=== PATIENT | male | born 1990 | race Caucasian/White ===

== ENCOUNTER 2017-04-25 16:50 | Inpatient (IN) ==
[2017-04-25 18:13] LABS: Basophils % 0.2 %; Eosinophils # 0.2 K/mcL (0.0-0.6); Hematocrit 41.9 % (37.5-50.1); Hemoglobin 14.3 g/dL (12.9-16.9); INR 1.4; Lymphocytes # 1.4 K/mcL (0.6-4.6); Lymphocytes % 7.1 %; Mean Corpuscular HGB Conc 34.1 g/dL (31.6-35.5); Mean Corpuscular Hemoglobin 31.6 pg (28.0-33.3); Mean Corpuscular Volume 92.5 fL (83.0-100.0); Mean Platelet Volume 9.4 fL (9.4-12.4); Monocytes % 4.9 %; Neutrophils # 16.6 K/mcL (1.6-8.9); Platelet Count 153 K/mcL (140-400); Prothrombin Time 15.1 Seconds (9.4-12.1); Red Blood Count 4.53 M/mcL (4.19-5.50); Red Cell Distribution Width 12.3 % (11.5-14.5); Segmented Neutrophils % 85.8 %
[2017-04-25 18:16] LABS: Activated Partial Thrombo Time 30.5 Seconds (26.0-36.0)
[2017-04-25] MEDS: 0.9 % Sodium Chloride 1,000 ML IVC SCH ×3 (18:21→22:57)
[2017-04-25] MEDS ORDERED: Piperacillin/Tazobactam 3.375 GM in D5% in Water (Mini-Bag+) 100 ML IVPB ONE (18:21)
[2017-04-25] MEDS ORDERED: *HR* FentaNYL (PF) 100 MCG/2 ML VIAL IVP ONE (18:21)
[2017-04-25 18:23] LABS: Alanine Aminotransferase 47 Units/L (0-55); Albumin 3.2 g/dL (3.5-5.0); Albumin/Globulin Ratio 0.9 (1.1-2.2); Alkaline Phosphatase 89 Units/L (38-126); Aspartate Amino Transferase 16 Units/L (5-34); BUN/Creatinine Ratio 11 (6-26); Bilirubin,Direct 0.2 mg/dL (0.0-0.5); Bilirubin,Indirect 0.4 mg/dL (0.0-1.2); Bilirubin,Total 0.6 mg/dL (0.2-1.2); Blood Urea Nitrogen 11 mg/dL (8-26); Calcium 10.4 mg/dL (8.6-10.8); Carbon Dioxide 19 mEq/L (19-29); Chloride 100 mEq/L (98-109); Globulin 3.7 g/dL (2.4-3.5); Glucose 474 mg/dL (70-99); Magnesium 1.7 mg/dL (1.6-2.6); Osmolality,Calculated 288 (280-300); Phosphorous 1.8 mg/dL (2.3-4.7); Potassium 4.5 mEq/L (3.5-4.5); Sodium 129 mEq/L (136-145); Total Protein 6.9 g/dL (6.0-8.3); eGFR For African Americans > 60 (> 60); eGFR For Non-African Americans > 60 (> 60)
--- NOTE | 2017-04-25 18:37 | Emergency Department Note ---
Disposition Clinical Impression: Sepsis Qualifiers: Sepsis type: sepsis due to unspecified organism Qualified Code(s): A41.9 - Sepsis, unspecified organism Cellulitis Qualifiers: Site of cellulitis: extremity Site of cellulitis of extremity: lower extremity Laterality: left Qualified Code(s): L03.116 - Cellulitis of left lower limb Disposition: Admitted As Inpatient Condition: Good Skin/Abscess/FB HPI Chief complaint: ED Skin/Abscess/Foreign Body Stated complaint: abscess to leg Time Seen by Provider: 04/25/17 17:33 Source: patient Mode of arrival: ambulatory Limitations: no limitations Nursing Notes Reviewed: Yes Vital Signs Reviewed: Yes HPI Narrative: 26-year-old male presents to the emergency department with concerns of pain and swelling to the left lower extremity. Patient states he has long history of abscesses of the groin. He tried "popping a pimple" of the left medial thigh within the past week. It developed increasing redness and pain. He was seen in urgent care within the past 2 days who incised and drained the area. They also gave him a prescription of doxycycline of which she has taken 2-3 doses. He should not states the erythema has increased and his pain is increased. Patient is now febrile and tachycardic in the emergency department. Home Medications Medication Instructions Recorded Confirmed Buprenorphine HCl/Naloxone HCl 1.5 each SL DAILY 04/25/17 04/25/17 [Suboxone 8 mg-2 mg Sl Film] Doxycycline Hyclate [Vibramycin] 100 mg PO BID 04/25/17 04/25/17 Gabapentin [Neurontin] 300 mg PO TID PRN 04/25/17 04/25/17 Ibuprofen [Motrin] 800 mg PO Q6H PRN 04/25/17 04/25/17 Allergies Allergy/AdvReac Type Severity Reaction Status Date / Time amphotericin B Allergy Anaphylaxis Verified 04/25/17 17:23 clindamycin Allergy Rash Verified 06/06/16 19:10 vancomycin Allergy Rash Verified 06/06/16 19:10 All systems ED: reviewed and negative except as stated. Review of Systems: As Per HPI Constitutional: Reports: fever. Denies: weakness Cardiovascular: Denies: chest pain, palpitations, dyspnea on exertion Respiratory: Denies: cough, dyspnea, wheezes Gastrointestinal: Reports: nausea. Denies: abdominal pain Musculoskeletal: Denies: back pain, neck pain Integumentary: Reports: rash. Denies: abrasion, lesions Past Medical History - Past Medical History Attestation: Yes The following information was validated with the patient. Source: patient Medical history: Reports: cancer Surgical history: Reports: no surgical history Psychiatric history: Reports: no psych history - Social History Smoking Status: Current every day smoker Smokeless Tobacco Status: No Alcohol use: Reports: none Drug use: Reports: none Physical Exam General: Alert and in no acute distress Skin: Warm, dry, 20 x 20 cm area of erythema to the left superior medial thigh. Head: Normocephalic and atraumatic Neck: Supple, trachea midline and no tenderness Cardiovascular: Tachycardic, no murmur, normal perfusion Respiratory: CTAB, no wheezing, cough, or respiratory distress Musculoskeletal: Normal strength, no tenderness, swelling or deformity GI: Soft, nontender, nondistended. Bowel sounds present Neuro: A&O to person, place, time and situation. No focal deficits noted on exam Psychiatric: cooperative and appropriate mood and affect. - General General appearance: alert, in no apparent distress Course Vital Signs Temperature 101.9 F H 04/25/17 17:20 Pulse Rate 131 04/25/17 17:20 Respiratory Rate 16 04/25/17 17:20 Blood Pressure 121/80 04/25/17 17:20 O2 Sat by Pulse Oximetry 96 04/25/17 17:20 Temperature 0 F L 04/25/17 20:13 Pulse Rate 110 04/25/17 19:09 Respiratory Rate 18 04/25/17 20:13 Blood Pressure 124/82 04/25/17 20:13 O2 Sat by Pulse Oximetry 98 04/25/17 19:09 Oxygen Delivery Oxygen Delivery Room Air Skin/Abscess/Foreign Body - MDM Narrative Medical decision making narrative: Patient is likely septic from his cellulitis. Bedside ultrasound did not reveal evidence of abscess for drainage. Patient given Zosyn and Linezolid in the emergency department. Patient admitted to the hospital for further care and evaluation. - Medical Records Medical records reviewed: Yes I reviewed the patient's medical records. - Lab Data Lab results reviewed: Yes I reviewed the patient's lab results. Result diagrams: 04/25/17 17:55 04/25/17 17:55 Lab Results 04/25/17 04/25/17 04/25/17 Range/Units 17:55 17:55 17:55 WBC 19.3 H (4.3-11.1) K/mcL RBC 4.53 (4.19-5.50) M/mcL Hgb 14.3 (12.9-16.9) g/dL Hct 41.9 (37.5-50.1) % MCV 92.5 (83.0-100.0) fL MCH 31.6 (28.0-33.3) pg MCHC 34.1 (31.6-35.5) g/dL RDW 12.3 (11.5-14.5) % Plt Count 153 (140-400) K/mcL MPV 9.4 (9.4-12.4) fL Immature Gran % 1.0 (0-4) % Seg Neutrophils % 85.8 % Lymphocytes % 7.1 % Monocytes % 4.9 % Eosinophils % 1.0 % Basophils % 0.2 % Neutrophils # 16.6 H (1.6-8.9) K/mcL Lymphocytes # 1.4 (0.6-4.6) K/mcL Monocytes # 1.0 (0.0-1.3) K/mcL Eosinophils # 0.2 (0.0-0.6) K/mcL Basophils # 0.0 (0.0-0.2) K/mcL PT 15.1 H (9.4-12.1) Seconds INR 1.4 APTT 30.5 (26.0-36.0) Seconds Sodium 129 L (136-145) mEq/L Potassium 4.5 (3.5-4.5) mEq/L Chloride 100 (98-109) mEq/L Carbon Dioxide 19 (19-29) mEq/L BUN 11 (8-26) mg/dL Creatinine 0.97 (0.72-1.25) mg/dL Est GFR ( Amer) > 60 (> 60) Est GFR (Non-Af Amer) > 60 (> 60) BUN/Creatinine Ratio 11 (6-26) Glucose 474 H (70-99) mg/dL Calculated Osmolality 288 (280-300) Lactic Acid (0.5-2.2) mmol/L Calcium 10.4 (8.6-10.8) mg/dL Phosphorus 1.8 L (2.3-4.7) mg/dL Magnesium 1.7 (1.6-2.6) mg/dL Total Bilirubin 0.6 (0.2-1.2) mg/dL Direct Bilirubin 0.2 (0.0-0.5) mg/dL Indirect Bilirubin 0.4 (0.0-1.2) mg/dL AST 16 (5-34) Units/L ALT 47 (0-55) Units/L Alkaline Phosphatase 89 (38-126) Units/L Troponin I (0-0.03) ng/mL Serum Total Protein 6.9 (6.0-8.3) g/dL Albumin 3.2 L (3.5-5.0) g/dL Globulin 3.7 H (2.4-3.5) g/dL Albumin/Globulin Ratio 0.9 L (1.1-2.2) 04/25/17 04/25/17 Range/Units 17:55 17:55 WBC (4.3-11.1) K/mcL RBC (4.19-5.50) M/mcL Hgb (12.9-16.9) g/dL Hct (37.5-50.1) % MCV (83.0-100.0) fL MCH (28.0-33.3) pg MCHC (31.6-35.5) g/dL RDW (11.5-14.5) % Plt Count (140-400) K/mcL MPV (9.4-12.4) fL Immature Gran % (0-4) % Seg Neutrophils % % Lymphocytes % % Monocytes % % Eosinophils % % Basophils % % Neutrophils # (1.6-8.9) K/mcL Lymphocytes # (0.6-4.6) K/mcL Monocytes # (0.0-1.3) K/mcL Eosinophils # (0.0-0.6) K/mcL Basophils # (0.0-0.2) K/mcL PT (9.4-12.1) Seconds INR APTT (26.0-36.0) Seconds Sodium (136-145) mEq/L Potassium (3.5-4.5) mEq/L Chloride (98-109) mEq/L Carbon Dioxide (19-29) mEq/L BUN (8-26) mg/dL Creatinine (0.72-1.25) mg/dL Est GFR ( Amer) (> 60) Est GFR (Non-Af Amer) (> 60) BUN/Creatinine Ratio (6-26) Glucose (70-99) mg/dL Calculated Osmolality (280-300) Lactic Acid 1.7 (0.5-2.2) mmol/L Calcium (8.6-10.8) mg/dL Phosphorus (2.3-4.7) mg/dL Magnesium (1.6-2.6) mg/dL Total Bilirubin (0.2-1.2) mg/dL Direct Bilirubin (0.0-0.5) mg/dL Indirect Bilirubin (0.0-1.2) mg/dL AST (5-34) Units/L ALT (0-55) Units/L Alkaline Phosphatase (38-126) Units/L Troponin I 0.01 (0-0.03) ng/mL Serum Total Protein (6.0-8.3) g/dL Albumin (3.5-5.0) g/dL Globulin (2.4-3.5) g/dL Albumin/Globulin Ratio (1.1-2.2) - Radiology Data Radiology results reviewed: Yes I reviewed the patient's radiology results. - EKG Data EKG attestation: Yes I reviewed and interpreted this EKG. EKG results narrative: Sinus tachycardia with a rate of 119 without evidence of ischemia or STEMI.
[2017-04-25] MEDS ORDERED: *HR* Promethazine 25 MG/ML VIAL IVP ONE (19:29)
[2017-04-25] MEDS ORDERED: Gabapentin 300 MG CAPSULE PO PRN (20:34)
[2017-04-25] MEDS ORDERED: Naloxone 0.4 MG/ML INJ IVP PRN (20:36)
[2017-04-25] MEDS ORDERED: *HR* Dextrose 50 % in Water (Syg) 50 ML SYRINGE IVP PRN (20:44)
[2017-04-25] MEDS ORDERED: Dextrose Gel 15 GM PO PRN ×2 (20:44)
[2017-04-25] MEDS ORDERED: D5% in Water 1,000 ML IVC PRN (20:44)
--- NOTE | 2017-04-25 20:51 | Internal Med History&Physical ---
Date of Encounter: 04/25/17 Time of Encounter: 20:48 Assessment and Plan (1) Abscess Current visit: Yes Status: Acute with overlying cellulitis. Continue linezolid in the ED given allergies. D/w Dr Lord of surgery who will evaluated in the morning. IVF (2) Cellulitis Current visit: Yes Status: Acute continue antibiotics above Qualifiers: Site of cellulitis: extremity Site of cellulitis of extremity: lower extremity Qualified Code(s): L03.116 - Cellulitis of left lower limb (3) Diabetes type 2, uncontrolled Current visit: Yes Status: Acute no prior hx of DMII but sugars high. Check A1c, ISS for now. Likely newly dx DMII Qualifiers: Diabetes mellitus complication status: with hyperglycemia Diabetes mellitus rat exterminator insulin use: unspecified rat exterminator insulin use status Qualified Code(s): E11.65 - Type 2 diabetes mellitus with hyperglycemia Internal Medicine - H&P: HPI Chief complaint: Left thigh abscess History of present illness: Mr. Ansari is a 26 year old male who presents with acute left medial thigh abscess and cellulitis. He has a hx of recurrent cellulitis around his inner thighs. 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 He explained that he would often that a folliculitis that progress into an abscess. In the last 2 days, noted progressive swelling, erythema and pain locally. He went to the [facility] [place] urgent care where is was drained yesterday evening but developed worsening swelling and erythema leading to ED visit. Associated with fever 102, 101.9 Of note, he has allergy to clinda and vanco on chart He uses suboxone and appears to be off drugs at current Past Med Surg Social Fam HX - Past Medical History Medical history: cancer Psychiatric history: no psych history - Past Surgical History Surgical History: no surgical history - Social History Smoking Status: Current every day smoker Smokeless Tobacco Status: No Alcohol use: none Drug use: none Internal Medicine - H&P: Meds Buprenorphine HCl/Naloxone HCl [Suboxone 8 mg-2 mg Sl Film] 1.5 each SL DAILY [History] Doxycycline Hyclate [Vibramycin] 100 mg PO BID 04/25/17 [History] Gabapentin [Neurontin] 300 mg PO TID PRN 04/25/17 [History] Ibuprofen [Motrin] 800 mg PO Q6H PRN 04/25/17 [History] 3 Allergy/AdvReac Type Severity Reaction Status Date / Time amphotericin B Allergy Anaphylaxis Verified 04/25/17 17:23 clindamycin Allergy Rash Verified 06/06/16 19:10 vancomycin Allergy Rash Verified 06/06/16 19:10 All Systems PM: A 10-system review of systems was performed and is negative for pertinent findings except as documented above in the HPI. Review of systems: ROS 14 point review of systems reviewed as best as possible given presentation. Pertinent positive or negative as per HPI or otherwise reviewed as negative - Constitutional Vitals: Temp Pulse Resp BP Pulse Ox 0 F L 110 18 124/82 98 04/25/17 20:13 04/25/17 19:09 04/25/17 20:13 04/25/17 20:13 04/25/17 19:09 Exam: General - AAO x 3. Obesity Psych - Appropriate affect/speech. No agitation Eyes - OFELIA. Eye lids intact. No scleral icterus Heart - Sinus. RRR. S1 and S2 present. No added HS/murmurs appreciated. No elevated JVD appreciated. Lung - Adequate air entry b/l, No crackles/wheezes appreciated GI - Soft, non-tender. No hepatosplenomegaly/ascites. BS+ - No CVA/suprapubic tenderness or palpable bladder distension Skin -left thigh by erythema and swelling MSK - Joints with normal ROM. No joint swellings Internal Med - H&P Results - Labs CBC & Chem 7: 04/25/17 17:55 04/25/17 17:55
[2017-04-25] MEDS ORDERED: 0.9 % Sodium Chloride 1,000 ML IVC ONE (20:56)
[2017-04-25] MEDS: Ibuprofen 800 MG TABLET PO PRN (23:02)
[2017-04-26] MEDS: *HR* Morphine 2 MG/ML SYRINGE IVP PRN ×5 (00:12→22:36)
[2017-04-26] MEDS: Insulin LISPRO 300 UNITS/3 ML VIAL SQ SCH ×5 (01:23→21:12)
[2017-04-26] MEDS: *HR* Enoxaparin 40 MG/0.4 ML SYRINGE SQ SCH ×2 (05:30→05:34)
[2017-04-26 05:59] LABS: Basophils % 0.2 %; Eosinophils # 0.3 K/mcL (0.0-0.6); Hematocrit 39.2 % (37.5-50.1); Hemoglobin 12.9 g/dL (12.9-16.9); Immature Granulocytes % 1.4 % (0-4); Lymphocytes # 1.5 K/mcL (0.6-4.6); Lymphocytes % 9.3 %; Mean Corpuscular HGB Conc 32.9 g/dL (31.6-35.5); Mean Corpuscular Hemoglobin 30.6 pg (28.0-33.3); Mean Corpuscular Volume 93.1 fL (83.0-100.0); Mean Platelet Volume 9.3 fL (9.4-12.4); Monocytes % 5.8 %; Neutrophils # 13.4 K/mcL (1.6-8.9); Platelet Count 148 K/mcL (140-400); Red Blood Count 4.21 M/mcL (4.19-5.50); Red Cell Distribution Width 12.4 % (11.5-14.5); Segmented Neutrophils % 81.3 %
[2017-04-26 06:05] LABS: Hemoglobin A1C 7.4 %
[2017-04-26 06:09] LABS: BUN/Creatinine Ratio 13 (6-26); Blood Urea Nitrogen 10 mg/dL (8-26); Calcium 9.5 mg/dL (8.6-10.8); Carbon Dioxide 23 mEq/L (19-29); Chloride 104 mEq/L (98-109); Glucose 283 mg/dL (70-99); Osmolality,Calculated 287 (280-300); Sodium 134 mEq/L (136-145); eGFR For African Americans > 60 (> 60); eGFR For Non-African Americans > 60 (> 60)
[2017-04-26] MEDS ORDERED: *HR* Buprenorphine HCl 8 MG TAB.SUBL SL SCH (09:00)
[2017-04-26] MEDS ORDERED: Patient Taking Own Medication 1 EACH SL SCH (09:00)
--- NOTE | 2017-04-26 10:37 | General Surgery Consult Note ---
<Katie Baker Doreen - Last Filed: 04/26/17 10:34> Date of Encounter: 04/26/17 Time of Encounter: 10:35 Assessment and Plan (1) Cellulitis Current Visit: Yes Status: Acute Ultrasound soft tissue left lower extremity, continue IV antibiotics continue packing 1/4 inch playing gauze to the previous I and D site further recommendations pending Will add Duoneb treatments given smoking history and current wheezes Qualifiers: Site of cellulitis: extremity Site of cellulitis of extremity: lower extremity Laterality: left Qualified Code(s): L03.116 - Cellulitis of left lower limb (2) Smoking addiction Current Visit: Yes Status: Chronic Scheduled Duonebs Smoking Cessation (3) Sepsis Current Visit: Yes Status: Acute Per medicine Qualifiers: Sepsis type: sepsis due to unspecified organism Qualified Code(s): A41.9 - Sepsis, unspecified organism History of Present Illness Consult date: 04/25/17 (Dr. Gurinder Causey) Reason for consult: other (LLE abscess) Requesting physician: Chaz Benson History of present illness: Constantine is a 26 year old male with a history of AML (2005 and treated with chemo/radiation), DVT, smoking addiction (one pack per day for 7 years), obesity, opioid dependency (uses Suboxone) and frequent skin abscesses/ folliculitis. He presented yesterday with complaints of left lower extremity abscess, fever, and left leg discomfort. He states he had went to an urgent care where the abscess was drained, packed, and he was given a Rocephin injection as well as DC online doxycycline. He states that the discomfort and size of the abscess has only gotten larger. He is noted to have an allergy to vancomycin and clindamycin. He denies headache, dizziness chest pain, shortness of breath, nausea, vomiting , changes in bowel habits, or IV drug use. We have been asked to evaluate the patient for possible surgical intervention for left lower extremity abscess. Past Med Surg Social Fam HX - Past Medical History Source: patient Medical history: cancer, DVT Psychiatric history: no psych history - Past Surgical History Surgical History: no surgical history - Social History Smoking Status: Current every day smoker Packs per day: 1 Smokeless Tobacco Status: No Alcohol use: none Drug use: none Occupational status: unemployed (Fast-food porter) Current living situation: Home - Independent Recent Out of Country Travel Within the Last 8 Weeks: No Exposure or Possible Exposure to Illness During Travel: No - Family History Mother Living Status: Still Living Hx Family Endocrine Disorder: Yes (DM) Father Living Status: Still Living Hx Family Cardiac Disorders: Yes Medications and Allergies Buprenorphine HCl/Naloxone HCl [Suboxone 8 mg-2 mg Sl Film] 1.5 each SL DAILY [History] Doxycycline Hyclate [Vibramycin] 100 mg PO BID 04/25/17 [History] Gabapentin [Neurontin] 300 mg PO TID PRN 04/25/17 [History] Ibuprofen [Motrin] 800 mg PO Q6H PRN 04/25/17 [History] 3 Allergy/AdvReac Type Severity Reaction Status Date / Time amphotericin B Allergy Anaphylaxis Verified 04/25/17 17:23 clindamycin Allergy Rash Verified 06/06/16 19:10 vancomycin Allergy Rash Verified 06/06/16 19:10 Review of Systems All systems PM: A 10-system review of systems was performed and is negative for pertinent findings except as documented above in the HPI. General Surgery Exam Initial Vital Signs Temp Pulse Resp BP Pulse Ox 101.9 F H 131 16 121/80 96 04/25/17 17:20 04/25/17 17:20 04/25/17 17:20 04/25/17 17:20 04/25/17 17:20 - General physical appearance well developed, well nourished, no distress, obese - ENT atraumatic, normocephalic - Neck trachea midline, no venous distension - Respiratory other (Decreased respiratory expansion. Upper lobe expiratory wheezes) - Cardiovascular Cardiovascular exam: Present: RRR, distant heart sounds - Abdomen Abdomen general surgery: Present: bowel sounds present, soft, non tender Hernia: Present: none - Integumentary Integumentary general surgery: Present: warm and dry, other (Left medial thigh with approximately cantaloupe sized area of cellulitis. No area of fluctuations is appreciated. There is a small previous incision with packing in place. The packing is removed no purluent drainage noted. Multiple tattoos noted.) - Neurologic Present: CN 2-12 grossly intact, normal coordination, normal sensation - Musculoskeletal Present: normal gait, normal posture - Psychiatric Psychiatric general surgery: Present: A&Ox3, appropriate, oriented to person, oriented to place, oriented to time, speech is normal, memory intact Exam Initial Vital Signs Temp Pulse Resp BP Pulse Ox 101.9 F H 131 16 121/80 96 04/25/17 17:20 04/25/17 17:20 04/25/17 17:20 04/25/17 17:20 04/25/17 17:20 Results - Labs 04/26/17 05:49 04/26/17 05:49 Abnormal lab results WBC 16.4 K/mcL (4.3-11.1) H 04/26/17 05:49 MPV 9.3 fL (9.4-12.4) L 04/26/17 05:49 Neutrophils # 13.4 K/mcL (1.6-8.9) H 04/26/17 05:49 PT 15.1 Seconds (9.4-12.1) H 04/25/17 17:55 Sodium 134 mEq/L (136-145) L 04/26/17 05:49 Glucose 283 mg/dL (70-99) H 04/26/17 05:49 POC Glucose 276 (58-89) H 04/26/17 07:09 Hemoglobin A1c 7.4 % (-5.6) H 04/26/17 05:49 Phosphorus 1.8 mg/dL (2.3-4.7) L 04/25/17 17:55 Albumin 3.2 g/dL (3.5-5.0) L 04/25/17 17:55 Globulin 3.7 g/dL (2.4-3.5) H 04/25/17 17:55 Albumin/Globulin Ratio 0.9 (1.1-2.2) L 04/25/17 17:55 Diabetes panel 04/26/17 04/26/17 Range/Units 05:49 05:49 Sodium 134 L (136-145) mEq/L Potassium 4.0 (3.5-4.5) mEq/L Chloride 104 (98-109) mEq/L Carbon Dioxide 23 (19-29) mEq/L BUN 10 (8-26) mg/dL Creatinine 0.80 (0.72-1.25) mg/dL Glucose 283 H (70-99) mg/dL Hemoglobin A1c 7.4 H ( - 5.6) % Calcium 9.5 (8.6-10.8) mg/dL Calcium panel 04/26/17 Range/Units 05:49 Calcium 9.5 (8.6-10.8) mg/dL Pituitary panel 04/26/17 Range/Units 05:49 Sodium 134 L (136-145) mEq/L Potassium 4.0 (3.5-4.5) mEq/L Chloride 104 (98-109) mEq/L Carbon Dioxide 23 (19-29) mEq/L BUN 10 (8-26) mg/dL Creatinine 0.80 (0.72-1.25) mg/dL Glucose 283 H (70-99) mg/dL Calcium 9.5 (8.6-10.8) mg/dL Adrenal panel 04/26/17 Range/Units 05:49 Sodium 134 L (136-145) mEq/L Potassium 4.0 (3.5-4.5) mEq/L Chloride 104 (98-109) mEq/L Carbon Dioxide 23 (19-29) mEq/L BUN 10 (8-26) mg/dL Creatinine 0.80 (0.72-1.25) mg/dL Glucose 283 H (70-99) mg/dL Calcium 9.5 (8.6-10.8) mg/dL All other labs normal. Consult Discharge Plan - Plan Referrals: Leona Calderón MD [Primary Care Provider] - <Gurinder Causey - Last Filed: 04/26/17 14:19> Date of Encounter: 04/26/17 Review of Systems All systems PM: A 10-system review of systems was performed and is negative for pertinent findings except as documented above in the HPI. General Surgery Exam Initial Vital Signs Temp Pulse Resp BP Pulse Ox 101.9 F H 131 16 121/80 96 04/25/17 17:20 04/25/17 17:20 04/25/17 17:20 04/25/17 17:20 04/25/17 17:20 Exam Initial Vital Signs Temp Pulse Resp BP Pulse Ox 101.9 F H 131 16 121/80 96 04/25/17 17:20 04/25/17 17:20 04/25/17 17:20 04/25/17 17:20 04/25/17 17:20 Results - Labs 04/26/17 05:49 04/26/17 05:49 Abnormal lab results WBC 16.4 K/mcL (4.3-11.1) H 04/26/17 05:49 MPV 9.3 fL (9.4-12.4) L 04/26/17 05:49 Neutrophils # 13.4 K/mcL (1.6-8.9) H 04/26/17 05:49 PT 15.1 Seconds (9.4-12.1) H 04/25/17 17:55 Sodium 134 mEq/L (136-145) L 04/26/17 05:49 Glucose 283 mg/dL (70-99) H 04/26/17 05:49 POC Glucose 270 (58-89) H 04/26/17 11:58 Hemoglobin A1c 7.4 % (-5.6) H 04/26/17 05:49 Phosphorus 1.8 mg/dL (2.3-4.7) L 04/25/17 17:55 Albumin 3.2 g/dL (3.5-5.0) L 04/25/17 17:55 Globulin 3.7 g/dL (2.4-3.5) H 04/25/17 17:55 Albumin/Globulin Ratio 0.9 (1.1-2.2) L 04/25/17 17:55 Diabetes panel 04/26/17 04/26/17 Range/Units 05:49 05:49 Sodium 134 L (136-145) mEq/L Potassium 4.0 (3.5-4.5) mEq/L Chloride 104 (98-109) mEq/L Carbon Dioxide 23 (19-29) mEq/L BUN 10 (8-26) mg/dL Creatinine 0.80 (0.72-1.25) mg/dL Glucose 283 H (70-99) mg/dL Hemoglobin A1c 7.4 H ( - 5.6) % Calcium 9.5 (8.6-10.8) mg/dL Calcium panel 04/26/17 Range/Units 05:49 Calcium 9.5 (8.6-10.8) mg/dL Pituitary panel 04/26/17 Range/Units 05:49 Sodium 134 L (136-145) mEq/L Potassium 4.0 (3.5-4.5) mEq/L Chloride 104 (98-109) mEq/L Carbon Dioxide 23 (19-29) mEq/L BUN 10 (8-26) mg/dL Creatinine 0.80 (0.72-1.25) mg/dL Glucose 283 H (70-99) mg/dL Calcium 9.5 (8.6-10.8) mg/dL Adrenal panel 04/26/17 Range/Units 05:49 Sodium 134 L (136-145) mEq/L Potassium 4.0 (3.5-4.5) mEq/L Chloride 104 (98-109) mEq/L Carbon Dioxide 23 (19-29) mEq/L BUN 10 (8-26) mg/dL Creatinine 0.80 (0.72-1.25) mg/dL Glucose 283 H (70-99) mg/dL Calcium 9.5 (8.6-10.8) mg/dL All other labs normal. - Attending Attestation I examined this patient and my medical decision-making was reviewed with the Resident Physician. I agree with the documented findings, disposition and treatment plan as described except to the extent set forth below. The patient is seen and evaluated with the resident. I made careful evaluation of the left thigh. He has a good deal of erythema but the ultrasound in the emergency room failed to demonstrate a fluid collection. We will repeat the ultrasound of the left thigh and continue treating aggressively with IV antibiotics. His hemoglobin A1c is elevated. Gurinder Causey MD FACS
[2017-04-26] MEDS: Ipratropium/Albuterol Neb 3 ML IH SCH ×6 (11:17→23:17)
[2017-04-26] MEDS: 0.9 % Sodium Chloride 1,000 ML IVC SCH (17:02)
--- NOTE | 2017-04-26 17:47 | Internal Med Progress Note ---
Date of Encounter: 04/26/17 Time of Encounter: 10:00 - Assessment and plan (1) Cellulitis Current Visit: Yes Status: Acute Assessment and plan: -General surgery following recommendations to continue packing 1/4 inch playing gauze to the previous I and D site. -Will continue IV linezolid. Qualifiers: Site of cellulitis: extremity Site of cellulitis of extremity: lower extremity Laterality: left Qualified Code(s): L03.116 - Cellulitis of left lower limb (2) Sepsis Current Visit: Yes Status: Resolved Assessment and plan: -Secondary to above Qualifiers: Sepsis type: sepsis due to unspecified organism Qualified Code(s): A41.9 - Sepsis, unspecified organism (3) Diabetes type 2, uncontrolled Current Visit: Yes Status: Acute Assessment and plan: -Patient claims not to be diabetic per nursing. -Patient will be covered with sliding scale insulin while inpatient. Qualifiers: Diabetes mellitus complication status: with hyperglycemia Diabetes mellitus fdc insulin use: unspecified continuous churn buttermaker insulin use status Qualified Code(s): E11.65 - Type 2 diabetes mellitus with hyperglycemia - Subjective Interval history: Patient with left lower extremity discomfort secondary to left lower leg cellulitis. - Constitutional Vitals: Temp Pulse Resp BP Pulse Ox 99.5 F 112 18 147/84 96 04/26/17 15:07 04/26/17 15:07 04/26/17 15:07 04/26/17 15:07 04/26/17 15:07 - Respiratory Respiratory exam: Present: CTAB. Absent: accessory muscle use, rales, rhonchi, wheezes - Cardiovascular Cardiovascular exam: Present: RRR, +S1, +S2. Absent: diastolic murmur, gallop, rubs, systolic murmur - Expanded Lower Extremities Exam Lower Leg exam: Present: erythema, tenderness Internal Medicine: Result - Labs CBC & Chem 7: 04/26/17 05:49 04/26/17 05:49 Labs: Short CBC 04/26/17 Range/Units 05:49 WBC 16.4 H (4.3-11.1) K/mcL Hgb 12.9 (12.9-16.9) g/dL Hct 39.2 (37.5-50.1) % Plt Count 148 (140-400) K/mcL Neutrophils # 13.4 H (1.6-8.9) K/mcL BMP 09/27/17 05:49 Sodium 134 L Potassium 4.0 Chloride 104 Carbon Dioxide 23 BUN 10 Creatinine 0.80 Glucose 283 H Calcium 9.5 - ABG Interpretation ABG results: PT/INR, D-dimer PT 15.1 Seconds (9.4-12.1) H 04/25/17 17:55 - Impressions Impressions Extremity Ultrasound 04/26/17 10:30 IMPRESSION: Focal cellulitis at the area of concern in the medial left thigh. An underlying abscess measures at least 0.4 cm x 2.3 cm x 1.2 cm. Of note, the most medial portion of the abscess was partially excluded, and the entire extent may be slightly underestimated. Consider further evaluation with CT or MRI if there are clinical findings suggestive of deeper infection. D/ / iMtchell Davila MD / Mitchell Davila MD Interpreting Provider: Mitchell Davila MD Consult Discharge Plan - Plan Referrals: Leona Calderón MD [Primary Care Provider] -
--- NOTE | 2017-04-26 18:52 | Electrocardiograph Report ---
[place] [id number] Test Date: 2017-04-25 Pat Name: Constantine Ansari Department: 102 Room: 3A Gender: M Storage Engineer: Tmr : 1990 Requested By: Mateo Livingston Order Number: [id number] Reading MD: Parveen Lay MD Measurements Intervals [place] Rate: 119 P: 71 IN: 116 QRS: 81 QRSD: 88 T: 37 QT: 285 QTc: 356 Interpretive Statements SINUS TACHYCARDIA WITH SHORT IN INTERVAL Electronically Signed On 04-26-2017 18:51:03 EDT by Parveen Lay MD
[2017-04-27] MEDS: Ipratropium/Albuterol Neb 3 ML IH SCH ×6 (03:29→23:16)
[2017-04-27 04:45] LABS: Basophils % 0.3 %; Eosinophils # 0.3 K/mcL (0.0-0.6); Eosinophils % 2.9 %; Hematocrit 38.7 % (37.5-50.1); Hemoglobin 12.5 g/dL (12.9-16.9); Immature Granulocytes % 1.3 % (0-4); Lymphocytes # 1.8 K/mcL (0.6-4.6); Lymphocytes % 15.4 %; Mean Corpuscular HGB Conc 32.3 g/dL (31.6-35.5); Mean Corpuscular Hemoglobin 30.7 pg (28.0-33.3); Mean Corpuscular Volume 95.1 fL (83.0-100.0); Mean Platelet Volume 9.6 fL (9.4-12.4); Monocytes # 0.7 K/mcL (0.0-1.3); Monocytes % 6.3 %; Neutrophils # 8.4 K/mcL (1.6-8.9); Platelet Count 146 K/mcL (140-400); Red Blood Count 4.07 M/mcL (4.19-5.50); Red Cell Distribution Width 12.4 % (11.5-14.5); Segmented Neutrophils % 73.8 %
[2017-04-27 04:55] LABS: BUN/Creatinine Ratio 12 (6-26); Blood Urea Nitrogen 9 mg/dL (8-26); Calcium 9.4 mg/dL (8.6-10.8); Carbon Dioxide 22 mEq/L (19-29); Chloride 106 mEq/L (98-109); Glucose 323 mg/dL (70-99); Osmolality,Calculated 291 (280-300); Potassium 4.8 mEq/L (3.5-4.5); Sodium 135 mEq/L (136-145); eGFR For African Americans > 60 (> 60); eGFR For Non-African Americans > 60 (> 60)
[2017-04-27] MEDS: *HR* Morphine 2 MG/ML SYRINGE IVP PRN ×3 (05:25→18:44)
[2017-04-27] MEDS: *HR* Enoxaparin 40 MG/0.4 ML SYRINGE SQ SCH ×2 (05:25→09:35)
[2017-04-27] MEDS: 0.9 % Sodium Chloride 1,000 ML IVC SCH ×2 (05:32→09:35)
[2017-04-27] MEDS: Insulin LISPRO 300 UNITS/3 ML VIAL SQ SCH ×4 (09:34→22:33)
[2017-04-27] MEDS: Ibuprofen 800 MG TABLET PO PRN (09:35)
--- NOTE | 2017-04-27 10:45 | General Surgery Progress Note ---
Date of Encounter: 04/27/17 Time of Encounter: 10:42 - Assessment and Plan (1) Cellulitis Current Visit: Yes Status: Acute Ultrasound soft tissue left lower extremity completed yesterday and indicated a small are of fluid collection. Erythema has decreased significantly with IV ABX. Previous I&D site appears consistent with cellutlitis. There remains no area amenable to further I&D. -continue IV antibiotics -Continue Wound care daily: Remove packing. Shower/wash with soap and water. Repack with 1/4 inch plain gauze (to the previous I and D site), cover with dry dressing. Ordered warm compresses Q4H on 04/26/2017. Per pt this has not been completed. Continue warm compresses Q4H to left thigh. Will review with bedside RN. Qualifiers: Site of cellulitis: extremity Site of cellulitis of extremity: lower extremity Laterality: left Qualified Code(s): L03.116 - Cellulitis of left lower limb (2) Smoking addiction Current Visit: Yes Status: Chronic Scheduled Duonebs Smoking Cessation (3) Sepsis Current Visit: Yes Status: Resolved Per medicine Qualifiers: Sepsis type: sepsis due to unspecified organism Qualified Code(s): A41.9 - Sepsis, unspecified organism Subjective Patient reports: no new complaints, feels better, still having pain, pain is less, tolerating a regular diet, voiding w/o difficulty, no bowel movement, afebrile Objective Vital Signs - Last 8 Hours Temp Pulse Resp BP Pulse Ox 04/27/17 06:24 98.3 F 89 18 132/80 98 04/27/17 03:29 97.9 F 89 18 122/86 99 Intake and Output 04/26/17 04/27/17 04/27/17 23:59 07:59 15:59 Intake Total 780 / 780 1000 / 1000 1240 / 1240 Output Total 400 / 400 175 / 175 0 / 0 Balance 380 / 380 825 / 825 1240 / 1240 Intake: IV Fluids 300 / 300 1000 / 1000 1000 / 1000 0.9 % Sodium Chloride 1,000 ML 1000 / 1000 1000 / 1000 @ 100 mls/hr IVC .Q10H [facility] Rx#: [id number] Zyvox Premix 600mg/300mL 600 mg 300 / 300 In 300 ml @ 150 mls/hr IVPB Q12HR [facility] Rx#:[id number] Oral 480 / 480 240 / 240 Output: Urine 400 / 400 175 / 175 0 / 0 Other: Meal Dinner Breakfast Percent of Meal Consumed 100% 100% Weight 148.688 kg Blood Glucose* 230 267 Patient Weight 04/27/17 23:59 Weight 148.688 kg - General physical appearance no distress, moderate pain - ENT atraumatic, normocephalic - Neck Neck exam: trachea midline - Respiratory normal expansion, normal respiratory effort, clear to auscultation - Cardiovascular Cardiovascular exam: Present: RRR, distant heart sounds - Abdomen Abdomen: Present: bowel sounds present, soft, non tender - Integumentary no rash, other (LLE (thigh) erythema has decreased. The area surrounding the previous I&D site appears consistent with cellutlitis. There remains no area amenable to furhter I&D.) - Neurologic CN 2-12 grossly intact, normal coordination - Musculoskeletal normal gait - Psychiatric oriented to time, oriented to person, oriented to place, speech is normal, memory intact - Labs 04/27/17 04:31 04/27/17 04:31 Diabetes panel 04/27/17 Range/Units 04:31 Sodium 135 L (136-145) mEq/L Potassium 4.8 H (3.5-4.5) mEq/L Chloride 106 (98-109) mEq/L Carbon Dioxide 22 (19-29) mEq/L BUN 9 (8-26) mg/dL Creatinine 0.76 (0.72-1.25) mg/dL Glucose 323 H (70-99) mg/dL Calcium 9.4 (8.6-10.8) mg/dL Calcium panel 04/27/17 Range/Units 04:31 Calcium 9.4 (8.6-10.8) mg/dL Pituitary panel 04/27/17 Range/Units 04:31 Sodium 135 L (136-145) mEq/L Potassium 4.8 H (3.5-4.5) mEq/L Chloride 106 (98-109) mEq/L Carbon Dioxide 22 (19-29) mEq/L BUN 9 (8-26) mg/dL Creatinine 0.76 (0.72-1.25) mg/dL Glucose 323 H (70-99) mg/dL Calcium 9.4 (8.6-10.8) mg/dL Adrenal panel 04/27/17 Range/Units 04:31 Sodium 135 L (136-145) mEq/L Potassium 4.8 H (3.5-4.5) mEq/L Chloride 106 (98-109) mEq/L Carbon Dioxide 22 (19-29) mEq/L BUN 9 (8-26) mg/dL Creatinine 0.76 (0.72-1.25) mg/dL Glucose 323 H (70-99) mg/dL Calcium 9.4 (8.6-10.8) mg/dL Consult Discharge Plan - Plan Referrals: Leona Calderón MD [Primary Care Provider] -
[2017-04-27] MEDS: *HR* Metformin 500 MG TABLET PO SCH ×2 (13:30→18:35)
--- NOTE | 2017-04-27 18:46 | Internal Med Progress Note ---
Date of Encounter: 04/27/17 Time of Encounter: 10:00 - Assessment and plan (1) Cellulitis Current Visit: Yes Status: Acute Assessment and plan: -Erythema is decreasing and receding from marked borders. -General surgery following recommendations to continue packing 1/4 inch playing gauze to the previous I and D site. -Will continue IV linezolid. Qualifiers: Site of cellulitis: extremity Site of cellulitis of extremity: lower extremity Laterality: left Qualified Code(s): L03.116 - Cellulitis of left lower limb (2) Sepsis Current Visit: Yes Status: Resolved Assessment and plan: -Secondary to above Qualifiers: Sepsis type: sepsis due to unspecified organism Qualified Code(s): A41.9 - Sepsis, unspecified organism (3) Diabetes type 2, uncontrolled Current Visit: Yes Status: Acute Assessment and plan: -Patient started on metformin. Qualifiers: Diabetes mellitus complication status: with hyperglycemia Diabetes mellitus watermaster insulin use: unspecified watermaster insulin use status Qualified Code(s): E11.65 - Type 2 diabetes mellitus with hyperglycemia - Subjective Interval history: Patient with left lower extremity discomfort secondary to left lower leg cellulitis. - Constitutional Vitals: Temp Pulse Resp BP Pulse Ox 98.0 F 95 16 117/77 97 04/27/17 15:11 04/27/17 15:11 04/27/17 15:16 04/27/17 15:11 04/27/17 15:16 - Respiratory Respiratory exam: Present: CTAB. Absent: accessory muscle use, rales, rhonchi, wheezes - Cardiovascular Cardiovascular exam: Present: RRR, +S1, +S2. Absent: diastolic murmur, gallop, rubs, systolic murmur - Skin Skin exam: Present: erythema Additional comments: Erythema has decreased and is receding from marked borders. Internal Medicine: Result - Labs CBC & Chem 7: 04/27/17 04:31 04/27/17 04:31 Labs: Short CBC 04/27/17 Range/Units 04:31 WBC 11.4 H (4.3-11.1) K/mcL Hgb 12.5 L (12.9-16.9) g/dL Hct 38.7 (37.5-50.1) % Plt Count 146 (140-400) K/mcL Neutrophils # 8.4 (1.6-8.9) K/mcL [facility] 04/27/17 04:31 Sodium 135 L Potassium 4.8 H Chloride 106 Carbon Dioxide 22 BUN 9 Creatinine 0.76 Glucose 323 H Calcium 9.4 - ABG Interpretation ABG results: PT/INR, D-dimer PT 15.1 Seconds (9.4-12.1) H 04/25/17 17:55 Consult Discharge Plan - Plan Referrals: Leona Calderón MD [Primary Care Provider] -
[2017-04-28] MEDS: Ipratropium/Albuterol Neb 3 ML IH SCH ×3 (03:05→11:10)
[2017-04-28] MEDS: *HR* Morphine 2 MG/ML SYRINGE IVP PRN ×2 (04:41→10:49)
[2017-04-28 05:47] LABS: Basophils % 0.2 %; Eosinophils # 0.2 K/mcL (0.0-0.6); Eosinophils % 2.4 %; Hematocrit 38.8 % (37.5-50.1); Hemoglobin 12.5 g/dL (12.9-16.9); Immature Granulocytes % 0.9 % (0-4); Lymphocytes # 1.9 K/mcL (0.6-4.6); Lymphocytes % 21.9 %; Mean Corpuscular HGB Conc 32.2 g/dL (31.6-35.5); Mean Corpuscular Hemoglobin 30.4 pg (28.0-33.3); Mean Corpuscular Volume 94.4 fL (83.0-100.0); Mean Platelet Volume 9.3 fL (9.4-12.4); Monocytes # 0.6 K/mcL (0.0-1.3); Neutrophils # 5.8 K/mcL (1.6-8.9); Platelet Count 197 K/mcL (140-400); Red Blood Count 4.11 M/mcL (4.19-5.50); Red Cell Distribution Width 12.3 % (11.5-14.5); Segmented Neutrophils % 67.6 %
[2017-04-28 06:03] LABS: BUN/Creatinine Ratio 13 (6-26); Blood Urea Nitrogen 10 mg/dL (8-26); Carbon Dioxide 25 mEq/L (19-29); Chloride 103 mEq/L (98-109); Glucose 176 mg/dL (70-99); Osmolality,Calculated 285 (280-300); Sodium 136 mEq/L (136-145); eGFR For African Americans > 60 (> 60); eGFR For Non-African Americans > 60 (> 60)
[2017-04-28] MEDS: *HR* Enoxaparin 40 MG/0.4 ML SYRINGE SQ SCH (06:18)
[2017-04-28] MEDS: Insulin LISPRO 300 UNITS/3 ML VIAL SQ SCH ×2 (08:24→12:25)
[2017-04-28] MEDS: *HR* Metformin 500 MG TABLET PO SCH (08:24)
--- NOTE | 2017-04-28 09:02 | General Surgery Progress Note ---
<Ana Paula Maurice - Last Filed: 04/28/17 08:58> Date of Encounter: 04/28/17 Time of Encounter: 06:50 - Assessment and Plan (1) Abscess Current Visit: Yes Status: Acute Ultrasound soft tissue left lower extremity completed and indicated a small are of fluid collection. Erythema has decreased significantly with IV Linazolid. Previous I&D site appears consistent with cellutlitis. There remains no area amenable to further I &D. Per patient's significant other she called urgent care for the wound cultures and he was found to have MRSA. Patient placed on precautions. Plan: - continue IV antibiotics - Continue Wound care daily: Remove packing. Shower/wash with soap and water. Repack with 1/4 inch plain gauze (to the previous I and D site), cover with dry dressing. - Ordered warm compresses Q4H on 04/26/2017. Per pt this has not been completed. Continue warm compresses Q4H to left thigh. Will review with bedside RN. (2) Sepsis Current Visit: Yes Status: Resolved Patient still febrile with a max of 100.5, tachicardic and a confirmed source of infection, MRSA reported by the patient's significant other from prior culture. Continue Linezolid. Qualifiers: Sepsis type: sepsis due to unspecified organism Qualified Code(s): A41.9 - Sepsis, unspecified organism (3) Smoking addiction Current Visit: Yes Status: Chronic DuoNebs Q4hrs. Today is not wheezing. (4) Diabetes type 2, uncontrolled Current Visit: Yes Status: Acute Will delay wound healing if blood glucose is uncontrolled. Will keep sugars under control with sliding scale. Qualifiers: Diabetes mellitus complication status: with hyperglycemia Diabetes mellitus nursing home insulin use: unspecified terminal carman insulin use status Qualified Code(s): E11.65 - Type 2 diabetes mellitus with hyperglycemia Subjective Narrative: Patient is a 26-year-old male past medical history of Suboxone use, diabetes, recurrent cellulitis presented to the hospital at the left medial thigh abscess and cellulitis and found to have sepsis. Today, patient is feeling a little better and has noticed decrease in redness at the abscess site. Denies N/V, SOB, or chest pain. Objective Vital Signs - Last 8 Hours Temp Pulse Resp BP Pulse Ox 04/28/17 07:33 98.2 F 88 17 136/78 97 04/28/17 04:18 98.2 F 90 16 139/85 97 Intake and Output 04/27/17 04/28/17 04/28/17 23:59 07:59 15:59 Intake Total 540 / 540 300 / 300 Output Total 350 / 350 400 / 400 Balance 190 / 190 -400 / -400 300 / 300 Intake: IV Fluids 300 / 300 300 / 300 Zyvox Premix 600mg/300mL 600 mg 300 / 300 300 / 300 In 300 ml @ 150 mls/hr IVPB Q12HR [facility]UL[facility] Rx#:[id number] Oral 240 / 240 Output: Urine 350 / 350 400 / 400 Other: Meal Dinner Percent of Meal Consumed 100% # Voids 1 Weight 146.964 kg Blood Glucose* 222 181 Patient Weight 04/28/17 23:59 Weight 146.964 kg - Additional Exam Constitutional: Alert, in no acute distress, well nourished, well developed. Head: Normocephalic, atraumatic, normal contour and symmetric, no masses, lesions or scars Heart: Normal, regular rate and rhythm, no murmurs Lungs: Clear to auscultation, no wheezes, rales, or rhonchi Abdomen: Soft, nondistended, nontender, and no masses palpable, bowel sounds present and normal, no guarding or rigidity. Extremities: No clubbing, cyanosis, or edema, radial pulse +2/4, capillary refill <2sec. Skin: abcess present extending from the midline of the anterior aspect of his L thigh wrapping around medial to the posterior aspect, line has been drawn to delineate spread and redness has decreased from the initial margins, abscess is hard and red without fluculants with about 1.5cm incision at the epicenter. Neurologic: Cranial nerves II through XII grossly intact, no focal deficits, strength within normal limits in all extremities Psych: Cooperative with exam, good eye contact, cognitive function intact, judgment good insight good, speech clear, thought process logical, and goal directed - Labs 04/28/17 04:55 04/28/17 04:55 Diabetes panel 04/28/17 Range/Units 04:55 Sodium 136 (136-145) mEq/L Potassium 4.0 (3.5-4.5) mEq/L Chloride 103 (98-109) mEq/L Carbon Dioxide 25 (19-29) mEq/L BUN 10 (8-26) mg/dL Creatinine 0.78 (0.72-1.25) mg/dL Glucose 176 H (70-99) mg/dL Calcium 10.0 (8.6-10.8) mg/dL Calcium panel 04/28/17 Range/Units 04:55 Calcium 10.0 (8.6-10.8) mg/dL Pituitary panel 04/28/17 Range/Units 04:55 Sodium 136 (136-145) mEq/L Potassium 4.0 (3.5-4.5) mEq/L Chloride 103 (98-109) mEq/L Carbon Dioxide 25 (19-29) mEq/L BUN 10 (8-26) mg/dL Creatinine 0.78 (0.72-1.25) mg/dL Glucose 176 H (70-99) mg/dL Calcium 10.0 (8.6-10.8) mg/dL Adrenal panel 04/28/17 Range/Units 04:55 Sodium 136 (136-145) mEq/L Potassium 4.0 (3.5-4.5) mEq/L Chloride 103 (98-109) mEq/L Carbon Dioxide 25 (19-29) mEq/L BUN 10 (8-26) mg/dL Creatinine 0.78 (0.72-1.25) mg/dL Glucose 176 H (70-99) mg/dL Calcium 10.0 (8.6-10.8) mg/dL Consult Discharge Plan - Plan Referrals: Leona Calderón MD [Primary Care Provider] - Prescriptions: Sulfamethoxazole/Trimeth DS [Bactrim DS] 1 each PO BID #20 tablet <Gurinder Causey - Last Filed: 04/28/17 15:30> Date of Encounter: 04/28/17 Objective Vital Signs - Last 8 Hours Temp Pulse Resp BP Pulse Ox 04/28/17 14:39 98.0 F 103 18 157/92 96 04/28/17 10:28 98.2 F 94 18 152/87 97 04/28/17 07:33 98.2 F 88 17 136/78 97 Intake and Output 04/27/17 04/28/17 04/28/17 23:59 07:59 15:59 Intake Total 540 / 540 300 / 300 Output Total 350 / 350 400 / 400 525 / 525 Balance 190 / 190 -400 / -400 -225 / -225 Intake: IV Fluids 300 / 300 300 / 300 Zyvox Premix 600mg/300mL 600 mg 300 / 300 300 / 300 In 300 ml @ 150 mls/hr IVPB Q12HR [facility]UL[facility] Rx#:[id number] Oral 240 / 240 0 / 0 Output: Urine 350 / 350 400 / 400 525 / 525 Other: Meal Dinner Percent of Meal Consumed 100% # Voids 1 Weight 146.964 kg Blood Glucose* 222 181 197 Patient Weight 04/28/17 23:59 Weight 146.964 kg - Labs 04/28/17 04:55 04/28/17 04:55 Diabetes panel 04/28/17 Range/Units 04:55 Sodium 136 (136-145) mEq/L Potassium 4.0 (3.5-4.5) mEq/L Chloride 103 (98-109) mEq/L Carbon Dioxide 25 (19-29) mEq/L BUN 10 (8-26) mg/dL Creatinine 0.78 (0.72-1.25) mg/dL Glucose 176 H (70-99) mg/dL Calcium 10.0 (8.6-10.8) mg/dL Calcium panel 04/28/17 Range/Units 04:55 Calcium 10.0 (8.6-10.8) mg/dL Pituitary panel 04/28/17 Range/Units 04:55 Sodium 136 (136-145) mEq/L Potassium 4.0 (3.5-4.5) mEq/L Chloride 103 (98-109) mEq/L Carbon Dioxide 25 (19-29) mEq/L BUN 10 (8-26) mg/dL Creatinine 0.78 (0.72-1.25) mg/dL Glucose 176 H (70-99) mg/dL Calcium 10.0 (8.6-10.8) mg/dL Adrenal panel 04/28/17 Range/Units 04:55 Sodium 136 (136-145) mEq/L Potassium 4.0 (3.5-4.5) mEq/L Chloride 103 (98-109) mEq/L Carbon Dioxide 25 (19-29) mEq/L BUN 10 (8-26) mg/dL Creatinine 0.78 (0.72-1.25) mg/dL Glucose 176 H (70-99) mg/dL Calcium 10.0 (8.6-10.8) mg/dL - Attending Attestation I examined this patient and my medical decision-making was reviewed with the Resident Physician. I agree with the documented findings, disposition and treatment plan as described except to the extent set forth below. The patient seen and evaluated with rectal morning rounds. The area of erythema on the proximal left thigh is somewhat smaller. This does not appear to be fluctuant at this point. We will continue to monitor closely for any signs of well-developed abscess Gurinder Causey MD FACS
[2017-04-28] MEDS: Ibuprofen 800 MG TABLET PO PRN (10:49)
[2017-04-28 14:41] VITALS: BP 157/92
--- NOTE | 2017-04-28 14:53 | Discharge Summary ---
Date of Encounter: 04/28/17 Time of Encounter: 04:00 - Discharge Diagnosis (1) Cellulitis Priority: Primary Status: Acute Qualifiers: Site of cellulitis: extremity Site of cellulitis of extremity: lower extremity Laterality: left Qualified Code(s): L03.116 - Cellulitis of left lower limb (2) Sepsis Priority: Primary Status: Resolved Qualifiers: Sepsis type: sepsis due to unspecified organism Qualified Code(s): A41.9 - Sepsis, unspecified organism (3) Diabetes type 2, uncontrolled Priority: Secondary Status: Acute Qualifiers: Diabetes mellitus complication status: with hyperglycemia Diabetes mellitus fci insulin use: unspecified superintendent marine oil terminal insulin use status Qualified Code(s): E11.65 - Type 2 diabetes mellitus with hyperglycemia - Discharge Medications Prescriptions: Sulfamethoxazole/Trimeth DS [Bactrim DS] 1 each PO BID #20 tablet Home Medications: Buprenorphine HCl/Naloxone HCl [Suboxone 8 mg-2 mg Sl Film] 1.5 each SL DAILY [History] Ibuprofen [Motrin] 800 mg PO Q6H PRN 04/25/17 [History] Sulfamethoxazole/Trimeth DS [Bactrim DS] 1 each PO BID #20 tablet 04/28/17 [Rx] Allergies/Adverse Reactions: 3 Allergy/AdvReac Type Severity Reaction Status Date / Time amphotericin B Allergy Anaphylaxis Verified 04/25/17 17:23 clindamycin Allergy Rash Verified 06/06/16 19:10 vancomycin Allergy Rash Verified 06/06/16 19:10 Procedures/tests Complete & Pending: Procedures Performed prior 72 hours Category Date Time Status US extremity nonvascular LT [US] Stat Exams 04/26/17 10:30 Completed Date of admission: 04/25/17 20:36 Primary care physician: Leona Calderón Consults: 04/25/17 20:46 Consult to Surgery [CONS] Routine Consulting Provider: [facility] Reason for Consult: abscess Call Completed: Yes - Patient Status Disposition: Home Health Service - Discharge Instructions Hospital course: Patient is a 26 year old male with past medical history significant for opiate addiction (on Suboxone), morbid obesity and uncontrolled diabetes who presented to the ER on 04/25/17 with acute left medial thigh abscess and cellulitis. Patient stated that he noticed his inner thigh was red and painful approximately 2 days prior to admission. Patient does have a history of recurrent cellulitis around his inner thighs. 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 He stated that he would often have a folliculitis that progress into an abscess. During patients hospital stay, he was treated with IV linezolid. As a result, patients erythema decreased and receded from marked borders. Patients pain also improved. Patient will be discharged to continue a 10 day course of Bactrim. In addition, patient was also started on metformin during his inpatient stay and will continue on discharge. Patient has been instructed to follow-up with his primary care provider. Home health care nurse will also see patient for monitoring of left lower extremity cellulitis and to help with packing/dressing changes. - Time Spent with Patient Total time spent providing and/or coordinating discharge services: - Constitutional Vitals: Temp Pulse Resp BP Pulse Ox 98.0 F 103 18 157/92 96 04/28/17 14:39 04/28/17 14:39 04/28/17 14:39 04/28/17 14:39 04/28/17 14:39 - Skin Additional comments: Erythematous region has decreased and has receded from marked orders.
== END 2017-04-28 16:50 | disposition home health service (06) | DRG 720 ==
LOC: EMEROO 16:50 → 3ANU 16:50
PROVIDERS: ADMIT Nurse Practitioner Acute Care; ATTEND Hospitalist

== ENCOUNTER 2017-12-28 00:12 | Inpatient (IN) ==
[2017-12-28] MEDS ORDERED: 0.9 % Sodium Chloride 1,000 ML IVC ONE (00:25)
[2017-12-28 00:55] LABS: Basophils % 0.4 %; Eosinophils % 0.7 %; Hematocrit 38.2 % (37.5-50.1); Hemoglobin 12.5 g/dL (12.9-16.9); Immature Granulocytes % 0.6 % (0-4); Lymphocytes # 0.5 K/mcL (0.6-4.6); Mean Corpuscular HGB Conc 32.7 g/dL (31.6-35.5); Mean Corpuscular Hemoglobin 29.1 pg (28.0-33.3); Mean Corpuscular Volume 88.8 fL (83.0-100.0); Mean Platelet Volume 8.4 fL (9.4-12.4); Monocytes # 0.2 K/mcL (0.0-1.3); Monocytes % 3.1 %; Neutrophils # 4.6 K/mcL (1.6-8.9); Platelet Count 188 K/mcL (140-400); Segmented Neutrophils % 85.2 %
[2017-12-28 01:16] LABS: BUN/Creatinine Ratio 6 (6-26); Blood Urea Nitrogen 4 mg/dL (6-20); C-Reactive Protein 30 mg/L (Less than 10); Carbon Dioxide 27 mEq/L (23-29); Chloride 96 mEq/L (98-107); Glucose 135 mg/dL (70-105); Osmolality,Calculated 269 (280-300); Potassium 3.5 mEq/L (3.5-5.1); Sodium 130 mEq/L (136-145); eGFR For African Americans > 60 (> 60); eGFR For Non-African Americans > 60 (> 60)
--- NOTE | 2017-12-28 01:16 | Emergency Department Note ---
Disposition Clinical Impression: Cellulitis Qualifiers: Site of cellulitis: extremity Site of cellulitis of extremity: upper extremity Laterality: left Qualified Code(s): L03.114 - Cellulitis of left upper limb Disposition: Admitted As Inpatient Condition: Fair Time of Disposition: 02:36 Skin/Abscess/FB HPI Chief complaint: ED Skin/Abscess/Foreign Body Stated complaint: left arm abscess Time Seen by Provider: 12/28/17 00:19 Source: patient Mode of arrival: ambulatory Limitations: no limitations Nursing Notes Reviewed: Yes Vital Signs Reviewed: Yes HPI Narrative: Patient presents to the ED with the chief complaint of infection to his left arm. Patient states that he was lifting some steel about 2 weeks ago and it pinched his arm just below his left antecubital fossa. States that there is some induration. There that he thought that that was just from the injury. States over the preceding week he has developed swelling and redness and an ulcerated lesion there. States that yesterday he started developing fevers up to 102. States he has felt very hot and sweaty and fatigued. 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 Home Medications Medication Instructions Recorded Confirmed Buprenorphine HCl/Naloxone HCl 1.5 each SL DAILY 04/25/17 12/28/17 [Suboxone 8 mg-2 mg Sl Film] Allergies Allergy/AdvReac Type Severity Reaction Status Date / Time amphotericin B Allergy Anaphylaxis Verified 04/25/17 17:23 clindamycin Allergy Rash Verified 06/06/16 19:10 vancomycin Allergy Rash Verified 06/06/16 19:10 Review of Systems: As reviewed in the HPI. All other systems reviewed are negative or normal. Past Medical History - Past Medical History Attestation: Yes The following information was validated with the patient. Source: patient Medical history: Reports: cancer, DVT Surgical history: Reports: no surgical history Psychiatric history: Reports: no psych history - Social History Smoking Status: Current every day smoker Smokeless Tobacco Status: No Alcohol use: Reports: none Drug use: Reports: none Physical Exam - General Limitations: no limitations General appearance: alert, in no apparent distress - Head Head exam: atraumatic, normocephalic, normal inspection - Eye Eye exam: Present: normal appearance, PERRL, EOMI Course Vital Signs Temperature 100.9 F H 12/28/17 00:15 Pulse Rate 130 05/31/18 00:15 Respiratory Rate 16 12/28/17 00:15 Blood Pressure 121/64 12/28/17 00:15 O2 Sat by Pulse Oximetry 95 12/28/17 00:15 Temperature 100.0 F H 12/28/17 03:50 Pulse Rate 125 12/28/17 03:50 Respiratory Rate 18 12/28/17 03:50 Blood Pressure 134/72 12/28/17 03:50 O2 Sat by Pulse Oximetry 95 12/28/17 03:50 Oxygen Delivery Oxygen Delivery Room Air Skin/Abscess/Foreign Body - Lab Data Result diagrams: 12/28/17 00:23 12/28/17 00:23 Lab Results 12/28/17 12/28/17 12/28/17 Range/Units 00:23 00:23 00:23 WBC 5.4 (4.3-11.1) K/mcL RBC 4.30 (4.19-5.50) M/mcL Hgb 12.5 L (12.9-16.9) g/dL Hct 38.2 (37.5-50.1) % MCV 88.8 (83.0-100.0) fL MCH 29.1 (28.0-33.3) pg MCHC 32.7 (31.6-35.5) g/dL RDW 12.0 (11.5-14.5) % Plt Count 188 (140-400) K/mcL MPV 8.4 L (9.4-12.4) fL Immature Gran % 0.6 (0-4) % Seg Neutrophils % 85.2 % Lymphocytes % 10.0 % Monocytes % 3.1 % Eosinophils % 0.7 % Basophils % 0.4 % Neutrophils # 4.6 (1.6-8.9) K/mcL Lymphocytes # 0.5 L (0.6-4.6) K/mcL Monocytes # 0.2 (0.0-1.3) K/mcL Eosinophils # 0.0 (0.0-0.6) K/mcL Basophils # 0.0 (0.0-0.2) K/mcL Sodium 130 L (136-145) mEq/L Potassium 3.5 (3.5-5.1) mEq/L Chloride 96 L (98-107) mEq/L Carbon Dioxide 27 (23-29) mEq/L BUN 4 L (6-20) mg/dL Creatinine 0.71 (0.70-1.30) mg/dL Est GFR ( Amer) > 60 (> 60) Est GFR (Non-Af Amer) > 60 (> 60) BUN/Creatinine Ratio 6 (6-26) Glucose 135 H (70-105) mg/dL Calculated Osmolality 269 L (280-300) Lactic Acid 2.1 (0.5-2.2) mmol/L Calcium 9.0 (8.6-10.3) mg/dL C-Reactive Protein 30 H (Less than 10) mg/L Urine Color (Yellow) Urine Clarity (Clear) Urine pH (5.0-8.0) pH Units Ur Specific [place] (1.010-1.025) Urine Protein (Neg-Trace) mg/dL Urine Glucose (UA) (Normal) mg/dL Urine Ketones (Negative) mg/dL Urine Blood (Negative) Urine Nitrite (Negative) Urine Bilirubin (Negative) Urine Urobilinogen (Normal) mg/dL Ur Leukocyte Esterase (Negative) Urine Microscopic RBC (0-3) per hpf Urine Microscopic WBC (0-3) per hpf Ur Squamous Epith Cells (None-Few) per lpf Urine Bacteria (None-Few) per hpf Hyaline Casts (None-Few) per lpf Ur Culture Indicated? (NO) 12/28/17 Range/Units 02:00 WBC (4.3-11.1) K/mcL RBC (4.19-5.50) M/mcL Hgb (12.9-16.9) g/dL Hct (37.5-50.1) % MCV (83.0-100.0) fL MCH (28.0-33.3) pg MCHC (31.6-35.5) g/dL RDW (11.5-14.5) % Plt Count (140-400) K/mcL MPV (9.4-12.4) fL Immature Gran % (0-4) % Seg Neutrophils % % Lymphocytes % % Monocytes % % Eosinophils % % Basophils % % Neutrophils # (1.6-8.9) K/mcL Lymphocytes # (0.6-4.6) K/mcL Monocytes # (0.0-1.3) K/mcL Eosinophils # (0.0-0.6) K/mcL Basophils # (0.0-0.2) K/mcL Sodium (136-145) mEq/L Potassium (3.5-5.1) mEq/L Chloride (98-107) mEq/L Carbon Dioxide (23-29) mEq/L BUN (6-20) mg/dL Creatinine (0.70-1.30) mg/dL Est GFR ( Amer) (> 60) Est GFR (Non-Af Amer) (> 60) BUN/Creatinine Ratio (6-26) Glucose (70-105) mg/dL Calculated Osmolality (280-300) Lactic Acid (0.5-2.2) mmol/L Calcium (8.6-10.3) mg/dL C-Reactive Protein (Less than 10) mg/L Urine Color Yellow (Yellow) Urine Clarity Clear (Clear) Urine pH 6.5 (5.0-8.0) pH Units Ur Specific [place] 1.022 (1.010-1.025) Urine Protein Negative (Neg-Trace) mg/dL Urine Glucose (UA) Normal (Normal) mg/dL Urine Ketones Negative (Negative) mg/dL Urine Blood Negative (Negative) Urine Nitrite Negative (Negative) Urine Bilirubin Negative (Negative) Urine Urobilinogen 2.0 H (Normal) mg/dL Ur Leukocyte Esterase Trace H (Negative) Urine Microscopic RBC 0-3 (0-3) per hpf Urine Microscopic WBC 5-15 H (0-3) per hpf Ur Squamous Epith Cells Many H (None-Few) per lpf Urine Bacteria None Seen (None-Few) per hpf Hyaline Casts None Seen (None-Few) per lpf Ur Culture Indicated? NO. A (NO) Attestation Statement - Attestation Attestation: I examined this patient and my medical decision-making was reviewed with the Resident Physician. I agree with the documented findings, disposition and treatment plan as described except to the extent set forth below. 27-year-old male presents ED because of left arm pain and fever. Several days ago he has arm pinched and with local bruising and abrasions of the skin. He subsequently developed Erythema that is extended across the arm. He denies any high fevers or generalized weakness. Denies focal joint pain. No vomiting. No chest pain or dyspnea. Patient is tachycardic and appears uncomfortable. Febrile Oropharynx clear mucous membranes membranes dry. Neck supple. Chest is clear to auscultation bilaterally. Cardiac exam tachycardic, regular. Abdomen soft, nondistended and nontender. Left upper extremity with moderate erythema and warmth with asymmetric swelling of the left arm compared to the right. No severe pain with passive flexion or extension of the wrist or fingers. Imaging of the extremity is negative for any suggestion of necrotizing fasciitis. He is given IV antibiotics will be admitted for further treatment.
[2017-12-28] MEDS ORDERED: Piperacillin/Tazobactam 3.375 GM in 0.9 % Sodium Chloride Mini Bag 100 ML IVPB ONE (01:22)
[2017-12-28] MEDS ORDERED: 0.9 % Sodium Chloride 1,000 ML ONE (01:43)
[2017-12-28] MEDS: 0.9 % Sodium Chloride 1,000 ML IVC SCH ×2 (01:44→02:33)
[2017-12-28 02:16] LABS: Bilirubin,Urine Negative (Negative); Blood,Urine Negative (Negative); Clarity,Urine Clear (Clear); Color,Urine Yellow (Yellow); Glucose,Urine (UA) Normal (Normal); Ketones,Urine Negative (Negative); Leukocyte Esterase,Urine Trace (Negative); Nitrite,Urine Negative (Negative); PH,Urine 6.5 pH Units (5.0-8.0); Protein,Urine Negative (Neg-Trace); Specific Gravity,Urine 1.022 (1.010-1.025)
[2017-12-28 02:18] LABS: Bacteria,Urine None Seen per hpf (None-Few); Hyaline Casts,Urine None Seen per lpf (None-Few); RBC,Urine 0-3 per hpf (0-3); Squamous Epithelial Cell,Urine Many per lpf (None-Few)
[2017-12-28] MEDS ORDERED: Naloxone 0.4 MG/ML INJ IVP PRN (03:01)
--- NOTE | 2017-12-28 03:08 | Internal Med History&Physical ---
Date of Encounter: 12/28/17 Time of Encounter: 03:06 Internal Medicine - H&P: HPI Chief complaint: left forearm cellulitis History of present illness: Mr. Ansari is a 27 year old male who presents with left forearm cellulitis associated with prior trauma. Approximately 2 weeks ago he was carrying metal poles in his arms when he tripped and fell with trauma to the left forearm. It immediately left a bruise and swelling which did not improve. It worsened to include the development of local pain, spreading erythema and warmth. He developed temperature of 103 today. Given his persistent and progressive symptoms to set come into the ER for evaluation Of note he has a history of pain medicine abuse and is currently on Suboxone 8 mg twice a day per self report. He reports being clean of opiates for the last 2 years. In addition he also reports 6 months history of methamphetamine usage last smoked 4 days ago. Denies IVDU He is a history of AML H 16 treated at [facility] and is in remission He reports allergy to vancomycin causing red man syndrome, clindamycin causing rash, amphotericin causing his heart to stop XR/XR chest 1V portable IMPRESSION: Negative portable chest. CT/CT UE LT w con IMPRESSION: Soft tissue swelling without focal abscess. Past Med Surg Social Fam HX - Past Medical History Medical history: cancer, DVT Additional medical history: leukemia Psychiatric history: no psych history - Past Surgical History Surgical History: no surgical history Additional surgical history: Surgery on mastoid bone. - Social History Smoking Status: Current every day smoker Smokeless Tobacco Status: No Alcohol use: none Drug use: none - Family History Mother Living Status: Still Living Hx Family Endocrine Disorder: Yes (DM) Father Living Status: Still Living Hx Family Cardiac Disorders: Yes Internal Medicine - H&P: Meds Buprenorphine HCl/Naloxone HCl [Suboxone 8 mg-2 mg Sl Film] 1.5 each SL DAILY [History] Ibuprofen [Motrin] 800 mg PO Q6H PRN 04/25/17 [History] Sulfamethoxazole/Trimeth DS [Bactrim DS] 1 each PO BID #20 tablet 04/28/17 [Rx] 3 Allergy/AdvReac Type Severity Reaction Status Date / Time amphotericin B Allergy Anaphylaxis Verified 04/25/17 17:23 clindamycin Allergy Rash Verified 06/06/16 19:10 vancomycin Allergy Rash Verified 06/06/16 19:10 All Systems PM: A 10-system review of systems was performed and is negative for pertinent findings except as documented above in the HPI. Review of systems: ROS 14 point review of systems reviewed as best as possible given presentation. Pertinent positive or negative as per HPI or otherwise reviewed as negative - Constitutional Vitals: Temp Pulse Resp BP Pulse Ox 101.3 F H 118 16 110/48 94 12/28/17 02:38 12/28/17 02:38 12/28/17 02:38 12/28/17 02:38 12/28/17 02:38 Exam: General - AAO x 3 Psych - Appropriate affect/speech. No agitation Eyes - OFELIA. Eye lids intact. No scleral icterus Neuro - No gross peripheral or central neuro deficits on inspection Heart - Sinus. RRR. S1 and S2 present. No added HS/murmurs appreciated. No elevated JVD appreciated. Lung - Adequate air entry b/l, No crackles/wheezes appreciated GI - Soft, non-tender. No hepatosplenomegaly/ascites. BS+ - No CVA/suprapubic tenderness or palpable bladder distension Skin - left forearm erythema and swelling along ventral aspect Internal Med - H&P Results - Labs CBC & Chem 7: 12/28/17 00:23 12/28/17 00:23 Labs: Short CBC 12/28/17 Range/Units 00:23 WBC 5.4 (4.3-11.1) K/mcL Hgb 12.5 L (12.9-16.9) g/dL Hct 38.2 (37.5-50.1) % Plt Count 188 (140-400) K/mcL Neutrophils # 4.6 (1.6-8.9) K/mcL BMP 12/28/17 00:23 Sodium 130 L Potassium 3.5 Chloride 96 L Carbon Dioxide 27 BUN 4 L Creatinine 0.71 Glucose 135 H Calcium 9.0 Urine 12/28/17 Range/Units 02:00 Urine Color Yellow (Yellow) Urine Clarity Clear (Clear) Urine pH 6.5 (5.0-8.0) pH Units Ur Specific [place] 1.022 (1.010-1.025) Urine Protein Negative (Neg-Trace) mg/dL Urine Glucose (UA) Normal (Normal) mg/dL - Impressions ITS Impressions Upper Extremity CT 12/28/17 00:49 IMPRESSION: Soft tissue swelling without focal abscess. D/ / Chalino Solomon MD / Chalino Solomon MD Interpreting Provider: Chalino Solomon MD Chest X-Ray 12/28/17 01:40 IMPRESSION: Negative portable chest. D/ / Chalino Solomon MD / Chalino Solomon MD Interpreting Provider: Chalino Solomon MD - Assessment and plan (1) Cellulitis Current Visit: Yes Status: Acute Assessment and plan: IV Unasyn, IV doxycycline IV fluids given mild hyponatremia Blood cultures pending Check A1c diabetes screen Qualifiers: Site of cellulitis: extremity Site of cellulitis of extremity: upper extremity Laterality: left Qualified Code(s): L03.114 - Cellulitis of left upper limb (2) Opiate dependence Current Visit: Yes Status: Acute Assessment and plan: On Suboxone 8 mg twice a day per patient report Qualifiers: Substance use status: uncomplicated Qualified Code(s): F11.20 - Opioid dependence, uncomplicated - Time Spent With Patient Total time spent is greater than 50% in coordination of care (as documented) at patient's floor/unit and/or counseling patient:
[2017-12-28] MEDS ORDERED: 0.9 % Sodium Chloride 1,000 ML IVC SCH (03:15)
[2017-12-28] MEDS: Doxycycline 100 MG in 0.9 % Sodium Chloride Mini Bag 100 ML IVPB SCH ×2 (06:24→18:47)
[2017-12-28] MEDS: *HR* Enoxaparin 40 MG/0.4 ML SYRINGE SQ SCH ×2 (06:24→11:35)
[2017-12-28] MEDS: Ampicillin/Sulbactam 1,500 MG in 0.9 % Sodium Chloride Mini Bag 100 ML IVPB SCH ×3 (10:04→21:27)
--- NOTE | 2017-12-28 16:02 | Event Note ---
Date of Encounter: 12/28/17 Time of Encounter: 12:30 Pt's female rap artist at bedside. I asked pt what happened vidal his arm and he states " I don't know." Pt reported to nurse that he is on Suboxone but is last prescription from a provider from back in Jun 2017. Female rap artist at bedside states pt lanced and drained his own wound at home. Pt has not had any purulent drainage so far. Pt does report significant reduction in pain and swelling of the arm since his admission. No acute changes since pt was seen after midnight. Will continue IV antibiotic for now.
[2017-12-28] MEDS: Ibuprofen 800 MG TABLET PO PRN (19:02)
[2017-12-28] MEDS: *HR* Buprenorphine HCl 8 MG TAB.SUBL SL SCH (21:16)
[2017-12-28] MEDS ORDERED: Acetaminophen IV 1,000 MG/100 ML INFUS..BTL IVPB ONE (22:10)
[2017-12-28 22:51] LABS: Amphetamine Screen,Urine Negative ng/mL (Cutoff=1000); Barbiturate Screen,Urine Negative ng/mL (Cutoff=200); Benzodiazepines Screen,Urine Negative ng/mL (Cutoff=200); Cannabinoid Screen,Urine Negative ng/mL (Cutoff = 50); Cocaine Screen,Urine Negative ng/mL (Cutoff= 300); Opiate Screen,Urine Negative ng/mL (Cutoff=300); Phencyclidine Screen,Urine Negative ng/mL (Cutoff=25)
[2017-12-29 02:02] LABS: Hematocrit 37.6 % (37.5-50.1); Hemoglobin 12.4 g/dL (12.9-16.9); Lymphocytes # 0.4 K/mcL (0.6-4.6); Mean Corpuscular Hemoglobin 29.2 pg (28.0-33.3); Mean Corpuscular Volume 88.5 fL (83.0-100.0); Mean Platelet Volume 8.8 fL (9.4-12.4); Platelet Count 155 K/mcL (140-400); Red Blood Count 4.25 M/mcL (4.19-5.50); Red Cell Distribution Width 12.5 % (11.5-14.5)
[2017-12-29 02:21] LABS: BUN/Creatinine Ratio 15 (6-26); Blood Urea Nitrogen 11 mg/dL (6-20); Calcium 7.9 mg/dL (8.6-10.3); Carbon Dioxide 24 mEq/L (23-29); Chloride 100 mEq/L (98-107); Glucose 121 mg/dL (70-105); Osmolality,Calculated 271 (280-300); Potassium 3.6 mEq/L (3.5-5.1); Sodium 130 mEq/L (136-145); eGFR For African Americans > 60 (> 60); eGFR For Non-African Americans > 60 (> 60)
[2017-12-29 03:13] LABS: Monocytes # 0.1 K/mcL (0.0-1.3); Neutrophils # 5.5 K/mcL (1.6-8.9); Platelet Estimate Normal (Normal)
[2017-12-29] MEDS: Ampicillin/Sulbactam 1,500 MG in 0.9 % Sodium Chloride Mini Bag 100 ML IVPB SCH ×4 (03:37→19:55)
[2017-12-29] MEDS: *HR* Enoxaparin 40 MG/0.4 ML SYRINGE SQ SCH (06:04)
[2017-12-29] MEDS: Doxycycline 100 MG in 0.9 % Sodium Chloride Mini Bag 100 ML IVPB SCH ×2 (06:05→17:30)
[2017-12-29] MEDS: *HR* Buprenorphine HCl 8 MG TAB.SUBL SL SCH ×2 (08:06→19:55)
[2017-12-29 12:02] LABS: Estimated Average Glucose 134 mg/dl; Hemoglobin A1C 6.3 %
[2017-12-29] MEDS ORDERED: *HR* Promethazine 25 MG/ML VIAL IVP ONE (12:13)
--- NOTE | 2017-12-29 14:02 | Discharge Summary ---
Orders not resulted at time of discharge: Pending orders 12/28/17 00:43 Culture,Blood [BC] Stat 12/28/17 04:34 Culture,Blood,Additional [BC] Routine Date of Encounter: 12/29/17 - Discharge Diagnosis (1) Cellulitis Priority: Primary Status: Acute Qualifiers: Site of cellulitis: extremity Site of cellulitis of extremity: upper extremity Laterality: left Qualified Code(s): L03.114 - Cellulitis of left upper limb (2) Opiate dependence Priority: Secondary Status: Chronic Qualifiers: Substance use status: uncomplicated Qualified Code(s): F11.20 - Opioid dependence, uncomplicated (3) Pre-diabetes Priority: Secondary Status: Acute (4) Obesity Priority: Secondary Status: Chronic Qualifiers: Obesity type: unspecified obesity type Obesity classification: adult class 2 (BMI 35 - 39.9) Serious obesity comorbidity presence: without serious comorbidity Body mass index: BMI 36.0-36.9 Qualified Code(s): E66.9 - Obesity, unspecified; Z68.36 - Body mass index (BMI) 36.0-36.9, adult (5) Smoking addiction Priority: Secondary Status: Chronic Hospital course: Mr. Ansari is a 27 year old male - Time Spent with Patient Total time spent providing and/or coordinating discharge services: - Discharge Medications Home Medications: No Known Home Drugs 12/28/17 [History] Allergies/Adverse Reactions: 3 Allergy/AdvReac Type Severity Reaction Status Date / Time amphotericin B Allergy Anaphylaxis Verified 04/25/17 17:23 clindamycin Allergy Rash Verified 06/06/16 19:10 vancomycin Allergy Rash Verified 06/06/16 19:10 Date of admission: 12/28/17 03:07 Primary care physician: Leona Calderón - Constitutional Vitals: Temp Pulse Resp BP Pulse Ox 98.5 F 121 16 118/64 99 12/29/17 09:53 12/29/17 09:53 12/29/17 09:53 12/29/17 09:53 12/29/17 09:53 General appearance: Present: disheveled, A&O X 3, no acute distress, obese - Head Head exam: Present: atraumatic, normocephalic - Eye Eye exam: Present: PERRL, conjuntiva pink, sclera anicteric Pupils: Present: PERRL - Neck Neck exam general surgery: Present: supple, trachea midline. Absent: lymphadenopathy - Respiratory Respiratory exam: Present: CTAB. Absent: accessory muscle use, rales, rhonchi, wheezes - Cardiovascular Cardiovascular exam: Present: RRR, +S1, +S2. Absent: diastolic murmur, gallop, rubs, systolic murmur - GI/Abdominal GI/Abdominal exam: Present: normal bowel sounds, soft, no peritoneal signs. Absent: distended, tenderness - Extremities Exam Additional comments: Left arm with ~2X2cm abscess with very minimal flutucancy, punctum visible no visible drainage - Neurological Exam Neurological exam: Present: alert, CN II-XII intact, oriented X3, no focal deficits. Absent: pronater drift, facial droop, speech deficit - Skin Skin exam: Present: dry, intact - Patient Status Condition: Fair - Discharge Instructions Follow Up With: Leona Calderón MD [Primary Care Provider] -
--- NOTE | 2017-12-29 14:10 | Internal Med Progress Note ---
Date of Encounter: 12/29/17 Time of Encounter: 14:05 - Assessment and plan (1) Sepsis Current Visit: Yes Status: Acute Assessment and plan: Patient met sepsis criteria with fever Tmax 103, he is still tachycardic, last febrile episode less than 24 hrs ago Source is his Left arm cellulitis with abscess Blood culture is negative We will consult surgery for incision and drainage of his L arm abscess L arm CT scan noted IVF hydration , will give 1L STAT Continue unasyn and docycycline till culture reprts, patient reports allergies to vanco and clinda Qualifiers: Sepsis type: sepsis due to unspecified organism Qualified Code(s): A41.9 - Sepsis, unspecified organism (2) Cellulitis Current Visit: Yes Status: Acute Assessment and plan: As above Qualifiers: Site of cellulitis: extremity Site of cellulitis of extremity: upper extremity Laterality: left Qualified Code(s): L03.114 - Cellulitis of left upper limb (3) Opiate dependence Current Visit: Yes Status: Chronic Assessment and plan: On Suboxone 8 mg twice a day per patient report, continue same Qualifiers: Substance use status: uncomplicated Qualified Code(s): F11.20 - Opioid dependence, uncomplicated (4) Pre-diabetes Current Visit: Yes Status: Chronic Assessment and plan: A1C 6.4 not on any meds per chart Will start on Metformin FS ACHS Change diet to diabetic (5) Obesity Current Visit: Yes Status: Chronic Assessment and plan: encourage lifestyle modification Qualifiers: Obesity type: unspecified obesity type Obesity classification: adult class 2 (BMI 35 - 39.9) Serious obesity comorbidity presence: without serious comorbidity Body mass index: BMI 36.0-36.9 Qualified Code(s): E66.9 - Obesity, unspecified; Z68.36 - Body mass index (BMI) 36.0-36.9, adult (6) Smoking addiction Current Visit: Yes Status: Chronic Assessment and plan: encouraged cessation - Time Spent With Patient Total time spent is greater than 50% in coordination of care (as documented) at patient's floor/unit and/or counseling patient: - Subjective Interval history: Seen and examined at bedside with spouse They both report improvement in L arm swelling No new complains Last fever episode <24 hrs ago still tachycardic to 120s - Constitutional Vitals: Temp Pulse Resp BP Pulse Ox 98.5 F 121 16 118/64 99 06/01/18 09:53 12/29/17 09:53 12/29/17 09:53 12/29/17 09:53 12/29/17 09:53 General appearance: Present: disheveled, A&O X 3, no acute distress, obese - Head Head exam: Present: atraumatic, normocephalic - Eye Eye exam: Present: PERRL, conjuntiva pink, sclera anicteric Pupils: Present: PERRL - Neck Neck exam general surgery: Present: supple, trachea midline. Absent: lymphadenopathy - Respiratory Respiratory exam: Present: CTAB. Absent: accessory muscle use, rales, rhonchi, wheezes - Cardiovascular Cardiovascular exam: Present: RRR, +S1, +S2. Absent: diastolic murmur, gallop, rubs, systolic murmur - GI/Abdominal GI/Abdominal exam: Present: normal bowel sounds, soft, no peritoneal signs. Absent: distended, tenderness - Extremities Exam Additional comments: L arm with ~2X2cm abscess, mild fluctuancy with punctum, not actively draining - Neurological Exam Neurological exam: Present: alert, CN II-XII intact, oriented X3, no focal deficits. Absent: pronater drift, facial droop, speech deficit - Skin Skin exam: Present: dry, intact Internal Medicine: Result - Labs CBC & Chem 7: 12/29/17 01:27 12/29/17 01:27 Labs: Short CBC 12/29/17 Range/Units 01:27 WBC 6.1 (4.3-11.1) K/mcL Hgb 12.4 L (12.9-16.9) g/dL Hct 37.6 (37.5-50.1) % Plt Count 155 (140-400) K/mcL Neutrophils # 5.5 (1.6-8.9) K/mcL BMP 12/29/17 01:27 Sodium 130 L Potassium 3.6 Chloride 100 Carbon Dioxide 24 BUN 11 Creatinine 0.73 Glucose 121 H Calcium 7.9 L Consult Discharge Plan - Plan Referrals: Leona Calderón MD [Primary Care Provider] -
[2017-12-29] MEDS ORDERED: 0.9 % Sodium Chloride 1,000 ML IVC ONE (14:14)
[2017-12-29] MEDS ORDERED: Lidocaine -MPF 1% 2 ML VIAL INFILT STA (15:12)
[2017-12-29] MEDS ORDERED: Lidocaine -MPF 1% 5 ML AMPUL ONE (15:13)
[2017-12-29] MEDS ORDERED: Lidocaine 1% 20 ML MDV INFILT ONE (15:14)
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
[2017-12-29] MEDS: *HR* Metformin 500 MG TABLET PO SCH ×2 (17:29→17:47)
[2017-12-29] MEDS ORDERED: Ondansetron 4 MG/2 ML VIAL IVP PRN (17:58)
[2017-12-29] MEDS: Ibuprofen 800 MG TABLET PO PRN (18:27)
[2017-12-30] MEDS: Ampicillin/Sulbactam 1,500 MG in 0.9 % Sodium Chloride Mini Bag 100 ML IVPB SCH (04:29)
[2017-12-30] MEDS: Doxycycline 100 MG in 0.9 % Sodium Chloride Mini Bag 100 ML IVPB SCH (06:29)
[2017-12-30] MEDS: *HR* Enoxaparin 40 MG/0.4 ML SYRINGE SQ SCH ×2 (06:29→06:32)
[2017-12-30 07:19] VITALS: BP 107/63
[2017-12-30] MEDS: *HR* Metformin 500 MG TABLET PO SCH (07:49)
[2017-12-30] MEDS: *HR* Buprenorphine HCl 8 MG TAB.SUBL SL SCH (07:50)
--- NOTE | 2017-12-30 13:31 | Event Note ---
Date of Encounter: 12/30/17 Time of Encounter: 13:31
--- NOTE | 2017-12-30 14:14 | Discharge Summary ---
Orders not resulted at time of discharge: Pending orders 12/28/17 00:43 Culture,Blood [BC] Stat 12/28/17 04:34 Culture,Blood,Additional [BC] Routine Date of Encounter: 12/30/17 Time of Encounter: 14:13 - Discharge Diagnosis (1) Sepsis Priority: Primary Status: Acute Qualifiers: Sepsis type: sepsis due to unspecified organism Qualified Code(s): A41.9 - Sepsis, unspecified organism (2) Cellulitis Priority: Primary Status: Acute Qualifiers: Site of cellulitis: extremity Site of cellulitis of extremity: upper extremity Laterality: left Qualified Code(s): L03.114 - Cellulitis of left upper limb (3) Opiate dependence Priority: Secondary Status: Chronic Qualifiers: Substance use status: uncomplicated Qualified Code(s): F11.20 - Opioid dependence, uncomplicated (4) Pre-diabetes Priority: Secondary Status: Chronic (5) Obesity Priority: Secondary Status: Chronic Qualifiers: Obesity type: unspecified obesity type Obesity classification: adult class 2 (BMI 35 - 39.9) Serious obesity comorbidity presence: without serious comorbidity Body mass index: BMI 36.0-36.9 Qualified Code(s): E66.9 - Obesity, unspecified; Z68.36 - Body mass index (BMI) 36.0-36.9, adult (6) Smoking addiction Priority: Secondary Status: Chronic Hospital course: Mr. Ansari is a 27 year old male Patient was not evaluated He had left AMA prior to my eval - Time Spent with Patient Total time spent providing and/or coordinating discharge services: - Discharge Medications Home Medications: No Known Home Drugs 12/28/17 [History] Allergies/Adverse Reactions: 3 Allergy/AdvReac Type Severity Reaction Status Date / Time amphotericin B Allergy Anaphylaxis Verified 04/25/17 17:23 clindamycin Allergy Rash Verified 06/06/16 19:10 vancomycin Allergy Rash Verified 06/06/16 19:10 Date of admission: 12/28/17 03:07 Primary care physician: Leona Calderón Consults: 12/29/17 14:07 Consult to Surgery [CONS] Routine Consulting Provider: [facility] Reason for Consult: Incision and drainage of Left arm abscess Call Completed: Yes Discharging clinician: Yohannes Spears Anticipated date of discharge: 12/30/17 - Constitutional Vitals: Temp Pulse Resp BP Pulse Ox 98 F 79 16 107/63 99 12/30/17 06:40 12/30/17 06:40 12/30/17 06:40 12/30/17 06:40 12/30/17 06:40 General appearance: Present: disheveled, A&O X 3, no acute distress, obese - Patient Status Disposition: Left Against Medical Advice Condition: Fair Functional capacity at discharge: independent ambulation - Discharge Instructions Follow Up With: Leona Calderón MD [Primary Care Provider] -
--- NOTE | 2018-01-01 16:23 | Electrocardiograph Report ---
[address] [address] Test Date: 2017-12-29 Pat Name: Constantine Ansari Department: 114 Room: [facility] Gender: M [employer] Supervisor: : [id number] Requested By: Ranjit Lema Order Number: [id number] Reading MD: Ranjeet Franklin Measurements Intervals [place] Rate: 111 P: 66 MD: 134 QRS: 73 QRSD: 92 T: 36 QT: 306 QTc: 371 Interpretive Statements SINUS TACHYCARDIA Electronically Signed On 01-01-2018 16:22:08 EDT by Ranjeet Franklin
== END 2017-12-30 10:30 | disposition left against medical advice (07) | DRG 720 ==
LOC: EMEROO 00:12 → 3NENU 00:12
PROVIDERS: ADMIT Internal Medicine; ATTEND Internal Medicine

== ENCOUNTER 2019-11-10 01:24 | Inpatient (IN) ==
[2019-11-10] MEDS ORDERED: *HR* Promethazine 25 MG/ML VIAL IVP ONE (02:06)
[2019-11-10] MEDS ORDERED: 0.9 % Sodium Chloride 1,000 ML IVC ONE ×2 (02:09→05:55)
[2019-11-10] MEDS: 0.9 % Sodium Chloride 1,000 ML IVC SCH ×3 (02:13→02:20)
[2019-11-10 02:16] LABS: VBG HCO3 24 mEq/L (21-27); VBG PCO2 43 mmHg (41-51); VBG PH 7.35 pH Units (7.32-7.42); VBG PO2 76 mmHg (25-50)
[2019-11-10 02:26] LABS: Basophils % 0.3 %; Eosinophils % 0.1 %; Hematocrit 38.3 % (37.5-50.1); Hemoglobin 12.7 g/dL (12.9-16.9); Immature Granulocytes % 0.5 % (0-4); Lymphocytes # 0.7 K/mcL (0.6-4.6); Lymphocytes % 6.3 %; Mean Corpuscular HGB Conc 33.2 g/dL (31.6-35.5); Mean Corpuscular Hemoglobin 29.8 pg (28.0-33.3); Mean Corpuscular Volume 89.9 fL (83.0-100.0); Monocytes # 0.7 K/mcL (0.0-1.3); Platelet Count 161 K/mcL (140-400); Red Blood Count 4.26 M/mcL (4.19-5.50); Red Cell Distribution Width 12.8 % (11.5-14.5); Segmented Neutrophils % 86.8 %; White Blood Count 11.5 K/mcL (4.3-11.1)
[2019-11-10 02:43] LABS: Platelet Estimate Normal (Normal)
[2019-11-10] MEDS ORDERED: cefTRIAXone 1,000 MG in Water for inj. (sterile) 10 ML IVP ONE (02:45)
[2019-11-10] MEDS ORDERED: Azithromycin 500 MG in 0.9 % Sodium Chloride 250 ML IVPB ONE (02:45)
[2019-11-10 03:18] LABS: INR 1.6; Prothrombin Time 17.7 Seconds (9.4-12.1)
[2019-11-10 03:20] LABS: Activated Partial Thrombo Time 30.8 Seconds (26.0-36.0)
[2019-11-10 03:25] LABS: Alanine Aminotransferase 17 Units/L (7-52); Albumin 3.3 g/dL (3.5-5.7); Albumin/Globulin Ratio 1.1 (1.1-2.2); Alkaline Phosphatase 98 Units/L (34-104); Aspartate Amino Transferase 24 Units/L (13-39); BUN/Creatinine Ratio 12 (6-26); Bilirubin,Direct 1.1 mg/dL (0.0-0.2); Bilirubin,Indirect 0.6 mg/dL (0.0-1.0); Bilirubin,Total 1.7 mg/dL (0.3-1.0); Blood Urea Nitrogen 35 mg/dL (6-20); C-Reactive Protein > 300 mg/L (Less than 10); Calcium 9.5 mg/dL (8.6-10.3); Carbon Dioxide 21 mEq/L (23-29); Chloride 85 mEq/L (98-107); Ferritin 686 ng/mL (20-250); Globulin 3.1 g/dL (2.4-3.5); Glucose 182 mg/dL (70-105); Lactate Dehydrogenase 224 Units/L (140-271); Magnesium 1.5 mg/dL (1.6-2.6); Osmolality,Calculated 267 (280-300); Phosphorous 2.7 mg/dL (2.7-4.5); Potassium 4.8 mEq/L (3.5-5.1); Sodium 122 mEq/L (136-145); Total Protein 6.4 g/dL (6.4-8.9); Troponin I < 0.03 ng/mL (< 0.04); eGFR For African Americans 31 (> 60); eGFR For Non-African Americans 25 (> 60)
[2019-11-10] MEDS ORDERED: *HR* Etomidate 20 MG/10 ML AMPUL IVP ONE ×2 (03:57→04:29)
[2019-11-10] MEDS ORDERED: 0.9 % Sodium Chloride 1,000 ML ONE (04:06)
[2019-11-10] MEDS ORDERED: Artificial Tears SOLN 15 ML BOTTLE BOTH EYES PRN (04:32)
[2019-11-10] MEDS: FentaNYL (PF) 1,000 MCG in 0.9 % Sodium Chloride 80 ML IVC SCH ×3 (04:45→16:16)
[2019-11-10] MEDS ORDERED: *HR* Heparin 5,000 UNIT/ML VIAL IVP ONE (04:50)
[2019-11-10] MEDS ORDERED: *HR* Heparin 5,000 UNIT/ML VIAL IVP PRN (04:50)
[2019-11-10 05:00] LABS: ABG Base Excess -6 mEq/L (-2 to 3); ABG HCO3 24 mEq/L (21-27); ABG Oxygen Saturation 99 % (95-98); ABG PCO2 67 mmHg (35-45); ABG PH 7.16 pH Units (7.32-7.45); ABG PO2 155 mmHg (85-104); ABG TCO2 26 mEq/L (20-26); Blood Gas Modality ASSIST CONTROL; Blood Gas VT 550 cc
[2019-11-10 06:41] LABS: Hematocrit 35.5 % (37.5-50.1); Hemoglobin 11.6 g/dL (12.9-16.9); Mean Corpuscular HGB Conc 32.7 g/dL (31.6-35.5); Mean Corpuscular Volume 91.7 fL (83.0-100.0); Mean Platelet Volume 10.5 fL (9.4-12.4); Platelet Count 137 K/mcL (140-400); Red Blood Count 3.87 M/mcL (4.19-5.50); Red Cell Distribution Width 13.1 % (11.5-14.5); White Blood Count 9.4 K/mcL (4.3-11.1)
[2019-11-10] MEDS ORDERED: Ondansetron 4 MG/2 ML VIAL IVP PRN (06:48)
[2019-11-10] MEDS ORDERED: Naloxone 0.4 MG/ML INJ IVP PRN (06:48)
[2019-11-10] MEDS ORDERED: D5% in Water 1,000 ML IVC PRN (06:56)
[2019-11-10] MEDS ORDERED: *HR* Dextrose 50 % in Water (Syg) 50 ML SYRINGE IVP PRN (06:56)
[2019-11-10] MEDS ORDERED: Dextrose Gel 15 GM/37.5 ML TUBE PO PRN ×2 (06:56)
[2019-11-10] MEDS: Heparin 25,000 UNIT/250 ML D5W 25,000 UNIT/250 ML IV.SOLN IVC SCH ×2 (07:28→20:04)
[2019-11-10] MEDS ORDERED: Doxycycline 100 MG in 0.9 % Sodium Chloride Mini Bag 100 ML IVPB SCH (08:00)
[2019-11-10] MEDS: Piperacillin/Tazobactam 3.375 GM in 0.9 % Sodium Chloride Mini Bag 100 ML IVPB SCH ×3 (08:55→23:45)
[2019-11-10] MEDS: Artificial Tears SOLN 15 ML BOTTLE BOTH EYES SCH ×4 (08:55→20:03)
[2019-11-10] MEDS: Chlorhexidine Rinse 15 ML MOUTHWASH MM SCH ×2 (08:56→20:03)
[2019-11-10] MEDS ORDERED: Albumin 25% 25gram/100mL 25 GM/100 ML IV.SOLN IVPB ONE (09:49)
[2019-11-10] MEDS: Norepinephrine 4 MG in 0.9 % Sodium Chloride 250 ML IVC SCH ×3 (09:52→16:15)
[2019-11-10 09:56] LABS: ABG Base Excess -3 mEq/L (-2 to 3); ABG HCO3 23 mEq/L (21-27); ABG Oxygen Saturation 100 % (95-98); ABG PCO2 45 mmHg (35-45); ABG PH 7.32 pH Units (7.32-7.45); ABG PO2 233 mmHg (85-104); ABG TCO2 24 mEq/L (20-26); Blood Gas Modality ASSIST CONTROL; Blood Gas VT 500 cc
[2019-11-10 10:17] LABS: Bilirubin,Urine Moderate (Negative); Blood,Urine Small (Negative); Clarity,Urine Turbid (Clear); Color,Urine Red (Yellow); Glucose,Urine (UA) 100 mg/dL (Normal); Ketones,Urine Trace mg/dL (Negative); Leukocyte Esterase,Urine Small (Negative); Nitrite,Urine Positive (Negative); Protein,Urine 100 mg/dL (Neg-Trace)
[2019-11-10 10:20] LABS: Squamous Epithelial Cell,Urine Many per lpf (None-Few)
[2019-11-10 10:29] LABS: Amphetamine Screen,Urine Positive ng/mL (Cutoff=1000); Barbiturate Screen,Urine Negative ng/mL (Cutoff=200); Benzodiazepines Screen,Urine Negative ng/mL (Cutoff=200); Cannabinoid Screen,Urine Negative ng/mL (Cutoff = 50); Cocaine Screen,Urine Negative ng/mL (Cutoff= 300); Opiate Screen,Urine Negative ng/mL (Cutoff=300); Phencyclidine Screen,Urine Negative ng/mL (Cutoff=25)
[2019-11-10 10:32] LABS: Alanine Aminotransferase 14 Units/L (7-52); Albumin 2.8 g/dL (3.5-5.7); Alkaline Phosphatase 82 Units/L (34-104); Aspartate Amino Transferase 26 Units/L (13-39); BUN/Creatinine Ratio 12 (6-26); Bilirubin,Total 2.1 mg/dL (0.3-1.0); Blood Urea Nitrogen 44 mg/dL (6-20); Calcium 8.4 mg/dL (8.6-10.3); Carbon Dioxide 23 mEq/L (23-29); Chloride 89 mEq/L (98-107); Chol/HDL Ratio 17.5 (0-4.9); Cholesterol 70 mg/dL (< 200); Globulin 2.9 g/dL (2.4-3.5); Glucose 162 mg/dL (70-105); HDL Cholesterol 4 mg/dL (40-59); LDL Cholesterol,Calculated 5 mg/dL (0-99); Magnesium 1.6 mg/dL (1.6-2.6); Osmolality,Calculated 273 (280-300); Phosphorous 4.2 mg/dL (2.7-4.5); Potassium 4.5 mEq/L (3.5-5.1); Sodium 124 mEq/L (136-145); Total Protein 5.7 g/dL (6.4-8.9); Triglycerides 303 mg/dL (< 150); Troponin I < 0.03 ng/mL (< 0.04); eGFR For African Americans 24 (> 60); eGFR For Non-African Americans 20 (> 60)
[2019-11-10 10:36] LABS: Bacteria,Urine Many per hpf (None-Few); WBC,Urine 15-30 per hpf (0-3)
[2019-11-10] MEDS: Insulin LISPRO 300 UNITS/3 ML VIAL SQ SCH ×2 (11:21→17:37)
[2019-11-10] MEDS: *HR* Heparin 5,000 UNIT/ML VIAL IVP PRN (13:05)
[2019-11-10 13:12] LABS: Sodium 125 mEq/L (136-145)
[2019-11-10 13:13] LABS: Troponin I < 0.03 ng/mL (< 0.04)
[2019-11-10] MEDS: Azithromycin 500 MG in 0.9 % Sodium Chloride 250 ML IVPB SCH (13:42)
[2019-11-10] MEDS: Vasopressin 40 UNIT in D5% in Water 100 ML IVC SCH (15:14)
[2019-11-10 16:08] LABS: Enterococcus by PCR Not Detected (Not Detect); mecA Methicillin-Resist Gene DETECTED (Not Detect)
[2019-11-10 16:09] LABS: Acinetobacter baumannii by PCR Not Detected (Not Detect); Candida albicans by PCR Not Detected (Not Detect); Candida glabrata by PCR Not Detected (Not Detect); Candida krusei by PCR Not Detected (Not Detect); Candida parapsilosis by PCR Not Detected (Not Detect); Candida tropicalis by PCR Not Detected (Not Detect); Enterobacter cloacae Cmplx PCR Not Detected (Not Detect); Enterobacteriaceae by PCR Not Detected (Not Detect); Escherichia coli by PCR Not Detected (Not Detect); Klebsiella oxytoca by PCR Not Detected (Not Detect); Klebsiella pneumoniae by PCR Not Detected (Not Detect); Proteus by PCR Not Detected (Not Detect); Pseudomonas aeruginosa by PCR Not Detected (Not Detect); Serratia marcescens by PCR Not Detected (Not Detect); Staphylococcus aureus by PCR DETECTED (Not Detect); Streptococcus agalactiae(B)PCR Not Detected (Not Detect); Streptococcus by PCR Not Detected (Not Detect); Streptococcus pneumoniae PCR Not Detected (Not Detect); Streptococcus pyogenes (A) PCR Not Detected (Not Detect)
[2019-11-10] MEDS ORDERED: EPINEPHrine 1 MG/ML VIAL IM PRN (16:21)
[2019-11-10 16:23] LABS: Rheumatoid Factor 14 IU/mL (Less than 14)
[2019-11-10 16:27] LABS: Complement C3 72 mg/dL (87-200)
[2019-11-10] MEDS ORDERED: Albumin Human 5% 12.5 GM/250 ML IV.SOLN IVC ONE (16:54)
[2019-11-10] MEDS ORDERED: DAPTOmycin 800 MG in 0.9 % Sodium Chloride 100 ML IVPB ONE (17:00)
[2019-11-10 17:01] LABS: VBG Ionized Calcium 0.94 mmol/L (1.15-1.35)
[2019-11-10 17:05] LABS: Hepatitis B Surface Antigen Nonreactive (Nonreactive)
[2019-11-10] MEDS ORDERED: Ringers Solution, Lactated 1,000 ML ONE (17:09)
[2019-11-10 17:19] LABS: Albumin/Globulin Ratio 1.1 (1.1-2.2); Bilirubin,Total 2.4 mg/dL (0.3-1.0); Calcium 8.2 mg/dL (8.6-10.3); Globulin 2.8 g/dL (2.4-3.5); Magnesium 1.6 mg/dL (1.6-2.6); Phosphorous 3.5 mg/dL (2.7-4.5); Potassium 4.4 mEq/L (3.5-5.1); Total Protein 5.8 g/dL (6.4-8.9)
[2019-11-10 17:34] LABS: ABG Base Excess -5 mEq/L (-2 to 3); ABG HCO3 21 mEq/L (21-27); ABG Oxygen Saturation 93 % (95-98); ABG PCO2 42 mmHg (35-45); ABG PH 7.31 pH Units (7.32-7.45); ABG PO2 74 mmHg (85-104); ABG TCO2 22 mEq/L (20-26); Blood Gas Modality ASSIST CONTROL; Blood Gas VT 500 cc
[2019-11-10 17:34] LABS: Hepatitis B Core IgM Nonreactive (Nonreactive)
[2019-11-10] MEDS: Norepinephrine 8 MG in 0.9 % Sodium Chloride 250 ML IVC SCH ×2 (18:22→23:47)
[2019-11-10 22:03] LABS: Troponin I 0.07 ng/mL (< 0.04)
[2019-11-10] MEDS ORDERED: Ringers Solution, Lactated 500 ML IVC ONE (22:43)
[2019-11-10 23:38] LABS: Hepatitis A Antibody IgM Equivocal (Nonreactive); Hepatitis C Virus Antibody Reactive (Nonreactive)
[2019-11-11] MEDS: Insulin LISPRO 300 UNITS/3 ML VIAL SQ SCH ×4 (01:17→18:44)
[2019-11-11] MEDS: Artificial Tears SOLN 15 ML BOTTLE BOTH EYES SCH ×6 (01:18→20:52)
[2019-11-11 03:42] LABS: Hematocrit 31.5 % (37.5-50.1); Hemoglobin 10.2 g/dL (12.9-16.9); Mean Corpuscular HGB Conc 32.4 g/dL (31.6-35.5); Mean Corpuscular Hemoglobin 29.8 pg (28.0-33.3); Mean Corpuscular Volume 92.1 fL (83.0-100.0); Mean Platelet Volume 10.5 fL (9.4-12.4); Platelet Count 155 K/mcL (140-400); Red Blood Count 3.42 M/mcL (4.19-5.50); Red Cell Distribution Width 13.6 % (11.5-14.5)
[2019-11-11 03:49] LABS: White Blood Count 14.5 K/mcL (4.3-11.1)
[2019-11-11] MEDS: FentaNYL (PF) 1,000 MCG in 0.9 % Sodium Chloride 80 ML IVC SCH ×2 (03:52→13:57)
[2019-11-11] MEDS ORDERED: Ringers Solution, Lactated 500 ML IVC ONE (03:54)
[2019-11-11 03:56] LABS: ABG Ionized Calcium 0.97 mmol/L (1.15-1.35)
[2019-11-11 03:59] LABS: ABG Base Excess -4 mEq/L (-2 to 3); ABG HCO3 22 mEq/L (21-27); ABG Oxygen Saturation 96 % (95-98); ABG PCO2 40 mmHg (35-45); ABG PH 7.34 pH Units (7.32-7.45); ABG PO2 90 mmHg (85-104); ABG TCO2 23 mEq/L (20-26); Blood Gas Modality ASSIST CONTROL; Blood Gas VT 500 cc
[2019-11-11 04:02] LABS: Albumin 2.9 g/dL (3.5-5.7); Calcium 8.2 mg/dL (8.6-10.3); Eosinophils # 0.6 K/mcL (0.0-0.6); Globulin 2.9 g/dL (2.4-3.5); Lymphocytes # 1.5 K/mcL (0.6-4.6); Magnesium 1.7 mg/dL (1.6-2.6); Neutrophils # 12.5 K/mcL (1.6-8.9); Potassium 5.1 mEq/L (3.5-5.1); Total Protein 5.8 g/dL (6.4-8.9)
[2019-11-11 04:03] LABS: Platelet Estimate Normal (Normal); Toxic Granulation Present (Not Present)
[2019-11-11] MEDS ORDERED: Potassium Chloride 40 MEQ/200 ML BAG IVPB PRN (05:27)
[2019-11-11] MEDS ORDERED: Potassium Phosphate 44 MEQ in 0.9 % Sodium Chloride 250 ML IVPB PRN (05:27)
[2019-11-11] MEDS: Calcium Gluconate 1gm/50mL 1 GM/50 ML BAG IVPB PRN ×2 (05:39→14:51)
[2019-11-11] MEDS: *HR* Heparin 5,000 UNIT/ML VIAL IVP PRN ×3 (05:40→18:48)
[2019-11-11] MEDS: Heparin 25,000 UNIT/250 ML D5W 25,000 UNIT/250 ML IV.SOLN IVC SCH ×2 (09:56→17:39)
[2019-11-11] MEDS: Piperacillin/Tazobactam 3.375 GM in 0.9 % Sodium Chloride Mini Bag 100 ML IVPB SCH (09:58)
[2019-11-11] MEDS: Chlorhexidine Rinse 15 ML MOUTHWASH MM SCH ×2 (09:59→20:51)
[2019-11-11 10:54] LABS: INR 1.3; Prothrombin Time 14.7 Seconds (9.4-12.1)
[2019-11-11 10:56] LABS: Activated Partial Thrombo Time 40.7 Seconds (26.0-36.0)
[2019-11-11 11:32] LABS: Heparin anti-factor XA UFH 0.12 IU/mL (0.30-0.70)
[2019-11-11 11:44] LABS: C-Reactive Protein > 300 mg/L (Less than 10); Ferritin 588 ng/mL (20-250); Magnesium 2.3 mg/dL (1.6-2.6)
[2019-11-11] MEDS: Azithromycin 500 MG in 0.9 % Sodium Chloride 250 ML IVPB SCH (13:50)
[2019-11-11] MEDS: Vasopressin 40 UNIT in D5% in Water 100 ML IVC SCH (13:51)
[2019-11-11] MEDS: Norepinephrine 8 MG in 0.9 % Sodium Chloride 250 ML IVC SCH (13:57)
[2019-11-11 14:42] LABS: VBG Ionized Calcium 1.01 mmol/L (1.15-1.35)
[2019-11-11] MEDS ORDERED: *HR* Propofol 200 MG/20 ML VIAL IVP ONE (16:09)
[2019-11-11] MEDS ORDERED: *HR* Rocuronium Bromide 100 MG/10 ML VIAL IVC ONE (16:09)
[2019-11-11] MEDS ORDERED: *HR* Etomidate 40 MG/20 ML VIAL IVP ONE (16:09)
[2019-11-11] MEDS: D5 IVPB SCH (17:36)
[2019-11-11] MEDS: WATER IVPB SCH (17:36)
[2019-11-11] MEDS: CEFTAROLINE FOSAMIL ACETATE IVPB SCH (17:36)
[2019-11-12] MEDS: Insulin LISPRO 300 UNITS/3 ML VIAL SQ SCH ×3 (00:20→15:15)
[2019-11-12] MEDS: Artificial Tears SOLN 15 ML BOTTLE BOTH EYES SCH ×3 (00:21→07:39)
[2019-11-12] MEDS: Heparin 25,000 UNIT/250 ML D5W 25,000 UNIT/250 ML IV.SOLN IVC SCH ×2 (00:38→08:37)
[2019-11-12] MEDS: FentaNYL (PF) 1,000 MCG in 0.9 % Sodium Chloride 80 ML IVC SCH ×2 (01:00→09:18)
[2019-11-12] MEDS: *HR* Heparin 5,000 UNIT/ML VIAL IVP PRN (02:08)
[2019-11-12] MEDS: Norepinephrine 8 MG in 0.9 % Sodium Chloride 250 ML IVC SCH ×2 (03:19→09:34)
[2019-11-12 04:05] LABS: Hematocrit 31.6 % (37.5-50.1); Hemoglobin 10.3 g/dL (12.9-16.9); Mean Corpuscular HGB Conc 32.6 g/dL (31.6-35.5); Mean Corpuscular Hemoglobin 30.2 pg (28.0-33.3); Mean Corpuscular Volume 92.7 fL (83.0-100.0); Mean Platelet Volume 10.5 fL (9.4-12.4); Platelet Count 190 K/mcL (140-400); Red Blood Count 3.41 M/mcL (4.19-5.50); Red Cell Distribution Width 14.3 % (11.5-14.5)
[2019-11-12 04:09] LABS: White Blood Count 24.4 K/mcL (4.3-11.1)
[2019-11-12 04:09] LABS: ABG Ionized Calcium 1.03 mmol/L (1.15-1.35)
[2019-11-12 04:25] LABS: Calcium 8.5 mg/dL (8.6-10.3); Magnesium 2.7 mg/dL (1.6-2.6); Phosphorous 4.3 mg/dL (2.7-4.5); Potassium 4.7 mEq/L (3.5-5.1)
[2019-11-12 04:31] LABS: Lymphocytes # 3.4 K/mcL (0.6-4.6); Monocytes # 0.5 K/mcL (0.0-1.3); Neutrophils # 20.5 K/mcL (1.6-8.9); Platelet Estimate Normal (Normal)
[2019-11-12 04:58] LABS: ABG Base Excess -5 mEq/L (-2 to 3); ABG HCO3 22 mEq/L (21-27); ABG Oxygen Saturation 96 % (95-98); ABG PCO2 43 mmHg (35-45); ABG PH 7.31 pH Units (7.32-7.45); ABG PO2 93 mmHg (85-104); ABG TCO2 23 mEq/L (20-26); Blood Gas Modality AF; Blood Gas VT 500 cc
[2019-11-12] MEDS: WATER IVPB SCH (05:23)
[2019-11-12] MEDS: CEFTAROLINE FOSAMIL ACETATE IVPB SCH (05:23)
[2019-11-12] MEDS: D5 IVPB SCH (05:23)
[2019-11-12] MEDS: Calcium Gluconate 1gm/50mL 1 GM/50 ML BAG IVPB PRN (06:06)
[2019-11-12] MEDS ORDERED: *HR* Heparin 5,000 UNIT/ML VIAL CRRT PRN (07:17)
[2019-11-12] MEDS ORDERED: PrismaSATE BGK 4/2.5 5,000 ML CRRT SCH ×2 (07:30)
[2019-11-12] MEDS ORDERED: 0.9 % Sodium Chloride 1,000 ML PRIME SCH (07:30)
[2019-11-12] MEDS: Chlorhexidine Rinse 15 ML MOUTHWASH MM SCH (07:38)
[2019-11-12 08:56] LABS: Heparin anti-factor XA UFH 0.1 IU/mL (0.30-0.70); INR 1.1; Prothrombin Time 12.8 Seconds (9.4-12.1)
[2019-11-12] MEDS ORDERED: Ipratropium/Albuterol Neb 3 ML ONE (09:14)
[2019-11-12] MEDS ORDERED: Ipratropium/Albuterol Neb 3 ML IH PRN (09:30)
[2019-11-12] MEDS: Ipratropium/Albuterol Neb 3 ML IH SCH ×4 (09:38→16:10)
[2019-11-12] MEDS ORDERED: MetroNIDAZOLE 500 MG/100 ML 500 MG/100 ML BAG IVPB SCH (11:00)
[2019-11-12 13:14] LABS: Protein/Creatinine Ratio,Urine 1.9 mg/mg (0.00-0.20)
[2019-11-12] MEDS ORDERED: Norepinephrine 4 MG in 0.9 % Sodium Chloride 250 ML IVC SCH (14:00)
[2019-11-12 14:03] VITALS: BP 111/47
[2019-11-12] MEDS ORDERED: DAPTOmycin 800 MG in 0.9 % Sodium Chloride 100 ML IVPB ONE (14:09)
[2019-11-12] MEDS: Vasopressin 40 UNIT in D5% in Water 100 ML IVC SCH (15:15)
[2019-11-13 10:05] LABS: ANA IgG by ELISA NONE DETECTED (None Detected)
[2019-11-13 17:11] LABS: APTT (LE Anticoag) 62 sec (32-48); Diluted Russell Viper Venom 49 sec (33-44); LE Coag APTT Mixing 55 sec (32-48); LE Dil. Russell Viper Mix 1:1 42 sec (33-44); PT (LE-Anticoag) 17.1 sec (12.0-15.5); Thrombin Time 19.5 sec (14.7-19.5)
[2019-11-13 23:43] LABS: Urine Collection Volume RANDOM mL
[2019-11-14 09:02] LABS: Serine Protease-3 Antibody 1 AU/mL (0-19)
[2019-11-14 09:03] LABS: GBM IgG Multiplex Bead Assay 0 AU/mL (0-19); Glomerular Basement Memb IgG NEGATIVE (Negative)
[2019-11-14 10:04] LABS: Alpha 2 Globulin (PEP) 0.82 g/dL (0.48-1.05); Beta Globulin (PEP) 0.52 g/dL (0.48-1.10)
[2019-11-14 12:15] LABS: IFE Reflexed NOT DONE
== END 2019-11-12 16:10 | disposition critical access hospital (66) | DRG 720 ==
LOC: EMEROOARM 01:24 → 2NNU 05:20 → ICNU 11-11 22:42
PROVIDERS: ADMIT Student in an Organized Health Care Education/Training Program; ATTEND Student in an Organized Health Care Education/Training Program

== ENCOUNTER 2020-07-25 21:02 | Inpatient (IN) ==
[2020-07-25] MEDS ORDERED: *HR* Rocuronium Bromide 100 MG/10 ML VIAL IVP ONE (21:04)
[2020-07-25] MEDS ORDERED: *HR* Etomidate 20 MG/10 ML AMPUL IVP ONE (21:04)
[2020-07-25] MEDS ORDERED: Isovue-370 500 ML BOTTLE IVP ONE ×2 (21:15→21:20)
[2020-07-25] MEDS ORDERED: *HR* LORazepam 2 MG/ML VIAL IVP ONE (21:24)
[2020-07-25 21:48] LABS: Basophils % 0.4 %; Eosinophils % 0.2 %; Hematocrit 50.6 % (37.5-50.1); Hemoglobin 16.1 g/dL (12.9-16.9); Immature Granulocytes % 0.2 % (0-4); Lymphocytes # 0.9 K/mcL (0.6-4.6); Lymphocytes % 15.8 %; Mean Corpuscular HGB Conc 31.8 g/dL (31.6-35.5); Mean Corpuscular Hemoglobin 27.9 pg (28.0-33.3); Mean Corpuscular Volume 87.7 fL (83.0-100.0); Mean Platelet Volume 8.5 fL (9.4-12.4); Monocytes # 0.4 K/mcL (0.0-1.3); Monocytes % 6.7 %; Neutrophils # 4.2 K/mcL (1.6-8.9); Platelet Count 215 K/mcL (140-400); Red Blood Count 5.77 M/mcL (4.19-5.50); Red Cell Distribution Width 13.6 % (11.5-14.5); Segmented Neutrophils % 76.7 %; White Blood Count 5.5 K/mcL (4.3-11.1)
[2020-07-25 21:49] LABS: VBG HCO3 26 mEq/L (21-27); VBG PCO2 54 mmHg (41-51); VBG PH 7.29 pH Units (7.32-7.42); VBG PO2 145 mmHg (25-50)
[2020-07-25 22:09] LABS: ABG Base Excess -3 mEq/L (-2 to 3); ABG HCO3 27 mEq/L (21-27); ABG Oxygen Saturation 95 % (95-98); ABG PCO2 65 mmHg (35-45); ABG PH 7.23 pH Units (7.32-7.45); ABG PO2 95 mmHg (85-104); ABG TCO2 29 mEq/L (20-26); Blood Gas Modality ASSIST CONTROL; Blood Gas VT 500 cc
[2020-07-25 22:12] LABS: BUN/Creatinine Ratio 15 (6-26); Blood Urea Nitrogen 11 mg/dL (6-20); Calcium 9.5 mg/dL (8.6-10.3); Carbon Dioxide 23 mEq/L (23-29); Chloride 100 mEq/L (98-107); Glucose 152 mg/dL (70-105); Osmolality,Calculated 278 (280-300); Potassium 4.2 mEq/L (3.5-5.1); Sodium 133 mEq/L (136-145); eGFR For African Americans > 60 (> 60); eGFR For Non-African Americans > 60 (> 60)
[2020-07-25 22:17] LABS: Troponin I 0.04 ng/mL (< 0.04)
[2020-07-25] MEDS ORDERED: *HR* Midazolam HCl 5 MG/5 ML VIAL IVP ONE (22:41)
[2020-07-25] MEDS: Midazolam HCl 50 MG/100 ML IV.SOLN IVC SCH (22:52)
[2020-07-25] MEDS ORDERED: Piperacillin/Tazobactam 3.375 GM in 0.9 % Sodium Chloride Mini Bag 100 ML IVPB ONE (23:03)
[2020-07-25] MEDS ORDERED: 0.9 % Sodium Chloride 1,000 ML IVC ONE ×2 (23:11→23:59)
[2020-07-25 23:23] LABS: Bilirubin,Urine Negative (Negative); Blood,Urine Negative (Negative); Clarity,Urine Clear (Clear); Color,Urine Light-Yellow (Yellow); Glucose,Urine (UA) Normal (Normal); Ketones,Urine Negative (Negative); Leukocyte Esterase,Urine Negative (Negative); Nitrite,Urine Negative (Negative); Protein,Urine Negative (Neg-Trace); Specific Gravity,Urine 1.016 (1.010-1.025); Urobilinogen,Urine Normal (Normal)
[2020-07-25 23:34] LABS: ABG Base Excess -2 mEq/L (-2 to 3); ABG HCO3 28 mEq/L (21-27); ABG Oxygen Saturation 96 % (95-98); ABG PCO2 69 mmHg (35-45); ABG PH 7.22 pH Units (7.32-7.45); ABG PO2 101 mmHg (85-104); ABG TCO2 30 mEq/L (20-26); Blood Gas Modality ASSIST CONTROL; Blood Gas VT 500 cc
[2020-07-26] MEDS ORDERED: Ondansetron ODT 4 MG TAB.RAPDIS SL PRN (00:19)
[2020-07-26] MEDS ORDERED: Naloxone 0.4 MG/ML INJ IVP PRN ×2 (00:19→01:06)
[2020-07-26] MEDS: Midazolam HCl 50 MG/100 ML IV.SOLN IVC SCH ×3 (00:40→20:15)
[2020-07-26] MEDS ORDERED: Acetaminophen 650 MG RECTAL SUPP RC ONE (00:55)
[2020-07-26 00:58] LABS: ABG Base Excess -2 mEq/L (-2 to 3); ABG HCO3 26 mEq/L (21-27); ABG Oxygen Saturation 99 % (95-98); ABG PCO2 52 mmHg (35-45); ABG PO2 147 mmHg (85-104); ABG TCO2 27 mEq/L (20-26); Blood Gas Modality ASSIST CONTROL; Blood Gas VT 550 cc
[2020-07-26] MEDS ORDERED: Artificial Tears SOLN 15 ML BOTTLE BOTH EYES PRN (01:04)
[2020-07-26] MEDS: Chlorhexidine Rinse 15 ML MOUTHWASH MM SCH ×3 (01:25→20:16)
[2020-07-26] MEDS: 0.9 % Sodium Chloride 1,000 ML IVC SCH ×2 (02:34→03:41)
[2020-07-26] MEDS: *HR* Heparin 5,000 UNIT/ML VIAL SQ SCH ×3 (02:37→21:13)
[2020-07-26] MEDS: Artificial Tears SOLN 15 ML BOTTLE BOTH EYES SCH ×6 (04:31→23:07)
[2020-07-26 04:51] LABS: Hematocrit 26.1 % (37.5-50.1); Lymphocytes # 0.8 K/mcL (0.6-4.6); Mean Corpuscular HGB Conc 30.7 g/dL (31.6-35.5); Mean Corpuscular Hemoglobin 28.6 pg (28.0-33.3); Mean Corpuscular Volume 93.2 fL (83.0-100.0); Mean Platelet Volume 8.7 fL (9.4-12.4); Platelet Count 107 K/mcL (140-400); Red Cell Distribution Width 13.7 % (11.5-14.5)
[2020-07-26 04:54] LABS: VBG Ionized Calcium 0.66 mmol/L (1.15-1.35)
[2020-07-26 04:59] LABS: INR 1.7; Prothrombin Time 19.4 Seconds (9.4-12.1)
[2020-07-26 05:06] LABS: ABG Base Excess -3 mEq/L (-2 to 3); ABG HCO3 23 mEq/L (21-27); ABG Oxygen Saturation 94 % (95-98); ABG PCO2 44 mmHg (35-45); ABG PH 7.33 pH Units (7.32-7.45); ABG PO2 78 mmHg (85-104); ABG TCO2 25 mEq/L (20-26); Blood Gas VT 550 cc
[2020-07-26] MEDS ORDERED: Ringers Solution, Lactated 1,000 ML IVC ONE (05:08)
[2020-07-26 05:29] LABS: Monocytes # 0.1 K/mcL (0.0-1.3); Neutrophils # 3.1 K/mcL (1.6-8.9); Platelet Estimate Slight Decrease (Normal)
[2020-07-26] MEDS: Calcium Gluconate 1gm/50mL 1 GM/50 ML BAG IVPB SCH ×4 (05:33→15:49)
[2020-07-26] MEDS: Pantoprazole 40 MG VIAL IVP SCH (08:31)
[2020-07-26] MEDS: Piperacillin/Tazobactam 3.375 GM in 0.9 % Sodium Chloride Mini Bag 100 ML IVPB SCH ×3 (08:32→23:03)
[2020-07-26 08:35] LABS: Basophils % 0.3 %; Eosinophils # 0.1 K/mcL (0.0-0.6); Eosinophils % 0.8 %; Hematocrit 40.3 % (37.5-50.1); Immature Granulocytes % 0.4 % (0-4); Lymphocytes # 1.2 K/mcL (0.6-4.6); Lymphocytes % 15.6 %; Mean Corpuscular HGB Conc 31.3 g/dL (31.6-35.5); Mean Corpuscular Hemoglobin 27.9 pg (28.0-33.3); Mean Corpuscular Volume 89.4 fL (83.0-100.0); Mean Platelet Volume 8.8 fL (9.4-12.4); Monocytes # 0.6 K/mcL (0.0-1.3); Monocytes % 7.6 %; Neutrophils # 5.9 K/mcL (1.6-8.9); Platelet Count 157 K/mcL (140-400); Red Blood Count 4.51 M/mcL (4.19-5.50); Red Cell Distribution Width 13.9 % (11.5-14.5); Segmented Neutrophils % 75.3 %
[2020-07-26 08:36] LABS: Hemoglobin 12.6 g/dL (12.9-16.9); White Blood Count 7.8 K/mcL (4.3-11.1)
[2020-07-26 08:44] LABS: INR 1.3; Prothrombin Time 14.6 Seconds (9.4-12.1)
[2020-07-26 08:46] LABS: Activated Partial Thrombo Time 27.9 Seconds (26.0-36.0)
[2020-07-26 08:55] LABS: Reactive Lymphocytes Present (Not Present)
[2020-07-26 08:56] LABS: Platelet Estimate Normal (Normal)
[2020-07-26 08:56] LABS: VBG Ionized Calcium 1.07 mmol/L (1.15-1.35)
[2020-07-26 09:01] LABS: Alanine Aminotransferase 9 Units/L (7-52); Albumin 3.2 g/dL (3.5-5.7); Albumin/Globulin Ratio 1.3 (1.1-2.2); Alkaline Phosphatase 59 Units/L (34-104); Aspartate Amino Transferase 18 Units/L (13-39); BUN/Creatinine Ratio 18 (6-26); Bilirubin,Direct 0.2 mg/dL (0.0-0.2); Bilirubin,Indirect 0.4 mg/dL (0.0-1.0); Bilirubin,Total 0.6 mg/dL (0.3-1.0); Blood Urea Nitrogen 15 mg/dL (6-20); Calcium 8.4 mg/dL (8.6-10.3); Carbon Dioxide 23 mEq/L (23-29); Chloride 103 mEq/L (98-107); Globulin 2.4 g/dL (2.4-3.5); Glucose 145 mg/dL (70-105); Magnesium 1.6 mg/dL (1.6-2.6); Osmolality,Calculated 279 (280-300); Phosphorous 4.1 mg/dL (2.7-4.5); Potassium 5.5 mEq/L (3.5-5.1); Sodium 133 mEq/L (136-145); Total Protein 5.6 g/dL (6.4-8.9); eGFR For African Americans > 60 (> 60); eGFR For Non-African Americans > 60 (> 60)
[2020-07-26] MEDS ORDERED: Perflutren Lipid Microsphere 1.3 ML in 0.9 % Sodium Chloride 8.7 ML IVP PRN (09:47)
[2020-07-26] MEDS ORDERED: DAPTOmycin 800 MG in 0.9 % Sodium Chloride 100 ML IVPB SCH (11:00)
[2020-07-26] MEDS ORDERED: Magnesium Sulfate 1 GM/102 ML PIGGYBACK IVPB ONE (13:12)
[2020-07-26 14:59] LABS: Appearance of Body Fluid Cloudy (Clear); Volume of Body Fluid 21 mL
[2020-07-26 15:09] LABS: Appearance of Body Fluid Cloudy (Clear); Volume of Body Fluid 24 mL
[2020-07-26 20:59] LABS: VBG Ionized Calcium 1.17 mmol/L (1.15-1.35)
[2020-07-26 21:12] LABS: BUN/Creatinine Ratio 17 (6-26); Blood Urea Nitrogen 12 mg/dL (6-20); Calcium 9.3 mg/dL (8.6-10.3); Carbon Dioxide 25 mEq/L (23-29); Chloride 103 mEq/L (98-107); Glucose 111 mg/dL (70-105); Magnesium 2.3 mg/dL (1.6-2.6); Osmolality,Calculated 278 (280-300); Phosphorous 2.7 mg/dL (2.7-4.5); Potassium 4.3 mEq/L (3.5-5.1); Sodium 134 mEq/L (136-145); eGFR For African Americans > 60 (> 60); eGFR For Non-African Americans > 60 (> 60)
[2020-07-26 22:39] LABS: Troponin I 0.03 ng/mL (< 0.04)
[2020-07-27] MEDS: Artificial Tears SOLN 15 ML BOTTLE BOTH EYES SCH ×6 (03:40→23:02)
[2020-07-27 04:27] LABS: Hematocrit 35.3 % (37.5-50.1); Mean Corpuscular HGB Conc 31.2 g/dL (31.6-35.5); Mean Corpuscular Hemoglobin 27.7 pg (28.0-33.3); Mean Corpuscular Volume 88.9 fL (83.0-100.0); Platelet Count 139 K/mcL (140-400); Red Blood Count 3.97 M/mcL (4.19-5.50); Red Cell Distribution Width 13.8 % (11.5-14.5); White Blood Count 8.7 K/mcL (4.3-11.1)
[2020-07-27 04:31] LABS: ABG Base Excess 2 mEq/L (-2 to 3); ABG HCO3 26 mEq/L (21-27); ABG Oxygen Saturation 93 % (95-98); ABG PCO2 41 mmHg (35-45); ABG PH 7.41 pH Units (7.32-7.45); ABG PO2 65 mmHg (85-104); ABG TCO2 28 mEq/L (20-26); Blood Gas Modality AF; Blood Gas VT 600 cc
[2020-07-27 04:46] LABS: BUN/Creatinine Ratio 16 (6-26); Blood Urea Nitrogen 10 mg/dL (6-20); Calcium 8.6 mg/dL (8.6-10.3); Carbon Dioxide 24 mEq/L (23-29); Chloride 105 mEq/L (98-107); Glucose 99 mg/dL (70-105); Magnesium 2.1 mg/dL (1.6-2.6); Osmolality,Calculated 279 (280-300); Phosphorous 1.8 mg/dL (2.7-4.5); Potassium 3.8 mEq/L (3.5-5.1); Sodium 135 mEq/L (136-145); eGFR For African Americans > 60 (> 60); eGFR For Non-African Americans > 60 (> 60)
[2020-07-27] MEDS: *HR* Heparin 5,000 UNIT/ML VIAL SQ SCH ×3 (05:02→22:42)
[2020-07-27] MEDS: Pantoprazole 40 MG VIAL IVP SCH (07:30)
[2020-07-27] MEDS: Midazolam HCl 50 MG/100 ML IV.SOLN IVC SCH (07:30)
[2020-07-27] MEDS: Chlorhexidine Rinse 15 ML MOUTHWASH MM SCH ×2 (07:30→20:20)
[2020-07-27] MEDS: Piperacillin/Tazobactam 3.375 GM in 0.9 % Sodium Chloride Mini Bag 100 ML IVPB SCH ×3 (07:31→23:01)
[2020-07-27 09:18] LABS: Creatine Kinase 1467 Units/L (30-223)
[2020-07-27 19:50] LABS: Phosphorous 2.8 mg/dL (2.7-4.5)
[2020-07-28] MEDS ORDERED: *HR* Dextrose 50 % in Water (Vial) 50 ML VIAL ONE (00:55)
[2020-07-28] MEDS ORDERED: D5% in Water 1,000 ML IVC PRN (00:57)
[2020-07-28] MEDS ORDERED: *HR* Dextrose 50 % in Water (Vial) 50 ML VIAL IVP PRN (00:57)
[2020-07-28] MEDS ORDERED: Dextrose Gel 15 GM/37.5 ML TUBE PO PRN ×2 (00:57)
[2020-07-28] MEDS: Midazolam HCl 50 MG/100 ML IV.SOLN IVC SCH ×2 (01:29→18:16)
[2020-07-28] MEDS: Artificial Tears SOLN 15 ML BOTTLE BOTH EYES SCH ×6 (03:47→23:03)
[2020-07-28 04:25] LABS: ABG Base Excess 1 mEq/L (-2 to 3); ABG HCO3 27 mEq/L (21-27); ABG Oxygen Saturation 96 % (95-98); ABG PCO2 45 mmHg (35-45); ABG PH 7.38 pH Units (7.32-7.45); ABG PO2 85 mmHg (85-104); ABG TCO2 28 mEq/L (20-26); Blood Gas VT 500 cc
[2020-07-28] MEDS: *HR* Heparin 5,000 UNIT/ML VIAL SQ SCH ×3 (05:14→21:14)
[2020-07-28 07:24] LABS: BUN/Creatinine Ratio 13 (6-26); Blood Urea Nitrogen 7 mg/dL (6-20); Calcium 9.7 mg/dL (8.6-10.3); Carbon Dioxide 26 mEq/L (23-29); Chloride 103 mEq/L (98-107); Glucose 113 mg/dL (70-105); Osmolality,Calculated 279 (280-300); Potassium 3.7 mEq/L (3.5-5.1); Sodium 135 mEq/L (136-145); eGFR For African Americans > 60 (> 60); eGFR For Non-African Americans > 60 (> 60)
[2020-07-28] MEDS: Piperacillin/Tazobactam 3.375 GM in 0.9 % Sodium Chloride Mini Bag 100 ML IVPB SCH ×3 (08:59→23:02)
[2020-07-28] MEDS: Pantoprazole 40 MG VIAL IVP SCH (09:00)
[2020-07-28] MEDS: Chlorhexidine Rinse 15 ML MOUTHWASH MM SCH ×2 (09:00→20:01)
[2020-07-28] MEDS: Ringers Solution, Lactated 1,000 ML IVC SCH ×2 (13:02→20:24)
[2020-07-28 13:54] LABS: Creatine Kinase 866 Units/L (30-223)
[2020-07-29] MEDS: Artificial Tears SOLN 15 ML BOTTLE BOTH EYES SCH ×5 (03:06→20:22)
[2020-07-29] MEDS: Midazolam HCl 50 MG/100 ML IV.SOLN IVC SCH (04:27)
[2020-07-29 04:40] LABS: ABG Base Excess 1 mEq/L (-2 to 3); ABG HCO3 26 mEq/L (21-27); ABG Oxygen Saturation 95 % (95-98); ABG PCO2 43 mmHg (35-45); ABG PH 7.39 pH Units (7.32-7.45); ABG PO2 78 mmHg (85-104); ABG TCO2 28 mEq/L (20-26); Blood Gas VT 500 cc
[2020-07-29] MEDS: *HR* Heparin 5,000 UNIT/ML VIAL SQ SCH ×3 (05:03→21:46)
[2020-07-29] MEDS: Chlorhexidine Rinse 15 ML MOUTHWASH MM SCH ×2 (07:57→21:46)
[2020-07-29] MEDS: Piperacillin/Tazobactam 3.375 GM in 0.9 % Sodium Chloride Mini Bag 100 ML IVPB SCH ×3 (07:57→23:27)
[2020-07-29] MEDS: Pantoprazole 40 MG VIAL IVP SCH (07:57)
[2020-07-29] MEDS ORDERED: Dexmedetomidine HCl 400 MCG/100 ML MLS IVC ONE (08:00)
[2020-07-29] MEDS: Dexmedetomidine HCl 400 MCG/100 ML MLS IVC SCH ×5 (08:10→23:26)
[2020-07-29 10:02] LABS: Hematocrit 35.1 % (37.5-50.1); Mean Corpuscular HGB Conc 31.3 g/dL (31.6-35.5); Mean Corpuscular Hemoglobin 28.3 pg (28.0-33.3); Mean Corpuscular Volume 90.2 fL (83.0-100.0); Mean Platelet Volume 9.2 fL (9.4-12.4); Platelet Count 189 K/mcL (140-400); Red Blood Count 3.89 M/mcL (4.19-5.50); White Blood Count 4.3 K/mcL (4.3-11.1)
[2020-07-29 10:20] LABS: BUN/Creatinine Ratio 18 (6-26); Blood Urea Nitrogen 9 mg/dL (6-20); Calcium 9.6 mg/dL (8.6-10.3); Carbon Dioxide 27 mEq/L (23-29); Chloride 106 mEq/L (98-107); Glucose 150 mg/dL (70-105); Osmolality,Calculated 290 (280-300); Potassium 3.7 mEq/L (3.5-5.1); Sodium 139 mEq/L (136-145); eGFR For African Americans > 60 (> 60); eGFR For Non-African Americans > 60 (> 60)
[2020-07-30] MEDS: Artificial Tears SOLN 15 ML BOTTLE BOTH EYES SCH ×3 (02:11→09:14)
[2020-07-30] MEDS: Dexmedetomidine HCl 400 MCG/100 ML MLS IVC SCH ×5 (02:23→18:30)
[2020-07-30 04:02] LABS: ABG Base Excess 3 mEq/L (-2 to 3); ABG HCO3 28 mEq/L (21-27); ABG Oxygen Saturation 93 % (95-98); ABG PCO2 44 mmHg (35-45); ABG PH 7.42 pH Units (7.32-7.45); ABG PO2 67 mmHg (85-104); ABG TCO2 29 mEq/L (20-26); Blood Gas Modality ASSIST CONTROL; Blood Gas VT 500 cc
[2020-07-30] MEDS: *HR* Heparin 5,000 UNIT/ML VIAL SQ SCH ×3 (05:21→21:34)
[2020-07-30 06:10] LABS: Immature Platelets 2.2 % (1.1-6.1); Red Cell Distribution Width 13.7 % (11.5-14.5)
[2020-07-30 06:14] LABS: Eosinophils # 0.2 K/mcL (0.0-0.6); Eosinophils % 4.5 %; Hemoglobin 12.4 g/dL (12.9-16.9); Immature Granulocytes % 2.9 % (0-4); Lymphocytes # 1.3 K/mcL (0.6-4.6); Lymphocytes % 31.9 %; Mean Corpuscular HGB Conc 31.8 g/dL (31.6-35.5); Mean Corpuscular Hemoglobin 28.5 pg (28.0-33.3); Mean Corpuscular Volume 89.7 fL (83.0-100.0); Monocytes # 0.3 K/mcL (0.0-1.3); Monocytes % 7.9 %; Neutrophils # 2.2 K/mcL (1.6-8.9); Platelet Count 187 K/mcL (140-400); Red Blood Count 4.35 M/mcL (4.19-5.50); Segmented Neutrophils % 51.8 %; White Blood Count 4.2 K/mcL (4.3-11.1)
[2020-07-30 06:25] LABS: BUN/Creatinine Ratio 19 (6-26); Blood Urea Nitrogen 10 mg/dL (6-20); Carbon Dioxide 24 mEq/L (23-29); Chloride 107 mEq/L (98-107); Glucose 140 mg/dL (70-105); Osmolality,Calculated 289 (280-300); Sodium 139 mEq/L (136-145); eGFR For African Americans > 60 (> 60); eGFR For Non-African Americans > 60 (> 60)
[2020-07-30] MEDS ORDERED: Furosemide 40 MG/4 ML VIAL IVP ONE (08:02)
[2020-07-30] MEDS: Piperacillin/Tazobactam 3.375 GM in 0.9 % Sodium Chloride Mini Bag 100 ML IVPB SCH (09:14)
[2020-07-30] MEDS: Pantoprazole 40 MG VIAL IVP SCH (09:15)
[2020-07-30] MEDS: Chlorhexidine Rinse 15 ML MOUTHWASH MM SCH (09:15)
[2020-07-30 13:57] LABS: C-Reactive Protein 56 mg/L (Less than 10)
[2020-07-31] MEDS: *HR* Heparin 5,000 UNIT/ML VIAL SQ SCH (05:58)
[2020-07-31] MEDS ORDERED: Ondansetron ODT 4 MG TAB.RAPDIS SL PRN (07:13)
[2020-07-31] MEDS ORDERED: Naloxone 0.4 MG/ML INJ IVP PRN (07:13)
[2020-07-31] MEDS ORDERED: Dextrose Gel 15 GM/37.5 ML TUBE PO PRN ×2 (07:13)
[2020-07-31] MEDS ORDERED: *HR* Dextrose 50 % in Water (Vial) 50 ML VIAL IVP PRN (07:13)
[2020-07-31] MEDS ORDERED: Dexmedetomidine HCl 400 MCG/100 ML MLS IVC SCH (07:13)
[2020-07-31] MEDS ORDERED: D5% in Water 1,000 ML IVC PRN (07:13)
[2020-07-31 07:42] LABS: Basophils # 0.1 K/mcL (0.0-0.2); Basophils % 1.4 %; Eosinophils # 0.1 K/mcL (0.0-0.6); Eosinophils % 2.3 %; Hematocrit 40.7 % (37.5-50.1); Hemoglobin 12.6 g/dL (12.9-16.9); Immature Granulocytes % 4.8 % (0-4); Lymphocytes # 1.7 K/mcL (0.6-4.6); Lymphocytes % 38.5 %; Mean Corpuscular Hemoglobin 27.5 pg (28.0-33.3); Mean Corpuscular Volume 88.7 fL (83.0-100.0); Mean Platelet Volume 8.8 fL (9.4-12.4); Monocytes # 0.3 K/mcL (0.0-1.3); Monocytes % 7.3 %; Platelet Count 203 K/mcL (140-400); Red Blood Count 4.59 M/mcL (4.19-5.50); Red Cell Distribution Width 13.6 % (11.5-14.5); Segmented Neutrophils % 45.7 %; White Blood Count 4.4 K/mcL (4.3-11.1)
[2020-07-31] MEDS ORDERED: Piperacillin/Tazobactam 3.375 GM in 0.9 % Sodium Chloride Mini Bag 100 ML IVPB SCH (08:11)
[2020-07-31] MEDS ORDERED: QUEtiapine Fumarate 25 MG TABLET PO SCH (08:15)
[2020-07-31] MEDS ORDERED: Gabapentin 300 MG CAPSULE PO SCH (09:00)
[2020-07-31 09:25] VITALS: BP 150/80
[2020-07-31] MEDS ORDERED: *HR* Heparin 5,000 UNIT/ML VIAL SQ SCH (14:00)
== END 2020-07-31 12:26 | disposition home or self-care (01) | DRG 720 ==
LOC: EMEROOARM 21:02 → ICNU 21:02
PROVIDERS: ADMIT Internal Medicine; ATTEND Student in an Organized Health Care Education/Training Program

== ENCOUNTER 2020-10-02 23:36 | Inpatient (IN) ==
[2020-10-02] MEDS ORDERED: Isovue-370 500 ML BOTTLE IVP ONE (23:44)
[2020-10-02 23:48] LABS: ABG Base Excess -1 mEq/L (-2 to 3); ABG HCO3 27 mEq/L (21-27); ABG Oxygen Saturation 93 % (95-98); ABG PCO2 58 mmHg (35-45); ABG PH 7.28 pH Units (7.32-7.45); ABG PO2 76 mmHg (85-104); ABG TCO2 29 mEq/L (20-26)
[2020-10-03 00:21] LABS: Basophils % 0.4 %; Eosinophils # 0.2 K/mcL (0.0-0.6); Hematocrit 51.1 % (37.5-50.1); Hemoglobin 16.5 g/dL (12.9-16.9); Immature Granulocytes % 0.4 % (0-4); Lymphocytes # 4.7 K/mcL (0.6-4.6); Lymphocytes % 49.6 %; Mean Corpuscular HGB Conc 32.3 g/dL (31.6-35.5); Mean Corpuscular Hemoglobin 29.6 pg (28.0-33.3); Mean Corpuscular Volume 91.6 fL (83.0-100.0); Mean Platelet Volume 8.9 fL (9.4-12.4); Monocytes # 0.4 K/mcL (0.0-1.3); Monocytes % 3.9 %; Neutrophils # 4.2 K/mcL (1.6-8.9); Platelet Count 292 K/mcL (140-400); Red Blood Count 5.58 M/mcL (4.19-5.50); Red Cell Distribution Width 13.3 % (11.5-14.5); Segmented Neutrophils % 43.7 %; White Blood Count 9.5 K/mcL (4.3-11.1)
[2020-10-03] MEDS ORDERED: Ondansetron 4 MG/2 ML VIAL IVP ONE (00:36)
[2020-10-03 00:40] LABS: BUN/Creatinine Ratio 12 (6-26); Blood Urea Nitrogen 13 mg/dL (6-20); Calcium 10.1 mg/dL (8.6-10.3); Carbon Dioxide 26 mEq/L (23-29); Chloride 98 mEq/L (98-107); Ethanol < 10 mg/dL (Less than 10); Glucose 287 mg/dL (70-105); Osmolality,Calculated 287 (280-300); Potassium 4.5 mEq/L (3.5-5.1); Sodium 133 mEq/L (136-145); Troponin I < 0.03 ng/mL (< 0.04); eGFR For African Americans > 60 (> 60); eGFR For Non-African Americans > 60 (> 60)
[2020-10-03 00:56] LABS: Amphetamine Screen,Urine Positive ng/mL (Cutoff=1000); Barbiturate Screen,Urine Negative ng/mL (Cutoff=200); Benzodiazepines Screen,Urine Negative ng/mL (Cutoff=200); Cannabinoid Screen,Urine Negative ng/mL (Cutoff = 50); Cocaine Screen,Urine Negative ng/mL (Cutoff= 300); Opiate Screen,Urine Negative ng/mL (Cutoff=300); Phencyclidine Screen,Urine Negative ng/mL (Cutoff=25)
[2020-10-03] MEDS ORDERED: 0.9 % Sodium Chloride 1,000 ML IVC ONE ×2 (01:25→01:55)
[2020-10-03] MEDS ORDERED: cefTRIAXone 1,000 MG in 0.9 % Sodium Chloride Mini Bag 100 ML IVPB ONE (01:48)
[2020-10-03] MEDS ORDERED: Azithromycin 500 MG in 0.9 % Sodium Chloride 250 ML IVPB ONE (01:48)
[2020-10-03 02:55] LABS: ABG Base Excess -2 mEq/L (-2 to 3); ABG HCO3 28 mEq/L (21-27); ABG Oxygen Saturation 88 % (95-98); ABG PCO2 73 mmHg (35-45); ABG PO2 68 mmHg (85-104); ABG TCO2 31 mEq/L (20-26)
[2020-10-03] MEDS ORDERED: Ondansetron 4 MG/2 ML VIAL IVP PRN (03:01)
[2020-10-03] MEDS ORDERED: Naloxone 0.4 MG/ML INJ IVP PRN (03:01)
[2020-10-03] MEDS ORDERED: *HR* LORazepam 2 MG/ML VIAL IVP PRN (03:04)
[2020-10-03] MEDS ORDERED: Albuterol 2.5 MG/3 ML NEBULIZER IH PRN (03:27)
[2020-10-03] MEDS: Ipratropium/Albuterol Neb 3 ML IH SCH ×4 (03:47→21:54)
[2020-10-03 04:09] LABS: ABG Base Excess -4 mEq/L (-2 to 3); ABG HCO3 26 mEq/L (21-27); ABG Oxygen Saturation 89 % (95-98); ABG PCO2 68 mmHg (35-45); ABG PH 7.19 pH Units (7.32-7.45); ABG PO2 71 mmHg (85-104); ABG TCO2 28 mEq/L (20-26)
[2020-10-03 05:09] LABS: ABG Base Excess -6 mEq/L (-2 to 3); ABG HCO3 30 mEq/L (21-27); ABG Oxygen Saturation 41 % (95-98); ABG PCO2 114 mmHg (35-45); ABG PH 7.02 pH Units (7.32-7.45); ABG PO2 36 mmHg (85-104); ABG TCO2 33 mEq/L (20-26)
[2020-10-03 05:16] LABS: ABG Base Excess -9 mEq/L (-2 to 3); ABG HCO3 29 mEq/L (21-27); ABG Oxygen Saturation 75 % (95-98); ABG PCO2 140 mmHg (35-45); ABG PH 6.93 pH Units (7.32-7.45); ABG PO2 68 mmHg (85-104); ABG TCO2 34 mEq/L (20-26)
[2020-10-03] MEDS ORDERED: Artificial Tears SOLN 15 ML BOTTLE BOTH EYES PRN (05:19)
[2020-10-03] MEDS ORDERED: *HR* Meperidine 25 MG/ML SYRINGE IVP PRN (05:24)
[2020-10-03] MEDS: FentaNYL (PF) 1,000 MCG/100 ML IV.SOLN IVC SCH ×3 (05:45→15:49)
[2020-10-03 06:38] LABS: Basophils % 0.1 %; Hematocrit 48.8 % (37.5-50.1); Hemoglobin 15.1 g/dL (12.9-16.9); Immature Granulocytes % 0.1 % (0-4); Lymphocytes # 0.4 K/mcL (0.6-4.6); Lymphocytes % 5.7 %; Mean Corpuscular HGB Conc 30.9 g/dL (31.6-35.5); Mean Corpuscular Hemoglobin 28.3 pg (28.0-33.3); Mean Corpuscular Volume 91.4 fL (83.0-100.0); Mean Platelet Volume 8.8 fL (9.4-12.4); Monocytes # 0.4 K/mcL (0.0-1.3); Monocytes % 5.4 %; Neutrophils # 6.9 K/mcL (1.6-8.9); Platelet Count 209 K/mcL (140-400); Red Blood Count 5.34 M/mcL (4.19-5.50); Red Cell Distribution Width 13.4 % (11.5-14.5); Segmented Neutrophils % 88.7 %; White Blood Count 7.8 K/mcL (4.3-11.1)
[2020-10-03 06:44] LABS: ABG Base Excess -4 mEq/L (-2 to 3); ABG HCO3 25 mEq/L (21-27); ABG Oxygen Saturation 100 % (95-98); ABG PCO2 59 mmHg (35-45); ABG PH 7.24 pH Units (7.32-7.45); ABG PO2 204 mmHg (85-104); ABG TCO2 27 mEq/L (20-26); Blood Gas Modality ASSIST CONTROL; Blood Gas VT 520 cc
[2020-10-03 06:47] LABS: INR 1.1; Prothrombin Time 12.4 Seconds (9.4-12.1)
[2020-10-03 07:02] LABS: BUN/Creatinine Ratio 14 (6-26); Blood Urea Nitrogen 13 mg/dL (6-20); Calcium 8.6 mg/dL (8.6-10.3); Carbon Dioxide 25 mEq/L (23-29); Chloride 102 mEq/L (98-107); Glucose 297 mg/dL (70-105); Magnesium 2.4 mg/dL (1.6-2.6); Osmolality,Calculated 289 (280-300); Phosphorous 5.9 mg/dL (2.7-4.5); Potassium 4.8 mEq/L (3.5-5.1); Sodium 134 mEq/L (136-145); Troponin I 0.05 ng/mL (< 0.04); eGFR For African Americans > 60 (> 60); eGFR For Non-African Americans > 60 (> 60)
[2020-10-03] MEDS ORDERED: D5% in Water 1,000 ML IVC PRN (07:11)
[2020-10-03] MEDS ORDERED: Dextrose Gel 15 GM/37.5 ML TUBE PO PRN ×2 (07:11)
[2020-10-03] MEDS ORDERED: *HR* Dextrose 50 % in Water (Vial) 50 ML VIAL IVP PRN (07:11)
[2020-10-03] MEDS ORDERED: Perflutren Lipid Microsphere 1.3 ML in 0.9 % Sodium Chloride 8.7 ML IVP PRN (07:20)
[2020-10-03] MEDS: Pantoprazole 40 MG VIAL IVP SCH (07:29)
[2020-10-03] MEDS: Piperacillin/Tazobactam 3.375 GM in 0.9 % Sodium Chloride Mini Bag 100 ML IVPB SCH ×3 (07:53→23:43)
[2020-10-03] MEDS: Chlorhexidine Rinse 15 ML MOUTHWASH MM SCH ×2 (08:01→19:53)
[2020-10-03] MEDS: Midazolam HCl 50 MG/100 ML IV.SOLN IVC SCH ×2 (08:08→18:02)
[2020-10-03] MEDS: Vancomycin 2,000 MG/520 ML IV.SOLN IVPB SCH ×2 (08:09→19:56)
[2020-10-03] MEDS ORDERED: *HR* Amiodarone Premix 360 MG/200 ML BAG IVC ONE (08:37)
[2020-10-03] MEDS ORDERED: *HR* EPINEPHrine 1 MG/10 ML SYRINGE IVP ONE (08:37)
[2020-10-03] MEDS ORDERED: *HR* Amiodarone Premix 150 MG/100 ML BAG IVPB ONE (08:37)
[2020-10-03] MEDS: Artificial Tears SOLN 15 ML BOTTLE BOTH EYES SCH ×4 (08:57→19:54)
[2020-10-03] MEDS ORDERED: *HR* Rocuronium Bromide 50 MG/5 ML VIAL IVP ONE (09:18)
[2020-10-03] MEDS ORDERED: *HR* Etomidate 20 MG/10 ML AMPUL IVP ONE (09:18)
[2020-10-03 09:29] LABS: Acetaminophen < 10 mcg/mL (10-20); Albumin 4.1 g/dL (3.5-5.7); Albumin/Globulin Ratio 1.5 (1.1-2.2); Bilirubin,Direct 0.1 mg/dL (0.0-0.2); Bilirubin,Indirect 0.2 mg/dL (0.0-1.0); Bilirubin,Total 0.3 mg/dL (0.3-1.0); Creatine Kinase 210 Units/L (30-223); Globulin 2.7 g/dL (2.4-3.5); Salicylate < 2.5 mg/dL (15.0-30.0); Total Protein 6.8 g/dL (6.4-8.9)
[2020-10-03 10:36] LABS: Troponin I 0.06 ng/mL (< 0.04)
[2020-10-03] MEDS ORDERED: Amiodarone Premix 360 MG/200 ML BAG IVC ONE (11:05)
[2020-10-03] MEDS: Norepinephrine 4 MG/254 ML IV.SOLN IVC SCH ×2 (11:20→17:37)
[2020-10-03] MEDS: Amiodarone Premix 360 MG/200 ML BAG IVC SCH (11:25)
[2020-10-03] MEDS ORDERED: Ringers Solution, Lactated 1,000 ML IVC ONE (11:31)
[2020-10-03] MEDS ORDERED: 0.9 % Sodium Chloride 1,000 ML ONE (11:38)
[2020-10-03] MEDS: Insulin LISPRO 300 UNITS/3 ML VIAL SUBQ SCH ×4 (12:10→21:56)
[2020-10-03] MEDS: Ringers Solution, Lactated 1,000 ML IVC SCH (17:13)
[2020-10-03] MEDS: *HR* Heparin 5,000 UNIT/ML VIAL SQ SCH ×2 (17:32→23:20)
[2020-10-03] MEDS: FentaNYL (PF) 2,500 MCG/50 ML IV.SOLN IVC SCH (21:54)
[2020-10-03] MEDS: Norepinephrine 8 MG in 0.9 % Sodium Chloride 250 ML IVC SCH (23:25)
[2020-10-04] MEDS: Insulin LISPRO 300 UNITS/3 ML VIAL SUBQ SCH ×7 (00:02→23:20)
[2020-10-04] MEDS: Artificial Tears SOLN 15 ML BOTTLE BOTH EYES SCH ×7 (00:02→23:20)
[2020-10-04] MEDS: Ringers Solution, Lactated 1,000 ML IVC SCH ×4 (01:30→23:21)
[2020-10-04] MEDS: Midazolam HCl 50 MG/100 ML IV.SOLN IVC SCH ×3 (03:00→17:39)
[2020-10-04 03:58] LABS: Basophils % 0.4 %; Eosinophils # 0.1 K/mcL (0.0-0.6); Eosinophils % 1.2 %; Hematocrit 42.8 % (37.5-50.1); Immature Granulocytes % 0.5 % (0-4); Lymphocytes # 1.6 K/mcL (0.6-4.6); Lymphocytes % 14.9 %; Mean Corpuscular HGB Conc 30.4 g/dL (31.6-35.5); Mean Corpuscular Hemoglobin 28.6 pg (28.0-33.3); Mean Corpuscular Volume 94.1 fL (83.0-100.0); Mean Platelet Volume 8.6 fL (9.4-12.4); Monocytes # 0.9 K/mcL (0.0-1.3); Monocytes % 8.2 %; Neutrophils # 8.2 K/mcL (1.6-8.9); Platelet Count 164 K/mcL (140-400); Red Blood Count 4.55 M/mcL (4.19-5.50); Red Cell Distribution Width 13.8 % (11.5-14.5); Segmented Neutrophils % 74.8 %
[2020-10-04] MEDS: Levalbuterol Neb 1.25 MG/3 ML IH SCH ×4 (04:00→21:43)
[2020-10-04 04:09] LABS: Magnesium 2.1 mg/dL (1.6-2.6); Phosphorous 5.1 mg/dL (2.7-4.5); Potassium 5.7 mEq/L (3.5-5.1)
[2020-10-04 04:24] LABS: ABG Base Excess -2 mEq/L (-2 to 3); ABG HCO3 28 mEq/L (21-27); ABG Oxygen Saturation 84 % (95-98); ABG PCO2 73 mmHg (35-45); ABG PO2 62 mmHg (85-104); ABG TCO2 31 mEq/L (20-26); Blood Gas Modality AF; Blood Gas VT 520 cc
[2020-10-04 04:35] LABS: Platelet Estimate Normal (Normal)
[2020-10-04 05:01] LABS: ABG Base Excess -2 mEq/L (-2 to 3); ABG HCO3 29 mEq/L (21-27); ABG Oxygen Saturation 91 % (95-98); ABG PCO2 77 mmHg (35-45); ABG PH 7.17 pH Units (7.32-7.45); ABG PO2 78 mmHg (85-104); ABG TCO2 31 mEq/L (20-26); Blood Gas Modality AF; Blood Gas VT 520 cc
[2020-10-04] MEDS: FentaNYL (PF) 2,500 MCG/50 ML IV.SOLN IVC SCH ×2 (05:08→17:44)
[2020-10-04] MEDS ORDERED: Furosemide 40 MG/4 ML VIAL IVP ONE (05:23)
[2020-10-04] MEDS: *HR* Heparin 5,000 UNIT/ML VIAL SQ SCH ×3 (05:28→20:22)
[2020-10-04] MEDS: Pantoprazole 40 MG VIAL IVP SCH (05:29)
[2020-10-04] MEDS ORDERED: Sodium Bicarbonate 75 MEQ in 0.45 % Sodium Chloride 1,000 ML IVC SCH (05:30)
[2020-10-04 06:19] LABS: ABG Base Excess -1 mEq/L (-2 to 3); ABG HCO3 30 mEq/L (21-27); ABG Oxygen Saturation 96 % (95-98); ABG PCO2 77 mmHg (35-45); ABG PH 7.19 pH Units (7.32-7.45); ABG PO2 105 mmHg (85-104); ABG TCO2 32 mEq/L (20-26); Blood Gas Modality AF; Blood Gas VT 520 cc
[2020-10-04] MEDS: Vasopressin 40 UNIT in D5% in Water 100 ML IVC SCH ×2 (08:24→20:16)
[2020-10-04] MEDS: Ringers Solution, Lactated 500 ML IVC ONE ×2 (08:25→08:40)
[2020-10-04] MEDS: Piperacillin/Tazobactam 3.375 GM in 0.9 % Sodium Chloride Mini Bag 100 ML IVPB SCH ×3 (08:31→23:20)
[2020-10-04] MEDS: Chlorhexidine Rinse 15 ML MOUTHWASH MM SCH ×2 (08:32→20:22)
[2020-10-04] MEDS ORDERED: Silver Sulfadiazine 50 GM TUBE TP ONE (09:16)
[2020-10-04] MEDS: Norepinephrine 8 MG in 0.9 % Sodium Chloride 250 ML IVC SCH ×2 (09:50→19:34)
[2020-10-04 10:01] LABS: VBG Ionized Calcium 1.05 mmol/L (1.15-1.35)
[2020-10-04 10:38] LABS: Adenovirus Not Detected (Not Detect); Bordetella Pertussis Not Detected (Not Detect); Chlamydophila pneumoniae Not Detected (Not Detect); Coronavirus 229E Not Detected (Not Detect); Coronavirus HKU1 Not Detected (Not Detect); Coronavirus NL63 Not Detected (Not Detect); Coronavirus OC43 Not Detected (Not Detect); Human Metapneumovirus Not Detected (Not Detect); Human Rhinovirus/Enterovirus Not Detected (Not Detect); Influenza A Subtype 2009 H1 Not Detected (Not Detect); Influenza B Not Detected (Not Detect); Mycoplasma pneumoniae Not Detected (Not Detect); Parainfluenza Virus 1 Not Detected (Not Detect); Parainfluenza Virus 2 Not Detected (Not Detect); Parainfluenza Virus 3 Not Detected (Not Detect); Parainfluenza Virus 4 Not Detected (Not Detect); Respiratory Syncytial Virus Not Detected (Not Detect); SARS-CoV-2 Not Detected (Not Detect)
[2020-10-04 10:59] LABS: Bacteria,Urine Few per hpf (None-Few); Bilirubin,Urine Negative (Negative); Blood,Urine Small (Negative); Clarity,Urine Ex.Turbid (Clear); Color,Urine Yellow (Yellow); Glucose,Urine (UA) Normal (Normal); Hyaline Casts,Urine Few per lpf (None Seen); Ketones,Urine Negative (Negative); Leukocyte Esterase,Urine Negative (Negative); Mucus,Urine Few per lpf (None-Few); Nitrite,Urine Negative (Negative); Protein,Urine 30 mg/dL (Neg-Trace); RBC,Urine 15-30 per hpf (0-3); Squamous Epithelial Cell,Urine Moderate per hpf (None-Few); Urobilinogen,Urine Normal (Normal); WBC,Urine 50-100 per hpf (0-3)
[2020-10-04 11:46] LABS: ABG Base Excess 1 mEq/L (-2 to 3); ABG HCO3 28 mEq/L (21-27); ABG Oxygen Saturation 98 % (95-98); ABG PCO2 55 mmHg (35-45); ABG PH 7.32 pH Units (7.32-7.45); ABG PO2 110 mmHg (85-104); ABG TCO2 30 mEq/L (20-26); Blood Gas Modality AF; Blood Gas VT 520 cc
[2020-10-04] MEDS: Vancomycin 2,000 MG/520 ML IV.SOLN IVPB SCH (11:47)
[2020-10-04] MEDS: SODIUM ZIRCONIUM CYCLOSILICATE 5 GM POWD.PACK PO SCH (13:59)
[2020-10-04] MEDS: Amiodarone Premix 360 MG/200 ML BAG IVC SCH (17:38)
[2020-10-05] MEDS ORDERED: Vancomycin 2,000 MG/520 ML IV.SOLN IVPB SCH
[2020-10-05] MEDS: Midazolam HCl 50 MG/100 ML IV.SOLN IVC SCH ×2 (00:40→09:31)
[2020-10-05] MEDS: Artificial Tears SOLN 15 ML BOTTLE BOTH EYES SCH ×6 (03:25→23:31)
[2020-10-05] MEDS: Insulin LISPRO 300 UNITS/3 ML VIAL SUBQ SCH ×5 (03:25→20:36)
[2020-10-05 03:29] LABS: Eosinophils # 0.3 K/mcL (0.0-0.6); Hematocrit 37.2 % (37.5-50.1); Hemoglobin 11.6 g/dL (12.9-16.9); Mean Corpuscular HGB Conc 31.2 g/dL (31.6-35.5); Mean Corpuscular Hemoglobin 29.3 pg (28.0-33.3); Mean Corpuscular Volume 93.9 fL (83.0-100.0); Mean Platelet Volume 8.9 fL (9.4-12.4); Platelet Count 148 K/mcL (140-400); Red Blood Count 3.96 M/mcL (4.19-5.50); Red Cell Distribution Width 13.8 % (11.5-14.5); White Blood Count 7.5 K/mcL (4.3-11.1)
[2020-10-05 03:32] LABS: VBG Ionized Calcium 1.23 mmol/L (1.15-1.35)
[2020-10-05 03:52] LABS: BUN/Creatinine Ratio 13 (6-26); Blood Urea Nitrogen 17 mg/dL (6-20); Calcium 8.8 mg/dL (8.6-10.3); Carbon Dioxide 27 mEq/L (23-29); Chloride 109 mEq/L (98-107); Glucose 166 mg/dL (70-105); Magnesium 2.1 mg/dL (1.6-2.6); Osmolality,Calculated 297 (280-300); Phosphorous 2.2 mg/dL (2.7-4.5); Potassium 3.5 mEq/L (3.5-5.1); Sodium 141 mEq/L (136-145); eGFR For African Americans > 60 (> 60); eGFR For Non-African Americans > 60 (> 60)
[2020-10-05 04:01] LABS: Platelet Estimate Normal (Normal)
[2020-10-05] MEDS: Levalbuterol Neb 1.25 MG/3 ML IH SCH (04:01)
[2020-10-05 04:03] LABS: Anisocytosis 1+ (Not Present); Lymphocytes # 1.4 K/mcL (0.6-4.6); Neutrophils # 5.9 K/mcL (1.6-8.9); Smudge Cells Present (Not Present); Toxic Granulation Present (Not Present)
[2020-10-05 04:36] LABS: ABG Base Excess 2 mEq/L (-2 to 3); ABG HCO3 28 mEq/L (21-27); ABG Oxygen Saturation 98 % (95-98); ABG PCO2 52 mmHg (35-45); ABG PH 7.35 pH Units (7.32-7.45); ABG PO2 115 mmHg (85-104); ABG TCO2 30 mEq/L (20-26); Blood Gas VT 520 cc
[2020-10-05] MEDS: FentaNYL (PF) 2,500 MCG/50 ML IV.SOLN IVC SCH (05:10)
[2020-10-05] MEDS: Pantoprazole 40 MG VIAL IVP SCH (05:42)
[2020-10-05] MEDS: *HR* Heparin 5,000 UNIT/ML VIAL SQ SCH ×3 (05:43→20:37)
[2020-10-05 07:21] LABS: Troponin I 0.04 ng/mL (< 0.04)
[2020-10-05] MEDS: Piperacillin/Tazobactam 3.375 GM in 0.9 % Sodium Chloride Mini Bag 100 ML IVPB SCH ×2 (07:59→15:39)
[2020-10-05] MEDS: Ringers Solution, Lactated 1,000 ML IVC SCH ×2 (07:59→15:39)
[2020-10-05] MEDS: Chlorhexidine Rinse 15 ML MOUTHWASH MM SCH ×2 (08:01→20:36)
[2020-10-05] MEDS: SODIUM ZIRCONIUM CYCLOSILICATE 5 GM POWD.PACK PO SCH (08:26)
[2020-10-05] MEDS: Ipratropium/Albuterol Neb 3 ML IH SCH ×3 (09:05→21:00)
[2020-10-05] MEDS: Norepinephrine 8 MG in 0.9 % Sodium Chloride 250 ML IVC SCH (11:05)
[2020-10-05] MEDS: Hydrocortisone Sodium Succ 100 MG/2 ML VIAL IVP SCH ×2 (12:02→17:06)
[2020-10-05] MEDS: Amiodarone Premix 360 MG/200 ML BAG IVC SCH (16:05)
[2020-10-05] MEDS: Vasopressin 40 UNIT in D5% in Water 100 ML IVC SCH (16:07)
[2020-10-05] MEDS ORDERED: *HR* Metoprolol 5 MG/5 ML VIAL IVP ONE (23:17)
[2020-10-06] MEDS: Ringers Solution, Lactated 1,000 ML IVC SCH ×3 (00:01→16:45)
[2020-10-06] MEDS: Hydrocortisone Sodium Succ 100 MG/2 ML VIAL IVP SCH ×5 (00:01→23:39)
[2020-10-06] MEDS: Piperacillin/Tazobactam 3.375 GM in 0.9 % Sodium Chloride Mini Bag 100 ML IVPB SCH ×4 (00:02→23:40)
[2020-10-06] MEDS: Midazolam HCl 50 MG/100 ML IV.SOLN IVC SCH (00:23)
[2020-10-06] MEDS: Insulin LISPRO 300 UNITS/3 ML VIAL SUBQ SCH ×7 (00:26→23:33)
[2020-10-06] MEDS ORDERED: *HR* Metoprolol 5 MG/5 ML VIAL IVP ONE (03:36)
[2020-10-06] MEDS: Ipratropium/Albuterol Neb 3 ML IH SCH ×4 (03:45→21:41)
[2020-10-06] MEDS: FentaNYL (PF) 2,500 MCG/50 ML IV.SOLN IVC SCH (04:00)
[2020-10-06 04:11] LABS: Basophils % 0.3 %; Eosinophils % 0.4 %; Hematocrit 37.4 % (37.5-50.1); Immature Granulocytes % 0.4 % (0-4); Lymphocytes # 0.6 K/mcL (0.6-4.6); Lymphocytes % 8.7 %; Mean Corpuscular HGB Conc 30.5 g/dL (31.6-35.5); Mean Corpuscular Volume 95.2 fL (83.0-100.0); Mean Platelet Volume 8.9 fL (9.4-12.4); Monocytes # 0.4 K/mcL (0.0-1.3); Monocytes % 5.7 %; Neutrophils # 5.8 K/mcL (1.6-8.9); Platelet Count 156 K/mcL (140-400); Red Blood Count 3.93 M/mcL (4.19-5.50); Red Cell Distribution Width 14.1 % (11.5-14.5); Segmented Neutrophils % 84.5 %; White Blood Count 6.8 K/mcL (4.3-11.1)
[2020-10-06 04:12] LABS: ABG Base Excess 0 mEq/L (-2 to 3); ABG HCO3 29 mEq/L (21-27); ABG Oxygen Saturation 94 % (95-98); ABG PCO2 73 mmHg (35-45); ABG PH 7.21 pH Units (7.32-7.45); ABG PO2 87 mmHg (85-104); ABG TCO2 32 mEq/L (20-26); Blood Gas VT 550 cc
[2020-10-06] MEDS: Artificial Tears SOLN 15 ML BOTTLE BOTH EYES SCH ×6 (04:15→23:33)
[2020-10-06 04:18] LABS: Hemoglobin 11.4 g/dL (12.9-16.9)
[2020-10-06 04:25] LABS: BUN/Creatinine Ratio 15 (6-26); Blood Urea Nitrogen 17 mg/dL (6-20); Calcium 8.8 mg/dL (8.6-10.3); Carbon Dioxide 28 mEq/L (23-29); Chloride 112 mEq/L (98-107); Glucose 138 mg/dL (70-105); Magnesium 2.4 mg/dL (1.6-2.6); Osmolality,Calculated 304 (280-300); Phosphorous 5.6 mg/dL (2.7-4.5); Potassium 3.7 mEq/L (3.5-5.1); Sodium 145 mEq/L (136-145); eGFR For African Americans > 60 (> 60); eGFR For Non-African Americans > 60 (> 60)
[2020-10-06] MEDS: Dexmedetomidine HCl 400 MCG/100 ML MLS IVC SCH ×3 (04:40→22:02)
[2020-10-06] MEDS: Pantoprazole 40 MG VIAL IVP SCH (05:38)
[2020-10-06] MEDS: *HR* Heparin 5,000 UNIT/ML VIAL SQ SCH ×3 (05:38→21:51)
[2020-10-06] MEDS: Chlorhexidine Rinse 15 ML MOUTHWASH MM SCH ×2 (08:25→19:48)
[2020-10-06] MEDS: Vancomycin 2,000 MG/520 ML IV.SOLN IVPB SCH ×2 (11:03)
[2020-10-06] MEDS: Vasopressin 40 UNIT in D5% in Water 100 ML IVC SCH (14:26)
[2020-10-06] MEDS: Amiodarone Premix 360 MG/200 ML BAG IVC SCH (16:46)
[2020-10-06] MEDS ORDERED: Vancomycin 2,000 MG/520 ML IV.SOLN IVPB SCH (23:00)
[2020-10-07] MEDS: Ringers Solution, Lactated 1,000 ML IVC SCH ×2 (00:36→08:21)
[2020-10-07] MEDS: Dexmedetomidine HCl 400 MCG/100 ML MLS IVC SCH ×9 (00:37→22:33)
[2020-10-07] MEDS: Artificial Tears SOLN 15 ML BOTTLE BOTH EYES SCH (03:40)
[2020-10-07] MEDS: Ipratropium/Albuterol Neb 3 ML IH SCH ×6 (03:42→23:15)
[2020-10-07] MEDS: Insulin LISPRO 300 UNITS/3 ML VIAL SUBQ SCH ×6 (03:57→23:50)
[2020-10-07 04:12] LABS: Basophils % 0.5 %; Eosinophils % 0.7 %; Hematocrit 36.7 % (37.5-50.1); Hemoglobin 11.1 g/dL (12.9-16.9); Immature Granulocytes % 0.5 % (0-4); Lymphocytes % 18.4 %; Mean Corpuscular HGB Conc 30.2 g/dL (31.6-35.5); Mean Corpuscular Hemoglobin 28.6 pg (28.0-33.3); Mean Corpuscular Volume 94.6 fL (83.0-100.0); Mean Platelet Volume 8.8 fL (9.4-12.4); Monocytes # 0.4 K/mcL (0.0-1.3); Monocytes % 7.3 %; Neutrophils # 4.1 K/mcL (1.6-8.9); Platelet Count 143 K/mcL (140-400); Red Blood Count 3.88 M/mcL (4.19-5.50); Red Cell Distribution Width 13.8 % (11.5-14.5); Segmented Neutrophils % 72.6 %; White Blood Count 5.6 K/mcL (4.3-11.1)
[2020-10-07 04:31] LABS: BUN/Creatinine Ratio 26 (6-26); Blood Urea Nitrogen 28 mg/dL (6-20); Calcium 8.8 mg/dL (8.6-10.3); Carbon Dioxide 26 mEq/L (23-29); Chloride 112 mEq/L (98-107); Glucose 150 mg/dL (70-105); Magnesium 2.6 mg/dL (1.6-2.6); Osmolality,Calculated 308 (280-300); Phosphorous 2.3 mg/dL (2.7-4.5); Potassium 3.4 mEq/L (3.5-5.1); Sodium 145 mEq/L (136-145); eGFR For African Americans > 60 (> 60); eGFR For Non-African Americans > 60 (> 60)
[2020-10-07] MEDS: *HR* Heparin 5,000 UNIT/ML VIAL SQ SCH ×3 (05:44→21:28)
[2020-10-07] MEDS: Pantoprazole 40 MG VIAL IVP SCH (05:46)
[2020-10-07] MEDS: Hydrocortisone Sodium Succ 100 MG/2 ML VIAL IVP SCH ×2 (05:46→11:45)
[2020-10-07] MEDS: Piperacillin/Tazobactam 3.375 GM in 0.9 % Sodium Chloride Mini Bag 100 ML IVPB SCH ×3 (08:21→23:51)
[2020-10-07] MEDS ORDERED: Potassium Chloride 20 MEQ, Lidocaine 1% 2 ML in 0.9 % Sodium Chloride 250 ML IVPB ONE (11:44)
[2020-10-07] MEDS ORDERED: Furosemide 20 MG/2 ML VIAL IVP ONE (11:46)
[2020-10-07] MEDS ORDERED: Albumin 25% 25gram/100mL 25 GM/100 ML IV.SOLN IVPB ONE (11:46)
[2020-10-07] MEDS ORDERED: *HR* Labetalol 20 MG/4 ML SYRINGE IVP ONE (11:48)
[2020-10-07] MEDS: Vasopressin 40 UNIT in D5% in Water 100 ML IVC SCH (12:22)
[2020-10-07] MEDS ORDERED: *HR* Labetalol 20 MG/4 ML SYRINGE IVP PRN (12:29)
[2020-10-07] MEDS ORDERED: Potassium Phosphate 44 MEQ in 0.9 % Sodium Chloride 250 ML IVPB ONE (12:30)
[2020-10-07] MEDS: *HR* LORazepam 2 MG/ML VIAL IVP PRN (13:54)
[2020-10-07 15:35] LABS: BUN/Creatinine Ratio 27 (6-26); Blood Urea Nitrogen 31 mg/dL (6-20); Calcium 9.2 mg/dL (8.6-10.3); Carbon Dioxide 30 mEq/L (23-29); Chloride 110 mEq/L (98-107); Glucose 154 mg/dL (70-105); Osmolality,Calculated 312 (280-300); Potassium 3.6 mEq/L (3.5-5.1); Sodium 146 mEq/L (136-145); eGFR For African Americans > 60 (> 60); eGFR For Non-African Americans > 60 (> 60)
[2020-10-07] MEDS: Amiodarone Premix 360 MG/200 ML BAG IVC SCH (17:01)
[2020-10-08] MEDS: Dexmedetomidine HCl 400 MCG/100 ML MLS IVC SCH ×6 (02:23→21:27)
[2020-10-08] MEDS: Ipratropium/Albuterol Neb 3 ML IH SCH ×5 (03:49→20:35)
[2020-10-08] MEDS: Insulin LISPRO 300 UNITS/3 ML VIAL SUBQ SCH ×5 (04:24→20:03)
[2020-10-08 04:28] LABS: Basophils % 0.8 %; Eosinophils # 0.1 K/mcL (0.0-0.6); Eosinophils % 2.7 %; Hematocrit 35.2 % (37.5-50.1); Hemoglobin 10.8 g/dL (12.9-16.9); Immature Granulocytes % 1.5 % (0-4); Lymphocytes # 1.7 K/mcL (0.6-4.6); Mean Corpuscular HGB Conc 30.7 g/dL (31.6-35.5); Mean Corpuscular Hemoglobin 28.3 pg (28.0-33.3); Mean Corpuscular Volume 92.4 fL (83.0-100.0); Mean Platelet Volume 8.9 fL (9.4-12.4); Monocytes # 0.5 K/mcL (0.0-1.3); Monocytes % 10.1 %; Neutrophils # 2.4 K/mcL (1.6-8.9); Platelet Count 157 K/mcL (140-400); Red Blood Count 3.81 M/mcL (4.19-5.50); Red Cell Distribution Width 13.4 % (11.5-14.5); Segmented Neutrophils % 49.9 %; White Blood Count 4.7 K/mcL (4.3-11.1)
[2020-10-08 04:44] LABS: BUN/Creatinine Ratio 29 (6-26); Blood Urea Nitrogen 26 mg/dL (6-20); Calcium 8.7 mg/dL (8.6-10.3); Carbon Dioxide 28 mEq/L (23-29); Chloride 105 mEq/L (98-107); Glucose 122 mg/dL (70-105); Magnesium 2.4 mg/dL (1.6-2.6); Osmolality,Calculated 296 (280-300); Phosphorous 2.9 mg/dL (2.7-4.5); Potassium 3.2 mEq/L (3.5-5.1); Sodium 140 mEq/L (136-145); eGFR For African Americans > 60 (> 60); eGFR For Non-African Americans > 60 (> 60)
[2020-10-08] MEDS ORDERED: Potassium Effervescent 25 MEQ TABLET.EFF PO ONE (05:18)
[2020-10-08] MEDS: Pantoprazole 40 MG VIAL IVP SCH (05:38)
[2020-10-08] MEDS: *HR* Heparin 5,000 UNIT/ML VIAL SQ SCH ×3 (05:38→22:20)
[2020-10-08] MEDS: Piperacillin/Tazobactam 3.375 GM in 0.9 % Sodium Chloride Mini Bag 100 ML IVPB SCH ×2 (08:29→15:45)
[2020-10-08] MEDS ORDERED: Furosemide 40 MG/4 ML VIAL IVP ONE (10:00)
[2020-10-08] MEDS ORDERED: Isovue-370 500 ML BOTTLE IVP ONE (11:03)
[2020-10-08] MEDS: Doxycycline 100 MG in 0.9 % Sodium Chloride Mini Bag 100 ML IVPB SCH (14:08)
[2020-10-08 15:16] LABS: Adenovirus Not Detected (Not Detect); Bordetella Pertussis Not Detected (Not Detect); Chlamydophila pneumoniae Not Detected (Not Detect); Coronavirus 229E Not Detected (Not Detect); Coronavirus HKU1 Not Detected (Not Detect); Coronavirus NL63 Not Detected (Not Detect); Coronavirus OC43 Not Detected (Not Detect); Human Metapneumovirus Not Detected (Not Detect); Human Rhinovirus/Enterovirus Not Detected (Not Detect); Influenza A Subtype 2009 H1 Not Detected (Not Detect); Influenza B Not Detected (Not Detect); Mycoplasma pneumoniae Not Detected (Not Detect); Parainfluenza Virus 1 Not Detected (Not Detect); Parainfluenza Virus 2 Not Detected (Not Detect); Parainfluenza Virus 3 Not Detected (Not Detect); Parainfluenza Virus 4 Not Detected (Not Detect); Respiratory Syncytial Virus Not Detected (Not Detect); SARS-CoV-2 Not Detected (Not Detect)
[2020-10-08] MEDS: MethylPREDNISolone 40 MG/ML VIAL IVP SCH (15:45)
[2020-10-08] MEDS: Amiodarone Premix 360 MG/200 ML BAG IVC SCH (20:03)
[2020-10-08] MEDS ORDERED: Insulin LISPRO 300 UNITS/3 ML VIAL SUBQ SCH (21:00)
[2020-10-09] MEDS: Piperacillin/Tazobactam 3.375 GM in 0.9 % Sodium Chloride Mini Bag 100 ML IVPB SCH ×3 (00:01→18:05)
[2020-10-09] MEDS: MethylPREDNISolone 40 MG/ML VIAL IVP SCH ×3 (00:02→20:58)
[2020-10-09] MEDS: Ipratropium/Albuterol Neb 3 ML IH SCH ×8 (00:23→23:05)
[2020-10-09] MEDS: Dexmedetomidine HCl 400 MCG/100 ML MLS IVC SCH ×6 (00:55→20:09)
[2020-10-09] MEDS: Doxycycline 100 MG in 0.9 % Sodium Chloride Mini Bag 100 ML IVPB SCH ×2 (01:54→15:07)
[2020-10-09 03:24] LABS: Basophils % 0.4 %; Hematocrit 36.4 % (37.5-50.1); Hemoglobin 11.4 g/dL (12.9-16.9); Immature Granulocytes % 4.3 % (0-4); Lymphocytes # 0.6 K/mcL (0.6-4.6); Lymphocytes % 25.2 %; Mean Corpuscular HGB Conc 31.3 g/dL (31.6-35.5); Mean Corpuscular Hemoglobin 28.6 pg (28.0-33.3); Mean Corpuscular Volume 91.5 fL (83.0-100.0); Mean Platelet Volume 9.2 fL (9.4-12.4); Monocytes # 0.1 K/mcL (0.0-1.3); Monocytes % 5.1 %; Neutrophils # 1.7 K/mcL (1.6-8.9); Platelet Count 169 K/mcL (140-400); Red Blood Count 3.98 M/mcL (4.19-5.50); Red Cell Distribution Width 12.9 % (11.5-14.5); White Blood Count 2.5 K/mcL (4.3-11.1)
[2020-10-09 03:43] LABS: BUN/Creatinine Ratio 21 (6-26); Blood Urea Nitrogen 19 mg/dL (6-20); Calcium 9.1 mg/dL (8.6-10.3); Carbon Dioxide 31 mEq/L (23-29); Chloride 101 mEq/L (98-107); Glucose 223 mg/dL (70-105); Magnesium 2.2 mg/dL (1.6-2.6); Osmolality,Calculated 295 (280-300); Phosphorous 3.3 mg/dL (2.7-4.5); Potassium 3.7 mEq/L (3.5-5.1); Sodium 138 mEq/L (136-145); eGFR For African Americans > 60 (> 60); eGFR For Non-African Americans > 60 (> 60)
[2020-10-09] MEDS: *HR* LORazepam 2 MG/ML VIAL IVP PRN (04:06)
[2020-10-09] MEDS: Pantoprazole 40 MG VIAL IVP SCH (05:29)
[2020-10-09] MEDS: *HR* Heparin 5,000 UNIT/ML VIAL SQ SCH (05:30)
[2020-10-09] MEDS ORDERED: *HR* LORazepam 2 MG/ML VIAL IVP ONE (06:15)
[2020-10-09] MEDS ORDERED: Insulin LISPRO 300 UNITS/3 ML VIAL SUBQ SCH ×2 (07:30→21:00)
[2020-10-09] MEDS ORDERED: Gabapentin 300 MG CAPSULE PO SCH (09:00)
[2020-10-09] MEDS ORDERED: *HR* Enoxaparin 120 MG/0.8 ML SYRINGE SQ SCH (09:15)
[2020-10-09] MEDS ORDERED: D5% in Water 1,000 ML IVC PRN (12:05)
[2020-10-09] MEDS ORDERED: *HR* Dextrose 50 % in Water (Vial) 50 ML VIAL IVP PRN (12:05)
[2020-10-09] MEDS ORDERED: *HR* LORazepam 2 MG/ML VIAL IVP PRN (12:05)
[2020-10-09] MEDS ORDERED: Naloxone 0.4 MG/ML INJ IVP PRN (12:05)
[2020-10-09] MEDS ORDERED: Amiodarone Premix 360 MG/200 ML BAG IVC SCH (12:05)
[2020-10-09] MEDS ORDERED: Dextrose Gel 15 GM/37.5 ML TUBE PO PRN ×2 (12:05)
[2020-10-09] MEDS ORDERED: Albuterol 2.5 MG/3 ML NEBULIZER IH PRN (12:05)
[2020-10-09] MEDS ORDERED: Ondansetron 4 MG/2 ML VIAL IVP PRN (12:05)
[2020-10-09] MEDS ORDERED: *HR* Labetalol 20 MG/4 ML SYRINGE IVP PRN (12:05)
[2020-10-09] MEDS: Gabapentin 300 MG CAPSULE PO SCH ×2 (15:08→20:56)
[2020-10-09] MEDS: Insulin LISPRO 300 UNITS/3 ML VIAL SUBQ SCH (18:27)
[2020-10-09] MEDS: Sennosides/Docusate Sodium TABLET PO SCH (20:57)
[2020-10-09] MEDS: *HR* Enoxaparin 120 MG/0.8 ML SYRINGE SQ SCH (20:57)
[2020-10-10] MEDS: Dexmedetomidine HCl 400 MCG/100 ML MLS IVC SCH (00:20)
[2020-10-10] MEDS: Piperacillin/Tazobactam 3.375 GM in 0.9 % Sodium Chloride Mini Bag 100 ML IVPB SCH ×2 (00:21→09:09)
[2020-10-10] MEDS: Doxycycline 100 MG in 0.9 % Sodium Chloride Mini Bag 100 ML IVPB SCH (01:59)
[2020-10-10] MEDS: Ipratropium/Albuterol Neb 3 ML IH SCH ×3 (03:56→11:06)
[2020-10-10 05:03] LABS: Basophils % 0.3 %; Eosinophils % 0.3 %; Hemoglobin 11.1 g/dL (12.9-16.9); Immature Granulocytes % 4.5 % (0-4); Lymphocytes # 1.1 K/mcL (0.6-4.6); Lymphocytes % 33.9 %; Mean Corpuscular HGB Conc 31.7 g/dL (31.6-35.5); Mean Corpuscular Hemoglobin 29.2 pg (28.0-33.3); Mean Corpuscular Volume 92.1 fL (83.0-100.0); Mean Platelet Volume 9.4 fL (9.4-12.4); Monocytes # 0.2 K/mcL (0.0-1.3); Monocytes % 7.2 %; Neutrophils # 1.8 K/mcL (1.6-8.9); Platelet Count 213 K/mcL (140-400); Red Cell Distribution Width 13.4 % (11.5-14.5); Segmented Neutrophils % 53.8 %; White Blood Count 3.3 K/mcL (4.3-11.1)
[2020-10-10 05:23] LABS: BUN/Creatinine Ratio 24 (6-26); Blood Urea Nitrogen 20 mg/dL (6-20); Calcium 9.1 mg/dL (8.6-10.3); Carbon Dioxide 28 mEq/L (23-29); Chloride 103 mEq/L (98-107); Glucose 307 mg/dL (70-105); Osmolality,Calculated 298 (280-300); Phosphorous 2.8 mg/dL (2.7-4.5); Potassium 3.3 mEq/L (3.5-5.1); Sodium 137 mEq/L (136-145); eGFR For African Americans > 60 (> 60); eGFR For Non-African Americans > 60 (> 60)
[2020-10-10 05:24] LABS: Albumin 3.3 g/dL (3.5-5.7); Albumin/Globulin Ratio 1.2 (1.1-2.2); Bilirubin,Direct 0.1 mg/dL (0.0-0.2); Bilirubin,Indirect 0.2 mg/dL (0.0-1.0); Bilirubin,Total 0.3 mg/dL (0.3-1.0); Globulin 2.7 g/dL (2.4-3.5)
[2020-10-10] MEDS ORDERED: Pantoprazole 40 MG VIAL IVP SCH (06:30)
[2020-10-10] MEDS ORDERED: Potassium Chloride 40 MEQ, Lidocaine 1% 2 ML in 0.9 % Sodium Chloride 500 ML IVPB ONE (07:43)
[2020-10-10] MEDS ORDERED: carvediloL 6.25 MG TABLET PO SCH (08:00)
[2020-10-10] MEDS: Sennosides/Docusate Sodium TABLET PO SCH (09:10)
[2020-10-10] MEDS: Gabapentin 300 MG CAPSULE PO SCH (09:10)
[2020-10-10] MEDS: MethylPREDNISolone 40 MG/ML VIAL IVP SCH (09:10)
[2020-10-10] MEDS: Insulin LISPRO 300 UNITS/3 ML VIAL SUBQ SCH ×2 (09:11→11:44)
[2020-10-10] MEDS: *HR* Enoxaparin 120 MG/0.8 ML SYRINGE SQ SCH (09:11)
[2020-10-10 11:21] VITALS: BP 190/114
== END 2020-10-10 12:25 | disposition left against medical advice (07) | DRG 812 ==
LOC: EMEROOARM 23:36 → 2NNU 23:36 → ICNU 10-03 04:36 → SUATTDRO 10-03 05:24 → 2NNU 10-09 13:32
PROVIDERS: ADMIT Internal Medicine; ATTEND Pharmacist

== ENCOUNTER 2021-10-06 20:54 | Inpatient (IN) ==
[2021-10-06] MEDS ORDERED: Ipratropium/Albuterol Neb 3 ML IH ONE (21:05)
[2021-10-06] MEDS: *HR* LORazepam 2 MG/ML VIAL IVP PRN ×2 (21:20→21:39)
[2021-10-06] MEDS ORDERED: *HR* LORazepam 2 MG/ML VIAL IVP ONE ×2 (21:42→22:15)
[2021-10-06] MEDS ORDERED: Haloperidol Lactate 5 MG/ML VIAL IVP ONE (22:15)
[2021-10-06] MEDS ORDERED: Albuterol 2.5 MG/3 ML NEBULIZER IH ONE (22:30)
[2021-10-06] MEDS ORDERED: Haloperidol Lactate 5 MG/ML VIAL IVP PRN (22:33)
[2021-10-06 22:37] LABS: Basophils % 0.5 %; Eosinophils # 0.2 K/mcL (0.0-0.6); Hematocrit 48.3 % (37.5-50.1); Immature Granulocytes % 0.5 % (0-4); Lymphocytes # 1.9 K/mcL (0.6-4.6); Lymphocytes % 22.1 %; Mean Corpuscular HGB Conc 33.1 g/dL (31.6-35.5); Mean Corpuscular Hemoglobin 29.9 pg (28.0-33.3); Mean Corpuscular Volume 90.1 fL (83.0-100.0); Mean Platelet Volume 9.1 fL (9.4-12.4); Monocytes # 0.4 K/mcL (0.0-1.3); Monocytes % 4.2 %; Platelet Count 192 K/mcL (140-400); Red Blood Count 5.36 M/mcL (4.19-5.50); Red Cell Distribution Width 13.2 % (11.5-14.5); Segmented Neutrophils % 70.7 %; White Blood Count 8.5 K/mcL (4.3-11.1)
[2021-10-06 22:38] LABS: Alanine Aminotransferase 17 Units/L (7-52); Albumin 4.4 g/dL (3.5-5.7); Albumin/Globulin Ratio 1.6 (1.1-2.2); Alkaline Phosphatase 58 Units/L (34-104); Aspartate Amino Transferase 22 Units/L (13-39); BUN/Creatinine Ratio 13 (6-26); Bilirubin,Direct 0.1 mg/dL (0.0-0.2); Bilirubin,Indirect 0.2 mg/dL (0.0-1.0); Bilirubin,Total 0.3 mg/dL (0.3-1.0); Blood Urea Nitrogen 12 mg/dL (6-20); Calcium 10.2 mg/dL (8.6-10.3); Carbon Dioxide 25 mEq/L (23-29); Chloride 98 mEq/L (98-107); Ethanol < 10 mg/dL (Less than 10); Globulin 2.7 g/dL (2.4-3.5); Glucose 225 mg/dL (70-105); Magnesium 1.9 mg/dL (1.6-2.6); Osmolality,Calculated 281 (280-300); Sodium 132 mEq/L (136-145); Total Protein 7.1 g/dL (6.4-8.9); eGFR For African Americans > 60 (> 60); eGFR For Non-African Americans > 60 (> 60)
[2021-10-06 22:40] LABS: Troponin I 0.03 ng/mL (< 0.04)
[2021-10-06 22:54] LABS: VBG HCO3 28 mEq/L (21-27); VBG PCO2 60 mmHg (41-51); VBG PH 7.28 pH Units (7.32-7.42); VBG PO2 43 mmHg (25-50)
[2021-10-06 22:54] LABS: Bilirubin,Urine Negative (Negative); Blood,Urine Negative (Negative); Clarity,Urine Clear (Clear); Color,Urine Yellow (Yellow); Glucose,Urine (UA) 70 mg/dL (Normal); Ketones,Urine Negative (Negative); Leukocyte Esterase,Urine Negative (Negative); Mucus,Urine Few per lpf (None-Few); Nitrite,Urine Negative (Negative); Protein,Urine 100 mg/dL (Neg-Trace); RBC,Urine 0-3 per hpf (0-3); Specific Gravity,Urine 1.023 (1.010-1.025); Urobilinogen,Urine Normal (Normal); WBC,Urine 0-3 per hpf (0-3)
[2021-10-06 23:10] LABS: Amphetamine Screen,Urine Positive ng/mL (Cutoff=1000); Barbiturate Screen,Urine Negative ng/mL (Cutoff=200); Benzodiazepines Screen,Urine Negative ng/mL (Cutoff=200); Cannabinoid Screen,Urine Negative ng/mL (Cutoff = 50); Cocaine Screen,Urine Negative ng/mL (Cutoff= 300); Opiate Screen,Urine Negative ng/mL (Cutoff=300); Phencyclidine Screen,Urine Negative ng/mL (Cutoff=25)
[2021-10-07 00:09] LABS: Acetaminophen < 10 mcg/mL (10-20); Salicylate < 2.5 mg/dL (15.0-30.0)
[2021-10-07 00:26] LABS: ABG Base Excess 0 mEq/L (-2 to 3); ABG HCO3 26 mEq/L (21-27); ABG Oxygen Saturation 95 % (95-98); ABG PCO2 48 mmHg (35-45); ABG PH 7.34 pH Units (7.32-7.45); ABG PO2 78 mmHg (85-104); ABG TCO2 28 mEq/L (20-26); Blood Gas Pressure Support 3 cm H2O
[2021-10-07] MEDS ORDERED: Isovue-370 500 ML BOTTLE IVP ONE (01:12)
[2021-10-07] MEDS ORDERED: Ondansetron 4 MG/2 ML VIAL IVP PRN (01:35)
[2021-10-07] MEDS ORDERED: Naloxone 0.4 MG/ML INJ IVP PRN (01:35)
[2021-10-07] MEDS ORDERED: Perflutren Lipid Microsphere 1.3 ML in 0.9 % Sodium Chloride 8.7 ML IVP PRN (01:42)
[2021-10-07 02:23] LABS: Adenovirus Not Detected (Not Detect); Bordetella Pertussis Not Detected (Not Detect); Chlamydophila pneumoniae Not Detected (Not Detect); Coronavirus 229E Not Detected (Not Detect); Coronavirus HKU1 Not Detected (Not Detect); Coronavirus NL63 Not Detected (Not Detect); Coronavirus OC43 Not Detected (Not Detect); Human Metapneumovirus Not Detected (Not Detect); Human Rhinovirus/Enterovirus Not Detected (Not Detect); Influenza A Subtype 2009 H1 Not Detected (Not Detect); Influenza B Not Detected (Not Detect); Mycoplasma pneumoniae Not Detected (Not Detect); Parainfluenza Virus 1 Not Detected (Not Detect); Parainfluenza Virus 2 Not Detected (Not Detect); Parainfluenza Virus 3 Not Detected (Not Detect); Parainfluenza Virus 4 Not Detected (Not Detect); Respiratory Syncytial Virus Not Detected (Not Detect); SARS-CoV-2 Not Detected (Not Detect)
[2021-10-07] MEDS ORDERED: Dextrose 4 GM Chewable Tablets PO PRN ×2 (03:20)
[2021-10-07] MEDS ORDERED: D5% in Water 1,000 ML IVC PRN (03:20)
[2021-10-07] MEDS ORDERED: *HR* Dextrose 50 % in Water (Syg) 50 ML SYRINGE IVP PRN (03:20)
[2021-10-07] MEDS: Insulin LISPRO 300 UNITS/3 ML VIAL SUBQ SCH ×4 (04:52→18:48)
[2021-10-07 06:00] LABS: INR 1.1; Prothrombin Time 12.7 Seconds (9.4-12.1)
[2021-10-07] MEDS ORDERED: Vancomycin 2,000 MG/520 ML IV.SOLN IVPB ONE (06:00)
[2021-10-07 06:08] LABS: Hematocrit 51.8 % (37.5-50.1); Hemoglobin 16.9 g/dL (12.9-16.9); Mean Corpuscular HGB Conc 32.6 g/dL (31.6-35.5); Mean Corpuscular Hemoglobin 30.3 pg (28.0-33.3); Mean Platelet Volume 9.1 fL (9.4-12.4); Platelet Count 155 K/mcL (140-400); Red Blood Count 5.57 M/mcL (4.19-5.50); Red Cell Distribution Width 13.2 % (11.5-14.5); White Blood Count 8.4 K/mcL (4.3-11.1)
[2021-10-07] MEDS ORDERED: 0.9 % Sodium Chloride 500 ML IVC PRN (06:15)
[2021-10-07 06:22] LABS: BUN/Creatinine Ratio 13 (6-26); Blood Urea Nitrogen 12 mg/dL (6-20); Calcium 9.7 mg/dL (8.6-10.3); Carbon Dioxide 24 mEq/L (23-29); Chloride 99 mEq/L (98-107); Glucose 171 mg/dL (70-105); Magnesium 1.7 mg/dL (1.6-2.6); Osmolality,Calculated 280 (280-300); Potassium 5.5 mEq/L (3.5-5.1); Sodium 133 mEq/L (136-145); Troponin I 0.06 ng/mL (< 0.04); eGFR For African Americans > 60 (> 60); eGFR For Non-African Americans > 60 (> 60)
[2021-10-07 06:53] LABS: Lymphocytes # 1.3 K/mcL (0.6-4.6); Monocytes # 0.8 K/mcL (0.0-1.3); Neutrophils # 6.2 K/mcL (1.6-8.9)
[2021-10-07 06:54] LABS: Platelet Estimate Normal (Normal)
[2021-10-07 07:12] LABS: ABG Base Excess 1 mEq/L (-2 to 3); ABG HCO3 26 mEq/L (21-27); ABG Oxygen Saturation 88 % (95-98); ABG PCO2 42 mmHg (35-45); ABG PO2 56 mmHg (85-104); ABG TCO2 27 mEq/L (20-26)
[2021-10-07] MEDS ORDERED: Cefepime HCl 2,000 MG in 0.9 % Sodium Chloride 10 ML IVP SCH (08:00)
[2021-10-07] MEDS ORDERED: Ringers Solution, Lactated 1,000 ML IVC ONE (08:21)
[2021-10-07] MEDS ORDERED: SODIUM ZIRCONIUM CYCLOSILICATE 5 GM POWD.PACK PO SCH (09:00)
[2021-10-07] MEDS: 0.9 % Sodium Chloride 1,000 ML IVC SCH ×2 (09:06→10:58)
[2021-10-07] MEDS ORDERED: Ipratropium/Albuterol Neb 3 ML ONE (11:41)
[2021-10-07] MEDS: Ipratropium/Albuterol Neb 3 ML IH SCH ×4 (11:46→23:18)
[2021-10-07] MEDS ORDERED: *HR* LORazepam 2 MG/ML VIAL IVP PRN (14:17)
[2021-10-07] MEDS: Acetaminophen 325 MG TABLET PO PRN (14:35)
[2021-10-07 15:29] LABS: Creatine Kinase 272 Units/L (30-223)
[2021-10-07 18:44] LABS: Estimated Average Glucose 143 mg/dl; Hemoglobin A1C 6.6 %
[2021-10-07] MEDS: Piperacillin/Tazobactam 3.375 GM in 0.9 % Sodium Chloride Mini Bag 100 ML IVPB SCH (18:47)
[2021-10-08] MEDS: Acetaminophen 325 MG TABLET PO PRN (00:17)
[2021-10-08] MEDS: Piperacillin/Tazobactam 3.375 GM in 0.9 % Sodium Chloride Mini Bag 100 ML IVPB SCH ×4 (00:17→23:11)
[2021-10-08 03:54] LABS: Hematocrit 39.5 % (37.5-50.1); Mean Corpuscular HGB Conc 32.7 g/dL (31.6-35.5); Mean Corpuscular Volume 91.9 fL (83.0-100.0); Platelet Count 143 K/mcL (140-400); Red Cell Distribution Width 13.2 % (11.5-14.5); White Blood Count 8.5 K/mcL (4.3-11.1)
[2021-10-08] MEDS: Ipratropium/Albuterol Neb 3 ML IH SCH ×5 (04:04→20:40)
[2021-10-08 04:10] LABS: Hemoglobin 12.9 g/dL (12.9-16.9)
[2021-10-08 04:17] LABS: BUN/Creatinine Ratio 14 (6-26); Blood Urea Nitrogen 10 mg/dL (6-20); Calcium 8.9 mg/dL (8.6-10.3); Carbon Dioxide 27 mEq/L (23-29); Chloride 97 mEq/L (98-107); Glucose 129 mg/dL (70-105); Osmolality,Calculated 271 (280-300); Potassium 3.6 mEq/L (3.5-5.1); Sodium 130 mEq/L (136-145); eGFR For African Americans > 60 (> 60); eGFR For Non-African Americans > 60 (> 60)
[2021-10-08] MEDS: *HR* Heparin 5,000 UNIT/ML VIAL SQ SCH ×4 (06:10→20:01)
[2021-10-08] MEDS: Insulin LISPRO 300 UNITS/3 ML VIAL SUBQ SCH ×3 (08:51→16:42)
[2021-10-08] MEDS ORDERED: Ringers Solution, Lactated 1,000 ML IVC ONE (10:20)
[2021-10-08] MEDS ORDERED: *HR* LORazepam 2 MG/ML VIAL IVP PRN ×2 (10:23)
[2021-10-08] MEDS: Thiamine (B-1) 200 MG in 0.9 % Sodium Chloride 50 ML IVPB SCH (10:53)
[2021-10-08] MEDS: *HR* LORazepam 2 MG/ML VIAL IVP PRN ×2 (17:07→21:51)
[2021-10-09] MEDS: Ipratropium/Albuterol Neb 3 ML IH SCH ×7 (00:07→23:36)
[2021-10-09] MEDS: *HR* LORazepam 2 MG/ML VIAL IVP PRN (03:57)
[2021-10-09] MEDS: *HR* Heparin 5,000 UNIT/ML VIAL SQ SCH ×3 (05:02→20:07)
[2021-10-09] MEDS: Piperacillin/Tazobactam 3.375 GM in 0.9 % Sodium Chloride Mini Bag 100 ML IVPB SCH ×3 (07:53→23:04)
[2021-10-09] MEDS: Insulin LISPRO 300 UNITS/3 ML VIAL SUBQ SCH ×3 (08:11→16:45)
[2021-10-09] MEDS: 0.9 % Sodium Chloride 1,000 ML IVC SCH ×2 (08:21→16:43)
[2021-10-09 09:28] LABS: Basophils % 0.5 %; Eosinophils # 0.2 K/mcL (0.0-0.6); Eosinophils % 2.8 %; Hematocrit 41.2 % (37.5-50.1); Hemoglobin 13.4 g/dL (12.9-16.9); Immature Granulocytes % 0.7 % (0-4); Lymphocytes % 17.6 %; Mean Corpuscular HGB Conc 32.5 g/dL (31.6-35.5); Mean Corpuscular Hemoglobin 29.8 pg (28.0-33.3); Mean Corpuscular Volume 91.8 fL (83.0-100.0); Mean Platelet Volume 9.1 fL (9.4-12.4); Monocytes # 0.3 K/mcL (0.0-1.3); Monocytes % 5.9 %; Neutrophils # 4.1 K/mcL (1.6-8.9); Platelet Count 139 K/mcL (140-400); Red Blood Count 4.49 M/mcL (4.19-5.50); Red Cell Distribution Width 13.1 % (11.5-14.5); Segmented Neutrophils % 72.5 %; White Blood Count 5.6 K/mcL (4.3-11.1)
[2021-10-09 09:35] LABS: INR 1.3; Prothrombin Time 14.5 Seconds (9.4-12.1)
[2021-10-09 09:47] LABS: Alanine Aminotransferase 9 Units/L (7-52); Albumin 3.5 g/dL (3.5-5.7); Albumin/Globulin Ratio 1.2 (1.1-2.2); Alkaline Phosphatase 36 Units/L (34-104); Aspartate Amino Transferase 11 Units/L (13-39); BUN/Creatinine Ratio 14 (6-26); Bilirubin,Total 0.4 mg/dL (0.3-1.0); Blood Urea Nitrogen 10 mg/dL (6-20); Calcium 9.2 mg/dL (8.6-10.3); Carbon Dioxide 26 mEq/L (23-29); Chloride 100 mEq/L (98-107); Globulin 2.9 g/dL (2.4-3.5); Glucose 140 mg/dL (70-105); Osmolality,Calculated 273 (280-300); Potassium 3.7 mEq/L (3.5-5.1); Sodium 131 mEq/L (136-145); Total Protein 6.4 g/dL (6.4-8.9); eGFR For African Americans > 60 (> 60); eGFR For Non-African Americans > 60 (> 60)
[2021-10-09] MEDS: Folic Acid 1 MG in 0.9 % Sodium Chloride 50 ML IVPB SCH (13:56)
[2021-10-09] MEDS: Thiamine (B-1) 200 MG in 0.9 % Sodium Chloride 50 ML IVPB SCH (13:57)
[2021-10-09] MEDS ORDERED: *HR* Metoprolol 5 MG/5 ML VIAL IVP PRN (14:39)
[2021-10-10] MEDS: 0.9 % Sodium Chloride 1,000 ML IVC SCH (04:03)
[2021-10-10] MEDS: Ipratropium/Albuterol Neb 3 ML IH SCH ×4 (04:18→15:26)
[2021-10-10] MEDS: *HR* Heparin 5,000 UNIT/ML VIAL SQ SCH ×2 (05:28→13:34)
[2021-10-10] MEDS: Insulin LISPRO 300 UNITS/3 ML VIAL SUBQ SCH ×2 (07:55→13:34)
[2021-10-10] MEDS: Piperacillin/Tazobactam 3.375 GM in 0.9 % Sodium Chloride Mini Bag 100 ML IVPB SCH (07:55)
[2021-10-10] MEDS: Folic Acid 1 MG in 0.9 % Sodium Chloride 50 ML IVPB SCH (07:56)
[2021-10-10] MEDS: Thiamine (B-1) 200 MG in 0.9 % Sodium Chloride 50 ML IVPB SCH (07:57)
[2021-10-10 09:07] LABS: Basophils % 0.5 %; Eosinophils # 0.1 K/mcL (0.0-0.6); Eosinophils % 3.1 %; Hematocrit 40.5 % (37.5-50.1); Hemoglobin 12.8 g/dL (12.9-16.9); Immature Granulocytes % 1.3 % (0-4); Lymphocytes # 1.1 K/mcL (0.6-4.6); Lymphocytes % 28.1 %; Mean Corpuscular HGB Conc 31.6 g/dL (31.6-35.5); Mean Corpuscular Hemoglobin 29.5 pg (28.0-33.3); Mean Corpuscular Volume 93.3 fL (83.0-100.0); Mean Platelet Volume 9.1 fL (9.4-12.4); Monocytes # 0.3 K/mcL (0.0-1.3); Monocytes % 6.4 %; Neutrophils # 2.4 K/mcL (1.6-8.9); Platelet Count 167 K/mcL (140-400); Red Blood Count 4.34 M/mcL (4.19-5.50); Red Cell Distribution Width 13.2 % (11.5-14.5); Segmented Neutrophils % 60.6 %; White Blood Count 3.9 K/mcL (4.3-11.1)
[2021-10-10 09:30] LABS: BUN/Creatinine Ratio 16 (6-26); Blood Urea Nitrogen 12 mg/dL (6-20); Carbon Dioxide 28 mEq/L (23-29); Chloride 104 mEq/L (98-107); Glucose 151 mg/dL (70-105); Osmolality,Calculated 287 (280-300); Potassium 3.7 mEq/L (3.5-5.1); Sodium 137 mEq/L (136-145); eGFR For African Americans > 60 (> 60); eGFR For Non-African Americans > 60 (> 60)
[2021-10-10 10:48] VITALS: TEMP 98.4
[2021-10-10 15:46] VITALS: BP 152/89; PULSE 109; O2SAT 94
== END 2021-10-10 18:03 | DRG 817 ==
LOC: 2NENU 20:54 → EMEROOARM 20:54 → 2NENU 10-07 02:30
PROVIDERS: ADMIT Internal Medicine; ATTEND Internal Medicine

== ENCOUNTER 2021-10-10 18:38 | Observation (INO) ==
[~2021-10-10 18:38] MED LIST: *HR* LORazepam 1 MG TABLET PO PRN; *HR* LORazepam 2 MG/ML VIAL IM PRN; Acetaminophen 325 MG TABLET PO PRN; Albuterol 2.5 MG/3 ML NEBULIZER IH PRN; Haloperidol Lactate 5 MG/ML VIAL IM PRN; Ibuprofen 400 MG TABLET PO PRN; MOM Conc 10 ML UD.LIQ PO PRN; Mag Hydrox/Al Hydrox/Simeth 30 ML UDC PO PRN; Nicotine 2 MG GUM BC PRN; QUEtiapine Fumarate 25 MG TABLET PO PRN; haloperidoL 5 MG TABLET PO PRN; hydrOXYzine pamoate 25 MG CAPSULE PO PRN
[2021-10-10 18:58] VITALS: O2SAT 96
[2021-10-11 08:34] VITALS: BP 147/95; PULSE 106; TEMP 98.8
[2021-10-11] MEDS ORDERED: Vitamin B Complex/Vit C/Vit E 1 EACH TABLET PO SCH (09:00)
[2021-10-11] MEDS ORDERED: Nicotine 21 MG PATCH.TD24 TD SCH (09:00)
== END 2021-10-11 16:03 | disposition home or self-care (01) ==
LOC: 1ANU
PROVIDERS: ADMIT Psychiatry & Neurology Forensic Psychiatry; ATTEND Psychiatry & Neurology Forensic Psychiatry